=== PATIENT | male | born 1965 | race Caucasian/White ===

== ENCOUNTER 2023-12-01 18:45 | Inpatient (IN) ==
--- NOTE | 2023-12-01 19:08 | Emergency Department Note ---
Impression & Plan Urinary tract infection ADMIT ED Provider Note HPI: History obtained from patient. 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 Patient states that he did notice some pain 2 to 3 days ago in his left foot area. He states that he has been bandaging it daily as he did notice that the ulcer on the bottom of his foot was having some purulent drainage. Patient states he also had some dark-colored urine during this time. Patient states today he had some subjective fever/chills and generally did not feel well and he was concerned that he might have an infection in his foot or in his urine. On arrival here to the ED the patient is mildly tachycardic at 111, he is otherwise hemodynamically stable and saturating well on room air. Patient is afebrile on arrival. ROS: - Per HPI Differential Diagnosis: Sepsis, infected diabetic foot ulcer, cellulitis, urinary tract infection, pyelonephritis, amongst other potential pathologies. *Outpatient medications and allergy history reviewed. PE: General: Alert HEENT: Normocephalic, trachea midline Eyes: Extraocular eye movement is intact, no scleral erythema Pulmonary: Clear to auscultation bilaterally, no wheezing Cardio: Regular rate and rhythm GI: Abdomen is soft to palpation : No suprapubic tenderness MSK: Left foot is status post amputation of the first and second digit, there is moderate dorsal erythema of the left foot to the lateral aspect of the foot that is blanchable, there is no crepitus to palpation, there is mild surrounding erythema to an ulceration approximately 1 cm in diameter on the bottom of the foot with some mild purulent drainage Skin: No evidence of rash Neuro: Alert, no focal deficits Psychiatric: Cooperative INDEPENDENT INTERPRETATIONS: security monitor: (As interpreted by myself): - An order was placed for continuous cardiac monitoring - Patient was noted to be in sinus rhythm with a rate of 105 Interventions provided in ED: -IV fluid bolus, IV cefepime Medical Decision Making: IV was established and lab work obtained, patient was placed on residential monitor. Lab work shows a leukocytosis of 17.32, hemoglobin is stable at 11.7, platelet count is normal, CMP does not show any evidence of any critical findings. Urinalysis does appear to be consistent with infection, 2+ ketones are noted, urine nitrite is positive, leukocyte Estrace is 1+, there is no pyuria. Patient's foot also appears to have a mild cellulitis, x-ray imaging of the foot does not show any evidence of subcutaneous air/infection. No obvious osteomyelitis per my interpretation. Radiology interpretation is pending. With cellulitis in conjunction with his diabetes and foot ulcer as well as urinary tract infection with significant leukocytosis I feel the patient should be admitted for IV antibiotics and further care. I did discuss this with the patient and his significant other at the bedside and they are in agreement. Case was then discussed with the on-call hospitalist, Dr. Trujillo, and the patient was placed for admission in stable condition. Consultants/Discussions held with other healthcare providers: -Hospitalist, Dr. Trujillo Disposition discussion held by myself with: -Patient and patient's at the bedside Diagnosis: 1. Leukocytosis, acute 2. Diabetic foot ulcer, acute, left foot, with cellulitis 3. Urinary tract infection, acute 4. Ketonuria, acute Disposition: Admission Pedro Conde DO Emergency Medicine Past Med/Surg History Problem List (Updated 12/02/23 @ 00:03 by Pedro Conde DO) Urinary tract infection (Acute) Sepsis Social History Smoking Status: Former smoker Preferred Language: [place] Feels Safe at Home: Yes Allergies Allergies Allergy/AdvReac Type Severity Reaction Status Date / Time No Known Allergies Allergy Verified 12/01/23 19:15 Home Meds Home Medications Medication Instructions Recorded Confirmed insulin aspart U-100 100 unit/mL 1 sliding scale dose subcut UD 12/01/23 12/01/23 subcutaneous solution insulin glargine 100 unit/mL 15 unit subcut DAILY 12/01/23 12/01/23 subcutaneous solution (Lantus U-100 Insulin) Results & Data (ED) Vital Signs Vital Signs - 24 hr 12/01/23 18:46 12/01/23 19:26 12/01/23 19:26 Temperature 37 C Temperature Source Temporal Artery Scan Pulse Rate 111 H 102 H Pulse Rate [Apical] 100 H Pulse Rhythm Regular Pulse Rhythm [Apical] Regular Pulse Strength [Apical] Normal Respiratory Rate 20 16 16 Respiratory Effort / Characteristics Non-Labored Spontaneous Non-Labored Spontaneous Respiratory Depth Normal Normal Respiratory Pattern Regular Blood Pressure 128/61 Blood Pressure [Left Arm] 127/73 Blood Pressure Mean 83 Blood Pressure Mean [Left Arm] 91 Blood Pressure Position Sitting Blood Pressure Position [Left Arm] Sitting Pulse Oximetry 95 97 97 Oxygen Delivery Method Room Air Room Air Room Air Sepsis Recent Fever Within 48 Hours No Sepsis New/Unexplained Change in Mental Status No Sepsis Action Taken by Nursing No Action Required 12/01/23 19:31 12/01/23 23:00 12/01/23 23:21 Temperature Temperature Source Pulse Rate 100 H 91 H Pulse Rate [Apical] 88 Pulse Rhythm Pulse Rhythm [Apical] Regular Pulse Strength [Apical] Normal Respiratory Rate 16 Respiratory Effort / Characteristics Non-Labored Spontaneous Respiratory Depth Normal Respiratory Pattern Regular Blood Pressure Blood Pressure [Left Arm] 121/72 Blood Pressure Mean Blood Pressure Mean [Left Arm] 88 Blood Pressure Position Blood Pressure Position [Left Arm] Lying Pulse Oximetry 99 Oxygen Delivery Method Room Air Sepsis Recent Fever Within 48 Hours Sepsis New/Unexplained Change in Mental Status Sepsis Action Taken by Nursing Laboratory Data 12/01/23 19:19 12/01/23 19:19 Lab Results 12/01/23 12/01/23 Range/Units 19:19 20:49 WBC 17.32 H (4.8-10.8) K/ul RBC 4.15 L (4.70-6.10) M/uL Hgb 11.7 L (14.0-18.0) g/dl Hct 34.9 L (42.0-52.0) % MCV 84.1 (80.0-100.0) fL MCH 28.2 (25.0-34.0) pg MCHC 33.5 (32.0-36.0) g/dL RDW Std Deviation 37.5 (36.4-46.3) fL RDW Coeff of Sean 12.3 (11.5-14.5) % Plt Count 240 (130-400) K/uL MPV 10.1 (9.4-12.4) fL Immature Gran % (Auto) 0.6 % Neut % (Auto) 87.4 % Lymph % (Auto) 5.4 % [place] % (Auto) 6.4 % Eos % (Auto) 0.0 % Baso % (Auto) 0.2 % Neut # (Auto) 15.13 H (1.40-6.50) K/uL Lymph # (Auto) 0.94 L (1.20-3.40) K/uL [place] # (Auto) 1.11 H (0.11-0.59) K/uL Eos # (Auto) 0.00 (0.00-0.50) K/uL Baso # (Auto) 0.03 (0.00-0.20) K/uL Immature Gran # (Auto) 0.11 (0.01-0.20) K/uL PT 13.3 H (9.0-12.0) Seconds INR 1.2 H (0.9-1.1) Sodium 133 L (136-145) mmol/L Potassium 3.8 (3.5-5.1) mmol/L Chloride 101 (98-107) mmol/L Carbon Dioxide 23 (21-32) mmol/L Anion Gap 9 (3-11) BUN 25 H (6-23) mg/dl Creatinine 0.96 (0.6-1.4) mg/dl Est Cr Clr Drug Dosing 91.0 ml/min Est GFR ( Amer) 102.7 ml/min Est GFR (Non-Af Amer) 88.6 ml/min BUN/Creatinine Ratio 26.0 H (10-20) Glucose 247 H (70-99(Fasting)) mg/dl Calcium 9.5 (8.6-10.3) mg/dl Total Bilirubin 1.9 H (0.2-1.0) mg/dl AST 21 (13-39) U/L ALT 23 (7-52) U/L Alkaline Phosphatase 114 H (34-104) U/L Total Protein 6.7 (6.0-8.3) gm/dl Albumin 3.7 (3.4-5.0) gm/dl Globulin 3.0 (2.5-4.0) gm/dl Albumin/Globulin Ratio 1.2 (0.9-2) Lipase 6 L (11-82) U/L Urine Color [place] Urine Appearance Cloudy A (Clear) Urine pH 5.5 (4.5-7.5) Ur Specific [place] 1.035 H (1.000-1.030) Urine Protein 2+ H (Negative) Urine Glucose (UA) Negative (Negative) Urine Ketones 2+ H (Negative) Urine Blood Negative (Negative) Urine Nitrite Positive A (Negative) Urine Bilirubin 1+ H (Negative) Urine Urobilinogen Positive H (Negative) Ur Leukocyte Esterase 1+ H (Negative) Urine WBC (Auto) 0-5 (0-5) /hpf Urine RBC (Auto) 3-5 H (0-2) /hpf U Hyaline Cast (Auto) 11-20 H (0-2) /lpf U Epithel Cells (Auto) 3-5 H (0-2) /hpf Urine Bacteria (Auto) None Seen (None Seen) Urine Mucus Present A (None Prsent) Adenovirus (PCR) Not Detected (NotDetected) B. pertussis DNA (PCR) Not Detected (NotDetected) B.parapertussis DNA PCR Not Detected (NotDetected) C. pneumoniae DNA (PCR) Not Detected (NotDetected) Coronavirus OC43 (PCR) Not Detected (NotDetected) Coronavirus HKU1 (PCR) Not Detected (NotDetected) Coronavirus 229E (PCR) Not Detected (NotDetected) SARS-CoV-2 (PCR) Not Detected (NotDetected) Coronavirus NL63 (PCR) Not Detected (NotDetected) Human Metapneumovir PCR Not Detected (NotDetected) Influenza Type A (PCR) Not Detected (NotDetected) Influenza Type B (PCR) Not Detected (NotDetected) M. pneumoniae (PCR) Not Detected (NotDetected) Parainfluenza 1 (PCR) Not Detected (NotDetected) Parainfluenza 2 (PCR) Not Detected (NotDetected) Parainfluenza 3 (PCR) Not Detected (NotDetected) Parainfluenza 4 (PCR) Not Detected (NotDetected) RSV (PCR) Not Detected (NotDetected) Entero/Rhino (PCR) Not Detected (NotDetected) Administered Medications Discontinued Medications Sodium Chloride (Nss) 1,000 mls @ 999 mls/hr IV .Q1H1M STA Stop: 12/01/23 19:54 Last Infusion: 12/01/23 20:29 Dose: Infused Documented By: Admin: 12/01/23 19:21 Dose: 999 mls/hr Documented By: JONATHAN Cefepime HCl (Maxipime) 2,000 mg in 20 mls @ 5 mls/min IV NOW STA; Protocol Stop: 12/01/23 21:58 Last Admin: 12/01/23 23:06 Dose: 5 mls/min Documented By: SNS Discharge Plan Visit Data Chief Complaint: Urinary Symptoms Stated Complaint: POSSIBLE UTI, SWEATS, SHAKING ED Provider: Pedro Conde Discharge Problem: Urinary tract infection Forms Stand Alone Forms: [facility] Prescriptions Prescriptions: No Action insulin glargine [Lantus U-100 Insulin] 100 unit/mL solution 15 unit SUBCUT DAILY insulin aspart U-100 100 unit/mL solution 1 sliding scale dose subcut UD Rx Instructions: inject subcutaneously as directed CARB RATIO 1 UNIT 20 G with breakfast, 1 to 15 Grams with lunch and dinner plus 1 unit for 60 points blood gucose is above 120. MAXIUM OF 30 UNITS DAILY Referrals Referrals: PCP,NO [Physician] - Discharge Problem: Urinary tract infection Qualifiers: Urinary tract infection type: site unspecified Hematuria presence: with hematuria Qualified Code(s): N39.0 - Urinary tract infection, site not specified ; R31.9 - Hematuria, unspecified
[2023-12-01] MEDS: SODIUM CHLORIDE 0.9% 1,000 ML IV STA (19:21)
[2023-12-01 19:35] LABS: Basophils # (auto) 0.03 K/uL (0.00-0.20); Basophils % (auto) 0.2 %; Hematocrit (blood only) 34.9 % (42.0-52.0); Hemoglobin 11.7 g/dl (14.0-18.0); Immature Granulocytes # (auto) 0.11 K/uL (0.01-0.20); Immature Granulocytes % (auto) 0.6 %; Lymphocytes # (auto) 0.94 K/uL (1.20-3.40); Lymphocytes % (auto) 5.4 %; Mean Corpuscular Hemoglobin 28.2 pg (25.0-34.0); Mean Corpuscular Hgb Conc 33.5 g/dL (32.0-36.0); Mean Corpuscular Volume 84.1 fL (80.0-100.0); Mean Platelet Volume 10.1 fL (9.4-12.4); Monocytes # (auto) 1.11 K/uL (0.11-0.59); Monocytes % (auto) 6.4 %; Neutrophils # (auto) 15.13 K/uL (1.40-6.50); Neutrophils % (auto) 87.4 %; Platelet Count 240 K/uL (130-400); RDW Coefficient of Variation 12.3 % (11.5-14.5); RDW Standard Deviation 37.5 fL (36.4-46.3); Red Blood Count 4.15 M/uL (4.70-6.10); White Blood Count 17.32 K/ul (4.8-10.8)
[2023-12-01 19:49] LABS: Albumin Globulin Ratio 1.2 (0.9-2); Albumin Level 3.7 gm/dl (3.4-5.0); Bilirubin,Total 1.9 mg/dl (0.2-1.0); Calcium 9.5 mg/dl (8.6-10.3); Est GFR (African American) 102.7 ml/min; Est GFR (Non-African American) 88.6 ml/min; Potassium 3.8 mmol/L (3.5-5.1); Total Protein 6.7 gm/dl (6.0-8.3)
[2023-12-01 20:13] LABS: INR 1.2 (0.9-1.1); Prothrombin Time 13.3 Seconds (9.0-12.0)
[2023-12-01 20:15] LABS: Adenovirus PCR Not Detected (NotDetected); Bordetella parapertussis PCR Not Detected (NotDetected); Bordetella pertussis PCR Not Detected (NotDetected); Chlamydia pneumoniae PCR Not Detected (NotDetected); Coronavirus 229E PCR Not Detected (NotDetected); Coronavirus CoV-2 (COVID19)PCR Not Detected (NotDetected); Coronavirus HKU1 PCR Not Detected (NotDetected); Coronavirus NL63 PCR Not Detected (NotDetected); Coronavirus OC43PCR Not Detected (NotDetected); Human Metapneumovirus PCR Not Detected (NotDetected); Influenza A PCR Not Detected (NotDetected); Influenza B PCR Not Detected (NotDetected); Mycoplasma pneumoniae PCR Not Detected (NotDetected); Parainfluenza Virus 1 PCR Not Detected (NotDetected); Parainfluenza Virus 2 PCR Not Detected (NotDetected); Parainfluenza Virus 3 PCR Not Detected (NotDetected); Parainfluenza Virus 4 PCR Not Detected (NotDetected); Respiratory Syncytial VirusPCR Not Detected (NotDetected); Rhinovirus/Enterovirus PCR Not Detected (NotDetected)
[2023-12-01 21:23] LABS: Appearance Urine Cloudy (Clear); Bacteria Urine Automated None Seen (None Seen); Bilirubin Urine 1+ (Negative); Blood Urine Negative (Negative); Color Urine Orange; Glucose Urine UA Negative (Negative); Ketones Urine 2+ (Negative); Leukocyte Esterase Urine 1+ (Negative); Mucus Urine Present (None Prsent); Nitrite Urine Positive (Negative); Protein Urine 2+ (Negative); Specific Gravity Urine 1.035 (1.000-1.030); Urobilinogen Urine Positive (Negative); WBC Urine Automated 0-5 /hpf (0-5); pH Urine 5.5 (4.5-7.5)
[2023-12-01] MEDS: CEFEPIME 2,000 MG/20 ML VIAL IV STA (23:06)
--- NOTE | 2023-12-01 23:17 | History & Physical Report ---
Date of Service December 01, 2023 Assessment & Plan (1) Sepsis: Plan: 57-year-old male with past medical history significant for type 1 diabetes, mild nonproliferative diabetic retinopathy, vitamin D deficiency, history of amputation of bilateral metatarsophalangeal joint comes because of fevers chills and dark urine going on since last Saturday and also callus in his left dorsal aspect of foot draining since last . In the ER urine came back positive . Patient had episode of mild burning micturition. Denies any blood in the urine. States he is following with podiatry at [facility] for his callus. He has special boots. Ambulating okay. He had episode of vomiting today. After that his appetite is improved. Feeling weak and tired. Denies any headache or dizziness. Vision is okay currently. No earache. Had runny nose for couple of days but currently resolved. No sore throat. Currently no cough. No chest pain or shortness of breath. Last couple of days slept on recliner and has some mild flank discomfort. No abdominal pain. Normal bowel movements. Currently attending [facility]. Possible early sepsis presented with tachycardia Has leukocytosis Having fevers at home per patient. has UTI Cellulitis and infected callus of left foot . Foot xray no osteomyelitis Empiric Zosyn and Dapto IV fluids Follow cultures N.p.o. for now Consult podiatry in a.m. Close monitoring Diabetes type 1 Currently n.p.o. Cut back on Lantus 7 dose units daily as patient is npo Sliding scale Will follow blood sugars and HbA1c levels Anemia Hemoglobin of 11.7 Recent outpatient hemoglobin 14.4 Will check stool for Hemoccult Needs follow-up Elevated bilirubin Bilirubin 1.9 Alk phos 114 Possible from sepsis Follow repeat labs. DVT prophylaxis SCDs for now Disposition Med/telemetry Full code. History of Present Illness Chief Complaint: UTI and left foot cellulitis Primary Care Provider: Joyce Curry DO 57-year-old male with past medical history significant for type 1 diabetes, mild nonproliferative diabetic retinopathy, vitamin D deficiency, history of amputation of bilateral metatarsophalangeal joint comes because of fevers chills and dark urine going on since last Saturday and also callus in his left dorsal aspect of foot draining since last . In the ER urine came back positive. Patient had episode of mild burning micturition. Denies any blood in the urine. States he is following with podiatry at [facility] for his callus. He has special boots. Ambulating okay. He had episode of vomiting today. After that his appetite is improved. Feeling weak and tired. Denies any headache or dizziness. Vision is okay currently. No earache. Had runny nose for couple of days but currently resolved. No sore throat. Currently no cough. No chest pain or shortness of breath. Last couple of days slept on recliner and has some mild flank discomfort. No abdominal pain. Normal bowel movements. Currently attending [facility]. Past medical history. As mentioned above. Past surgical history. Palate/uvula surgery. Amputation of metatarsophalangeal joint bilateral. S/p appendectomy. S/p cholecystectomy. Status post left hip partial hemiarthroplasty. Social history. . Former smoker [id number]. Currently no alcohol use. No drug use. Family history. Brother had heart disorder. Allergies Allergy/AdvReac Type Severity Reaction Status Date / Time No Known Allergies Allergy Verified 12/01/23 19:15 Home Medications Medication Instructions Recorded Confirmed Type insulin aspart U-100 100 unit/mL 1 sliding scale dose subcut UD 12/01/23 12/01/23 History subcutaneous solution insulin glargine 100 unit/mL 15 unit subcut DAILY 12/01/23 12/01/23 History subcutaneous solution (Lantus U-100 Insulin) Past Med/Surg History Problem List (Updated 12/02/23 @ 00:03 by Pedro Conde DO) Urinary tract infection (Acute) Sepsis Social History Smoking Status: Former smoker Hx Alcohol Use: Yes Alcohol type: beer Hx Substance Use: No Preferred Language: Lebanese Communication Ability: Effective 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 Head- atraumatic Eyes- PERRL. ENT- oropharynx clear Neck- supple, no JVD. Lungs- clear to auscultation no wheezing or crackles. Heart- regular rhythm; no murmur, no gallop. Abdomen- normal bowel sounds, soft, nontender, no distension. Extremities- Left foot dorsal aspect infected callus seen with mild drainage Neuro- alert, oriented PERRL, ; no facial palsy; no dysarthria; moves extremities Results & Data Results & Data Vital Signs (Past 12 Hours) Vital Signs Temp Pulse Pulse Resp BP BP Pulse Ox 12/01/23 23:00 88 16 121/72 99 12/01/23 19:31 100 H 12/01/23 19:26 102 H 16 97 12/01/23 19:26 100 H 16 127/73 97 12/01/23 18:46 37 C 111 H 20 128/61 95 O2 Del Method 12/01/23 23:00 Room Air 12/01/23 19:31 12/01/23 19:26 Room Air 12/01/23 19:26 Room Air 12/01/23 18:46 Room Air Diagnostic Findings Laboratory Results WBC 17.32 K/ul (4.8-10.8) H 12/01/23 19:19 RBC 4.15 M/uL (4.70-6.10) L 12/01/23 19:19 Hgb 11.7 g/dl (14.0-18.0) L 12/01/23 19:19 Hct 34.9 % (42.0-52.0) L 12/01/23 19:19 MCV 84.1 fL (80.0-100.0) 12/01/23 19:19 MCH 28.2 pg (25.0-34.0) 12/01/23 19:19 MCHC 33.5 g/dL (32.0-36.0) 12/01/23 19:19 RDW Std Deviation 37.5 fL (36.4-46.3) 12/01/23 19:19 RDW Coeff of Sean 12.3 % (11.5-14.5) 12/01/23 19:19 Plt Count 240 K/uL (130-400) 12/01/23 19:19 MPV 10.1 fL (9.4-12.4) 12/01/23 19:19 Immature Gran % (Auto) 0.6 % 12/01/23 19:19 Neut % (Auto) 87.4 % 12/01/23 19:19 Lymph % (Auto) 5.4 % 12/01/23 19:19 [place] % (Auto) 6.4 % 12/01/23 19:19 Eos % (Auto) 0.0 % 12/01/23 19:19 Baso % (Auto) 0.2 % 12/01/23 19:19 Neut # (Auto) 15.13 K/uL (1.40-6.50) H 12/01/23 19:19 Lymph # (Auto) 0.94 K/uL (1.20-3.40) L 12/01/23 19:19 [place] # (Auto) 1.11 K/uL (0.11-0.59) H 12/01/23 19:19 Eos # (Auto) 0.00 K/uL (0.00-0.50) 12/01/23 19:19 Baso # (Auto) 0.03 K/uL (0.00-0.20) 12/01/23 19:19 Immature Gran # (Auto) 0.11 K/uL (0.01-0.20) 12/01/23 19:19 PT 13.3 Seconds (9.0-12.0) H 12/01/23 19:19 INR 1.2 (0.9-1.1) H 12/01/23 19:19 Sodium 133 mmol/L (136-145) L 12/01/23 19:19 Potassium 3.8 mmol/L (3.5-5.1) 12/01/23 19:19 Chloride 101 mmol/L (98-107) 12/01/23 19:19 Carbon Dioxide 23 mmol/L (21-32) 12/01/23 19:19 Anion Gap 9 (3-11) 12/01/23 19:19 BUN 25 mg/dl (6-23) H 12/01/23 19:19 Creatinine 0.96 mg/dl (0.6-1.4) 12/01/23 19:19 Est Cr Clr Drug Dosing 91.0 ml/min 12/01/23 19:19 Est GFR ( Amer) 102.7 ml/min 12/01/23 19:19 Est GFR (Non-Af Amer) 88.6 ml/min 12/01/23 19:19 BUN/Creatinine Ratio 26.0 (10-20) H 12/01/23 19:19 Glucose 247 mg/dl (70-99(Fasting)) H 12/01/23 19:19 Calcium 9.5 mg/dl (8.6-10.3) 12/01/23 19:19 Total Bilirubin 1.9 mg/dl (0.2-1.0) H 12/01/23 19:19 AST 21 U/L (13-39) 12/01/23 19:19 ALT 23 U/L (7-52) 12/01/23 19:19 Alkaline Phosphatase 114 U/L (34-104) H 12/01/23 19:19 Total Protein 6.7 gm/dl (6.0-8.3) 12/01/23 19:19 Albumin 3.7 gm/dl (3.4-5.0) 12/01/23 19:19 Globulin 3.0 gm/dl (2.5-4.0) 12/01/23 19:19 Albumin/Globulin Ratio 1.2 (0.9-2) 12/01/23 19:19 Lipase 6 U/L (11-82) L 12/01/23 19:19 Urine Color [place] 12/01/23 20:49 Urine Appearance Cloudy (Clear) A 12/01/23 20:49 Urine pH 5.5 (4.5-7.5) 12/01/23 20:49 Ur Specific [place] 1.035 (1.000-1.030) H 12/01/23 20:49 Urine Protein 2+ (Negative) H 12/01/23 20:49 Urine Glucose (UA) Negative (Negative) 12/01/23 20:49 Urine Ketones 2+ (Negative) H 12/01/23 20:49 Urine Blood Negative (Negative) 12/01/23 20:49 Urine Nitrite Positive (Negative) A 12/01/23 20:49 Urine Bilirubin 1+ (Negative) H 12/01/23 20:49 Urine Urobilinogen Positive (Negative) H 12/01/23 20:49 Ur Leukocyte Esterase 1+ (Negative) H 12/01/23 20:49 Urine WBC (Auto) 0-5 /hpf (0-5) 12/01/23 20:49 Urine RBC (Auto) 3-5 /hpf (0-2) H 12/01/23 20:49 U Hyaline Cast (Auto) 11-20 /lpf (0-2) H 12/01/23 20:49 U Epithel Cells (Auto) 3-5 /hpf (0-2) H 12/01/23 20:49 Urine Bacteria (Auto) None Seen (None Seen) 12/01/23 20:49 Urine Mucus Present (None Prsent) A 12/01/23 20:49 Adenovirus (PCR) Not Detected (NotDetected) 12/01/23 19:19 B. pertussis DNA (PCR) Not Detected (NotDetected) 12/01/23 19:19 B.parapertussis DNA PCR Not Detected (NotDetected) 12/01/23 19:19 C. pneumoniae DNA (PCR) Not Detected (NotDetected) 12/01/23 19:19 Coronavirus OC43 (PCR) Not Detected (NotDetected) 12/01/23 19:19 Coronavirus HKU1 (PCR) Not Detected (NotDetected) 12/01/23 19:19 Coronavirus 229E (PCR) Not Detected (NotDetected) 12/01/23 19:19 SARS-CoV-2 (PCR) Not Detected (NotDetected) 12/01/23 19:19 Coronavirus NL63 (PCR) Not Detected (NotDetected) 12/01/23 19:19 Human Metapneumovir PCR Not Detected (NotDetected) 12/01/23 19:19 Influenza Type A (PCR) Not Detected (NotDetected) 12/01/23 19:19 Influenza Type B (PCR) Not Detected (NotDetected) 12/01/23 19:19 M. pneumoniae (PCR) Not Detected (NotDetected) 12/01/23 19:19 Parainfluenza 1 (PCR) Not Detected (NotDetected) 12/01/23 19:19 Parainfluenza 2 (PCR) Not Detected (NotDetected) 12/01/23 19:19 Parainfluenza 3 (PCR) Not Detected (NotDetected) 12/01/23 19:19 Parainfluenza 4 (PCR) Not Detected (NotDetected) 12/01/23 19:19 RSV (PCR) Not Detected (NotDetected) 12/01/23 19:19 Entero/Rhino (PCR) Not Detected (NotDetected) 12/01/23 19:19 Code Status & VTE Plan VTE Prophylaxis Plan VTE Prophylaxis will be ordered: Yes
--- OUTSIDE RECORDS SUMMARY | 2023-12-02 01:13 | External Medical Summary | Summary of Care ---
Author Name Unknown Organization [facility] Address [address] [place] [address] Phone [phone] Care Team Providers Care Etl Data Architect Name Role Phone Joyce Curry DO Primary Care Provider [phone]- [phone] Encounter Details Date Type Department Care Team (Late st Contact Info) Description 08/27/2023 Orders Only Family Practice [facility] [place] [address] [place] [address] Joyce Curry DO [address] [place] [address] Allergies Active Allergy Reactions Criticality Noted Date Comments Morphine 07/11/2022 documented as of this encounter (statuses as of 08/27/2023) Medications Medication Sig Dispensed Refills Start Date End Date Status NOVOLIN R 100 UNIT/ML IJ SOLNIndications:DM type 1, goal A1c below 7 1:30 carb ratio scale 1 Vial 5 12/17/2012 Active Ascorbic Acid 500 MG Oral Tablet Take 2 Tablets by mouth in the morning. 0 Active Aspirin 81 MG Oral Tablet Delayed Release Take 1 Tablet by mouth in the morning. 0 Active Cholecalciferol 25 MCG (1000 UT) Oral Tablet Take 1 Tablet by mouth in the morning. 0 Active Cinnamon 500 MG Oral Tablet Take 2 Tablets by mouth in the morning. 0 Active Cranberry 500 MG Oral Tablet Take by mouth 500 mg daily . 0 Active Baqsimi One Pack 3 MG/DOSE Nasal Powder (Glucagon) Administer into nostril as needed for Hypoglycemia (low sugar). Use 3 mg in the nose as needed (3 mg (one actuation) into a single nostril for hypoglycemia; if no response, may repeat in 15 minutes using a new intranasal device.) 0 Active Ketostix In Vitro Strip (Acetone (Urine) Test) USE 1 DIRECTED 0 12/08/2020 Acti ve Lutein 20 MG Oral Capsule Take 1 Capsule by mouth in the morning. 0 Active Potassium Gluconate 595 (99 K) MG Oral Tablet Take by mouth 1 Tablet daily . 0 Active Saw [place] Complex Ex St Oral Capsule Take by mouth 1 Capsule daily . 0 Active Vitamin-B Complex Oral Tablet Take by mouth 1 Tablet in the morning. 0 Active Lantus 100 UNIT/ML Subcutaneous Solution Inject 30 Units under the skin in the morning. 0 09/23/2021 Active Magnesium 400 MG Oral Tablet Take 1 Tablet by mouth every evening. 0 Active Insulin Aspart 100 UNIT/ML Injection Solution (NovoLOG) INJECT 5-6 UNITS SUBCUTANEOUSLY DIRECTED 4-5 TIMES A DAY. 1 UNIT FOR 50 MG BLOOD GLUCOSE ABOVE 150, MAX DAILY 30 UNITS 0 11/27/2021 Active documented as of this encounter (statuses as of 08/27/2023) Active Problems Problem Noted Date Diagnosed Date Type 1 diabetes mellitus wit h proliferative diabetic retinopathy without macular edema, left eye 07/17/2023 Type 1 diabetes mellitus wit h proliferative diabetic retinopathy without macular edema, right eye 02/04/2023 Mild nonproliferative diabetic retinopathy 07/11 Acquired absence of other left toe(s) 07/11/2022 Non-pressure chronic ulcer o f other part of left foot limited to breakdown of skin 07/11/2022 Type 1 diabetes mellitus with diabetic polyneuro seb 07/11/2022 Vitamin D deficiency 04/29/2019 Type 1 diabetes mellitus wit h hemoglobin A1c goal of less than 7.0% 02/10/2009 Overview: Per Diabetes Taxonomy. 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 ICD-10 update of inactive term documented as of this encounter (statuses as of 08/27/2023) Immunizations Name Administration Dates Next Due TDAP (age 10 and older)(Boostrix) 07/17/2023,01/2012 documented as of this encounter Social History Tobacco Use Types Packs/Day Years Used Date Smoking Tobacco: Former Cigarettes 3 1 987 - 1989 Smokeless Tobacco: Never Alcohol Use Standard Drinks/Week Comments Not Currently 0 (1 standard drink = 0.6 oz pur e alcohol) Sex and Gender Information Value Date Recorded Sex Assigned at Male 07/17/2023 6:54 AM EDT Gender Identity Male 07/17/2023 6:54 AM EDT Sexual Orientation Straight 07/17/2023 6: 54 AM EDT Job Start Date Occupation Industry Not on file Not on file Not on file documented as of this encounter Plan of Treatment Upcoming Encounters Date Type Department Care Team (Late st Contact Info) Description 07/22/2024 7:40 AM EDT Office Visit Family Practice [address] [place] [address] Joyce Curry DO [address] [place] [address] Pending Results Name Type Priority Associated Diagnoses Date /Time CHEMISTRY-OUTSIDE Lab Routine 024 Health Maintenance Due Date Last Done Comments Pneumococcal Vaccine: Pediatrics (0 to 5 Years) and At-Risk Patients (6 to 64 Years) (1 of 2 - PCV) 12/30/1973 HIV Screening 12/30/1982 Hepatitis C Screening 12/30/1985 Hepatitis B (1 of 3 - 19+ 3-dose series) 12/30/1986 Cologuard 12/30/2012 Fecal Occult Blood Test 12/30/2012 Sigmoidoscopy 12/30/2012 Diabetic Foot Exam 12/17/2013 12/17/2012, 12/19/2011 Zoster Vaccines (1 of 2) 12/30/2017 COVID-19 Vaccine ( - season) 2022 Albumin/Creatinine Ratio 08/26/2023 023, 08/09/2021, 12/17/2012, Additional history exists GFR 08/26/2023 08/25/2022, 07/15, 08/09/2021, Additional history exists HbA1c 11/08/2023 05/10/2023, 12/15, 08/25/2022, Additional history exists Influenza Vaccine (FLU shot) (Season Ended) 2023 Diabetic Eye Exam 12/29/2023 12/28/2022, , 11/05/2022, Additional history exists Depression Screening 07/16/2024 07/17/2023 Lipid Panel 08/26/2027 08/25/2022, 07/2012, 12/20/2010, Additional history exists Colonoscopy 02/20/2031 02/20/2021 Colorectal Cancer Screening 02/20/2031 DTaP,Tdap,and Td Vaccines (3 - Td or Tdap) 07/16/2033 07/17/2023, 10/23/2011 GARDASIL-HPV IMMUNIZATION SERIES Aged Out No longer eligible based on patient's age to complete this topic MENINGOCOCCAL (MENACTRA/MENVEO) Aged Out No longer eligible based on patient's age to complete this topic documented as of this encounter Medical Devices Not on filedocumented as of this encounter Care Teams Etl Data Architect Relationship Specialty Start Date End Date Joyce Curry DO [address] [facility] [place] [address] PCP - General Family Medicine 07/11/22 documented as of this encounter
--- OUTSIDE RECORDS SUMMARY | 2023-12-02 01:13 | External Medical Summary | Summary of Care ---
Author Name Unknown Organization [facility] Address [address] [place] [address] Phone [phone] Care Team Providers Care Crystal Attacher Name Role Phone Joyce Curry DO Primary Care Provider [phone]- [phone] Reason for Visit * Reason Comments Acute Video visit. Symptom s started last weekend, dark urine with burning sensation and frequency, symptoms have improved. Encounter Details Date Type Department Care Team (Late st Contact Info) Description 09/16/2023 9:00 AM EDT Telemedicine Family Practice [facility] [address] [place] [address] Eric Choi PA-C [address] [place] [address] Dysuria* Allergies Active Allergy Reactions Criticality Noted Date Comments Morphine 07/11/2022 documented as of this encounter (statuses as of 09/16/2023) Medications Medication Sig Dispensed Refills Start Date End Date Status Ascorbic Acid 500 MG Oral Tablet Take 2 Tablets by mouth in the morning. Active Aspirin 81 MG Oral Tablet Delayed Release Take 1 Tablet by mouth in the morning. Active Cholecalciferol 25 MCG (1000 UT) Oral Tablet Take 1 Tablet by mouth in the morning. Active Cinnamon 500 MG Oral Tablet Take 2 Tablets by mouth in the morning. Active Cranberry 500 MG Oral Tablet Take by mouth 500 mg daily . Active Baqsimi One Pack 3 MG/DOSE Nasal Powder (Glucagon) Administer into nostril as needed for Hypoglycemia (low sugar). Use 3 mg in the nose as needed (3 mg (one actuation) into a single nostril for hypoglycemia; if no response, may repeat in 15 minutes using a new intranasal device.) Active Ketostix In Vitro Strip (Acetone (Urine) Test) USE 1 DIRECTED 12/08/2020 Acti ve Lutein 20 MG Oral Capsule Take 1 Capsule by mouth in the morning. Active Potassium Gluconate 595 (99 K) MG Oral Tablet Take by mouth 1 Tablet daily . Active Saw [place] Complex Ex St Oral Capsule Take by mouth 1 Capsule daily . Active Vitamin-B Complex Oral Tablet Take by mouth 1 Tablet in the morning. Active Lantus 100 UNIT/ML Subcutaneous Solution Inject 30 Units under the skin in the morning. 09/23/2021 Active Magnesium 400 MG Oral Tablet Take 1 Tablet by mouth every evening. Active Insulin Aspart 100 UNIT/ML Injection Solution (NovoLOG) INJECT 5-6 UNITS SUBCUTANEOUSLY DIRECTED 4-5 TIMES A DAY. 1 UNIT FOR 50 MG BLOOD GLUCOSE ABOVE 150, MAX DAILY 30 UNITS 11/27/2021 Active Nitrofurantoin Monohyd Macro 100 MG Oral Capsule (Macrobid)Indicat ions:Dysuria Take 1 Capsule by mouth in the morning and 1 Capsule before bedtime. Do all this for 10 days. With food until gone. 20 Capsule 09/16/2023 09/26/19 24 Active NOVOLIN R 100 UNIT/ML IJ SOLNIndications:D M type 1, goal A1c below 7 1:30 carb ratio scale 1 Vial 5 12/17/2012 09/16/19 24 Discontinu ed(End of Procedure) documented as of this encounter (statuses as of 09/16/2023) Active Problems Problem Noted Date Diagnosed Date [...] Type 1 diabetes mellitus with diabetic polyneuro sbe 07/11/2022 Vitamin D deficiency 04/29/2019 Type 1 diabetes mellitus wit h hemoglobin A1c goal of less than 7.0% 02/10/2009 Overview: Per Diabetes Taxonomy. 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 ICD-10 update of inactive term documented as of this encounter (statuses as of 09/16/2023) Immunizations Name Administration Dates Next Due TDAP (age 10 and older)(Boostrix) 07/17/2023,01/2012 documented as of this encounter Social History Tobacco Use Types Packs/Day Years Used Date Smoking Tobacco: Former Cigarettes 1 7 - 1989 Smokeless Tobacco: Never Alcohol Use [...] on file documented as of this encounter Progress Notes * Eric Choi PA-C - 09/16/2023 9:10 AM EDT Images from the original note were not included. History of Present Illness Telemedicine: Patient location: HOME. I was in a hospital or clinic location. After connecting through [employer],patient was verified with two unique identifiers. 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 Methods to assure confidentiality were taken. Patient acknowledged consent and understanding of pr ivacy and security of the Telemedicine visit. The patient agreed to participate. Magen Castillo is a 57 year old male that presents for acute visit. Video visit. Symptoms started 1-2 weeks ago. Reported sx's of darker urine with burning, frequency.Also felt fatigued and low energy, as well as temporary poor appetitive. Had a couple episodes of night sweats. Admitted to stress at that time as he was busy getting ready for a camping trip. Stateshe was drinking a lot of Celsius energy drink, was wonder if this was contributing. Denied hematuria, flank pain, fever, abd pain, N/V/D/C. Sx's went away by this weekend. Still has mild burning, butstates urine color has cleared up to a mid-dark yellow. - does have distant hx of renal calculi. He states this does not feel like a stone to him, but doesfeel like a UTI. ? Prostatitis. They will be camping for the rest of this week, so at least 4-5 more days. Hx of type I diabetes, follows with endo. Labs 08/2023 reviewed - A1C 6.6; BMP normal. Patient Active Problem List Diagnosis Type 1 diabetes mellitus with hemoglobin A1c goal of less than 7.0% (HCC) Mild nonproliferative diabetic retinopathy (HCC) Vitamin D deficiency Acquired absence of other left toe(s) (HCC) Non-pressure chronic ulcer of other part of left foot limited to breakdown of skin (HCC) Type 1 diabetes mellitus with diabetic polyneuropathy (HCC) 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, right eye (HCC) 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, left eye (HCC) Review of patient's allergies indicates: Allergen Reactions Morphine Current Outpatient Medications Medication Sig Dispense Refill Ascorbic Acid 500 MG Oral Tablet Take 2 Tablets by mouth in the morning. Aspirin 81 MG Oral Tablet Delayed Release Take 1 Tablet by mouth in the morning. Cholecalciferol 25 MCG (1000 UT) Oral Tablet Take 1 Tablet by mouth in the morning. Cinnamon 500 MG Oral Tablet Take 2 Tablets by mouth in the morning. Cranberry 500 MG Oral Tablet Take by mouth 500 mg daily . Baqsimi One Pack 3 MG/DOSE Nasal Powder (Glucagon) Administer into nostril as needed for Hypoglycemia (low sugar). Use 3 mg in the nose as needed (3 mg (one actuation) into a single nostril for hypoglycemia; if no response, may repeat in 15 minutes using a new intranasal device.) Potassium Gluconate 595 (99 K) MG Oral Tablet Take by mouth 1 Tablet daily . Saw [place] Complex Ex St Oral Capsule Take by mouth 1 Capsule daily . Vitamin-B Complex Oral Tablet Take by mouth 1 Tablet in the morning. Lantus 100 UNIT/ML Subcutaneous Solution Inject 30 Units under the skin in the morning. Magnesium 400 MG Oral Tablet Take 1 Tablet by mouth every evening. Insulin Aspart 100 UNIT/ML Injection Solution (NovoLOG) INJECT 5-6 UNITS SUBCUTANEOUSLY DIRECTED4-5 TIMES A DAY. 1 UNIT FOR 50 MG BLOOD GLUCOSE ABOVE 150, MAX DAILY 30 UNITS Nitrofurantoin Monohyd Macro 100 MG Oral Capsule (Macrobid) Take 1 Capsule by mouth in the morning and 1 Capsule before bedtime. Do all this for 10 days. With food until gone. 20 Capsule 0 Ketostix In Vitro Strip (Acetone (Urine) Test) USE 1 DIRECTED Lutein 20 MG Oral Capsule Take 1 Capsule by mouth in the morning. No current facility-administered medications for this visit. Past Medical History: Diagnosis Date Diabetes (HCC) Past Surgical History: Procedure Laterality Date PALATE/UVULA SURGERY NEC ND AMPUTATION TOE METATARSOPHALANGEAL JOINT Bilateral great toe and second toe ND APPENDECTOMY ND CHOLECYSTECTOMY ND HEMIARTHROPLASTY HIP PARTIAL Left Family History Problem Relation Name Age of Onset No Known Problems Mother No Known Problems Father Heart Disorder Brother CHF since childhood No Known Problems Grandmother (Maternal) No Known Problems Grandfather (Maternal) No Known Problems Grandmother (Paternal) No Known Problems Grandfather (Paternal) Family Status Relation Status Mo Alive Fa Bro Alive MGMA (Not Specified) MGFA (Not Specified) PGMA (Not Specified) PGFA (Not Specified) Social History Socioeconomic History Marital status: Tobacco Use Smoking status: Former Current packs/day: 0.00 Types: Cigarettes Start date: 1986 Quit date: 1989 Years since quittin.4 Smokeless tobacco: Never Vaping Use Vaping status: Never Used Substance and Sexual Activity Alcohol use: Not Currently Drug use: Not Currently Social Determinants of Health Food Insecurity: No Food Insecurity (07/17/2023) Hunger Vital Sign Worried About Running Out of Food in the Last Year: Never true Ran Out of Food in the Last Year: Never true Review of Systems Constitutional: Positive for chills, diaphoresis and fatigue. Negative for fever. Respiratory: Negative. Negative for shortness of breath. Cardiovascular: Negative. Negative for chest pain, palpitations and leg swelling. Gastrointestinal: Negative. Negative for abdominal pain, blood in stool, constipation, diarrhea, nausea and vomiting. Endocrine: Negative. Genitourinary: Positive for dysuria, frequency and urgency. Negative for flank pain and hematuria. Neurological: Negative. Negative for syncope and light-headedness. Hematological: Negative. Psychiatric/Behavioral: Negative. All other systems reviewed and are negative. Physical Exam There were no vitals taken for this visit. Physical exam limited secondary to the restrictions of audio/video telemedicine. I have reviewed most recent labs BMP results Recent Labs Units 08/26/23 0000 08/25/22 0000 POTASSIUM-OUTSIDE LAB MMOL 3.8 4.1 CREATININE-OUTSIDE LAB MG/DL 0.80 0.8 HbA1c results Recent Labs Units 08/26/23 0000 05/10/23 0000 01/09/23 0000 HEMOGLOBIN, [id number] LAB % 6.6* 6.3* 6.3* Assessment and Plan Dysuria Differential diagnosis includes UTI, renal calculi, subacute prostatitis. Patient states symptoms has been progressively improving, but are still present to a mild degree. Will belt picker Macrobid. Explained to the patient that ideally we would like to get a urine sample prior to him starting, howeverhe will not be back in town for the next 4-5 days. Will start Macrobid if symptoms start to pick upagain. Knows to go to the ED with severely worsening symptoms. - Nitrofurantoin Monohyd Macro 100 MG Oral Capsule (Macrobid); Take 1 Capsule by mouth in the morning and 1 Capsule before bedtime. Do all this for 10 days. With food until gone. Wrap-Up Follow Up: Return if symptoms worsen or fail to improve, for As scheduled. | For: As scheduled Time: I spent a total of 10-19 minutes (exact time 13 mins) on the date of service in preparation, delivery, and documentation of the care provided to Magen Castillo excluding any time spent in the performance of separately billed services. Telemedicine: Patient location: HOME. I was in a hospital or clinic location. After connecting through televideo,patient was verified with two unique identifiers. 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 Methods to assure confidentiality were taken. Patient acknowledged consent and understanding of pr ivacy and security of the Telemedicine visit. The patient agreed to participate. * Yocasta Ordonez LPN - 09/16/2023 9:08 AM EDT Chief Complaint Patient presents with Acute Video visit. Symptoms started last weekend, dark urine with burning sensation and frequency, symptoms have improved. documented in this encounter Plan of Treatment Upcoming Encounters Date Type Department Care Team (Late st Contact Info) Description 07/22/2024 7:40 AM EDT Office Visit [facility] [address] [place] [address] Joyce Curry DO [address] [place] [address] Health Maintenance Due Date Last Done Comments [...] Vaccines (1 of 2) 12/30/2017 COVID-19 Vaccine (1 - 2022- season) 2022 Influenza Vaccine (FLU shot) (Season Ended) 2023 Diabetic Eye Exam 12/29/2023 12/28/2022, , 11/05/2022, Additional history exists HbA1c 02/26/2024 08/26/2023, 04/16, 01/09/2023, Additional history exists Depression Screening 07/16/2024 07/17/2023 Albumin/Creatinine Ratio 08/25/2024 024, 08/25/2022, 08/09/2021, Additional history exists GFR 08/25/2024 08/26/2023, 0506/2022, 08/09/2021, Additional history exists Lipid Panel 08/25/2028 08/26/2023, 08/13, 12/17/2012, Additional history exists Colonoscopy 02/20/2031 02/20/2021 Colorectal [...] Not on filedocumented as of this encounter Visit Diagnoses Diagnosis Dysuria- Primary documented in this encounter Care Teams Crystal Attacher Relationship Specialty Start Date End Date Joyce Curry DO [address] [facility] [place] [address] PCP - General Family Medicine 07/11/22 documented as of this encounter"
--- OUTSIDE RECORDS SUMMARY | 2023-12-02 01:13 | External Medical Summary | Summary of Care ---
Author Name Unknown Organization [facility] Address [address] [place] [address] Phone [phone] Care Team Providers Care Diesel Truck Crane Operator Name Role Phone Eric Choi PA-C Primary Care Provide r Encounter Details Date Type Department Care Team (Late st Contact Info) Description 11/19/2023 Orders Only Family Practice [facility] [place] [address] [place] [address] Eric Choi PA-C [address] [place] [address] Allergies Active Allergy Reactions Criticality Noted Date Comments Morphine 07/11/2022 documented as of this encounter (statuses as of 11/19/2023) Medications Medication Sig Dispensed Refills Start Date [...] mouth 1 Tablet daily . 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 ICD-10 update of inactive term documented as of this encounter (statuses as of 11/19/2023) Immunizations Name Administration Dates Next Due TDAP (age 10 and older)(Boostrix) 07/17/2023,01/2012 documented as of this encounter Social History Tobacco Use Types Packs/Day Years Used Date Smoking Tobacco: Former Cigarettes 1989 Smokeless Tobacco: Never Alcohol Use Standard [...] 7:40 AM EDT Office Visit Family Practice [place] [address] [place] [address] Joyce Curry DO [address] [place] [address] Health Maintenance Due Date Last Done Comments Pneumococcal Vaccine: Pediatrics (0 to 5 Years) and At-Risk Patients (6 to 64 Years) (1 of 2 - PCV) 12/30/1973 HIV Screening 12/30/1982 Hepatitis C Screening 12/30/1985 Hepatitis B Vaccine (1 of 3 - 19+ 3-dose series) 12/30/1986 Cologuard 12/30/2012 Fecal Occult Blood Test 12/30/2012 Sigmoidoscopy 12/30/2012 Diabetic Foot Exam 12/17/2013 12/17/2012, 12/19/2011 Zoster Vaccines (1 of 2) 12/30/2017 COVID-19 Vaccine (1 - 2022- season) 2022 Influenza Vaccine (FLU shot) (#1) 2023 HbA1c 02/26/2024 08/26/2023, 04/16, 01/09/2023, Additional history exists Diabetic Eye Exam 04/17/2024 04/17/2023, , 12/28/2022, Additional history exists Depression Screening 07/16/2024 07/17/2023 Albumin/Creatinine Ratio 08/25/2024 024, 08/25/2022, 08/09/2021, Additional history exists GFR 08/25/2024 11/15/2023, 08/13, 08/25/2022, Additional history exists Lipid Panel 08/25/2028 08/26/2023, 08/13, 12/17/2012, Additional history exists Colonoscopy 02/20/2031 02/20/2021 Colorectal Cancer Screening 02/20/2031 DTaP,Tdap,and Td Vaccines (3 - Td or Tdap) 07/16/2033 07/17/2023, 10/23/2011 HPV (Gardasil) Vaccine Aged Out No lo nger eligible based on patient's age to complete this topic MENINGOCOCCAL (MENACTRA/MENVEO) Aged Out No longer eligible based on patient's age to complete this topic documented as of this encounter Medical Devices Not on filedocumented as of this encounter Procedures Procedure Name Priority Date/Time Associated Diagnosis Comments CHEMISTRY-OUTSIDE Routine 11/15/2023 documented in this encounter Results * (ABNORMAL) CHEMISTRY-OUTSIDE (11/15/2023) Not all results display below - see scan for full detail OUTSIDE LAB (SEE SCANNED REPORT) Comment:SCAN INCL: ED LABS: CBCD,CMP CREATININE-OUTSID E LAB 1.00 0.40 - 1.50 MG/DL OUTSIDE LAB (SEE SCANNED REPORT) EGFR-OUTSIDE LAB 89 OUT SIDE LAB (SEE SCANNED REPORT) POTASSIUM-OUTSIDE LAB 3.6 3.6 - 5.0 MMOL/L OUTSIDE LAB (SEE SCANNED REPORT) GLUCOSE-OUTSIDE LAB 29(A) 65 - 110 MG/DL OUTSIDE LAB (SEE SCANNED REPORT) HOURS FASTING OUTSID E LAB (SEE SCANNED REPORT) TRIGLYCERIDES-OUT SIDE LAB OUTSIDE LAB (SEE SCANNED REPORT) CHOLESTEROL-OUTSI DE LAB OUTSIDE LAB (SEE SCANNED REPORT) HDL-OUTSIDE LAB OUTS SELIN LAB (SEE SCANNED REPORT) CHOL/HDL RATIO-OUTSIDE LAB OUTSIDE LA B (SEE SCANNED REPORT) LDL (CALCULATED)-OUTS SELIN LAB OUTSIDE LAB (SEE SCANNED REPORT) LDL (DIRECT MEASURE)-OUTSIDE LAB OUTSIDE LAB (SEE SCANNED REPORT) HEMOGLOBIN, T6W-VQDQMAC LAB OUTSIDE LAB (SEE SCANNED REPORT) PHOSPHORUS-OUTSID E LAB OUTSIDE LAB (SEE SCANNED REPORT) PTH-OUTSIDE LAB OUTS SELIN LAB (SEE SCANNED REPORT) MICROALBUMIN RATIO-OUTSIDE LAB OUTSIDE LA B (SEE SCANNED REPORT) PROTEIN, UA-OUTSIDE LAB OUTSIDE LAB (SEE SCANNED REPORT) HGB 14.4 14.0 - 18.0 GM/DL OUTSIDE LAB (SEE SCANNED REPORT) 11/15/2023 Blake Pruitt MD LABORATORY OUTSIDE LAB (SEE SCANNED REPORT) documented in this encounter Care Teams Diesel Truck Crane Operator Relationship Specialty Start Date End Date Eric Choi PA-C [address] [facility] [place] [address] PCP - General Physician Angle Shearer 10/24/23 documented as of this encounter
--- OUTSIDE RECORDS SUMMARY | 2023-12-02 01:13 | External Medical Summary | Summary of Care ---
Author Name Unknown Organization [facility] Address [address] [place] [address] Phone [phone] Care Team Providers Care Sheet Music Salesperson Name Role Phone Joyce Curry DO Primary Care Provider [phone]- [phone] Reason for Visit * Reason Onset Date Comments Forms Request 04/30/2023 Encounter Details Date Type Department Care Team (Late st Contact Info) Description 04/30/2023 Telephone Family Practice [facility] [address] [place] [address] Joyce Curry DO [address] [place] [address] Forms Request Allergies Active Allergy Reactions Criticality Noted Date Comments Morphine 07/11/2022 documented as of this encounter (statuses as of 07/30/2023) Medications Medication Sig Dispensed Refills Start Date [...] 1 Tablet daily . 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 ICD-10 update of inactive term documented as of this encounter (statuses as of 07/30/2023) Immunizations Name Administration Dates Next Due TDAP (age 10 and older)(Boostrix) 10/23/2011 documented as of this encounter Social History Tobacco Use Types Packs/Day Years Used Date Smoking Tobacco: Former Cigarettes 3 - 1989 Smokeless Tobacco: Never Alcohol Use [...] on file documented as of this encounter Miscellaneous Notes * Telephone Encounter - Tara Prescott LPN - 04/30/2023 9:40 AM EST Form completed and placed in doctors box for signature. Office notes attached. * Telephone Encounter - Joann Everett OSA - 04/30/2023 9:19 AM EST Pt dropped off form to be completed for diabetic shoes. This can be faxed to [employer] [phone] if it can be completed. documented in this encounter Plan of Treatment Upcoming Encounters Date Type Department Care Team (Late st Contact Info) Description 07/22/2024 7:40 AM EDT Office Visit Family Practice [address] [place] [address] Joyce Curry DO [address] [id number] Health Maintenance Due Date Last Done Comments [...] COVID-19 Vaccine (1 - 2022- season) 2022 Albumin/Creatinine Ratio 08/26/2023 023, 08/09/2021, [...] filedocumented as of this encounter Care Teams Sheet Music Salesperson Relationship Specialty Start Date End Date Joyce Curry DO [address] [facility] [place] [address] PCP - General Family Medicine 07/11/22 documented as of this encounter
--- OUTSIDE RECORDS SUMMARY | 2023-12-02 01:13 | External Medical Summary | Summary of Care ---
Author Name Unknown Organization [facility] Address [address] [place] [address] Phone [phone] Care Team Providers Care Aesthetician Name Role Phone Joyce Curry DO Primary Care Provider +1- [phone] Reason for Visit * Reason Onset Date Comments Routine Exam Immunizations 07/17/2023 Encounter Details Date Type Department Care Team (Latest Contact Info) Description 07/17/2023 7:00 AM EDT Office Visit [facility] [address] [place] [address] Joyce Curry DO [address] [place] [address] Type 1 diabetes mellitus with hemoglobin A1c goal of less than 7.0% ([facility])*; 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, right eye (HCC); Type 1 diabetes mellitus with diabetic polyneuropathy ([facility]); 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, left eye ([facility]); Non-pressure chronic ulcer of other part of left foot limited to breakdown of skin ([facility]); Acquired absence of other left toe(s) ([facility]); Vitamin D deficiency; Need for uyvukunoxe-oqqejqs-ndtz ussis (Tdap) vaccine Allergies Active Allergy Reactions Criticality Noted Date Comments Morphine 07/11/2022 documented as of this encounter (statuses as of 07/17/2023) Medications Medication Sig Dispensed Refills Start Date [...] 1 Tablet daily . 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 ICD-10 update of inactive term documented as of this encounter (statuses as of 07/17/2023) Immunizations Name Administration Dates Next Due TDAP (age 10 and older)(Boostrix) 07/17/2023,01/2012 documented as of this encounter Social History Tobacco Use Types Packs/Day Years Used Date Smoking Tobacco: Former Cigarettes 3 7 - 1989 Smokeless Tobacco: Never Tobacco Cessation:Counseling Given: Not Answered Alcohol Use Standard Drinks/Week Comments Not Currently [...] on file documented as of this encounter Last Filed Vital Signs Vital Sign Reading Time Taken Comments Blood Pressure 138/60 07/17/2023 6:54 AM EDT Pulse 60 07/17/2023 6:54 AM EDT Temperature 36.4 C (97.6 F) 07/17/2023 6:54 AM ED T Respiratory Rate 18 07/17/2023 6:54 AM EDT Oxygen Saturation - - Inhaled Oxygen Concentration - - Weight 85.2 kg (187 lb 12.8 oz) 07/17/2023 6:54 AM EDT Height 172.7 cm (5' 8") 07/17/2023 6:54 AM EDT Body Mass Index 28.55 07/17/2023 6:54 AM EDT documented in this encounter Patient Instructions * Patient Instructions* Meka Meza LPN - 07/17/2023 7:02 AM EDT ~~PATIENT INSTRUCTIONS FOR TDAP VACCINE~~ Possible side effects of TDAP vaccine, (tetanus shot), are usually mild and can include: 1. Soreness or redness at injection site 2. Low grade fever 3. Body aches You may use a fever / pain reducing medication as needed for these symptoms. LET YOUR DOCTOR KNOW IMMEDIATELY IF YOU HAVE DIFFICULTY BREATHING OR SWALLOWING, EXPERIENCE ITCHINGOF FEET OR HANDS, HAVE SWELLING OF EYES, FACE OR INSIDE OF NOSE. documented in this encounter Progress Notes * Joyce Curry DO - 07/17/2023 7:19 AM EDT Subjective Magen Castillo is a 57 year old male. Chief Complaint Patient presents with Routine Exam Immunizations HPI: 57-year-old male here today for routine visit Chart reviewed Overall patient is doing well He follows with Dr. Alanis his resident physician on a regular basis and will be seeing her again today Patient has a ulceration on both his right and his left foot, unfortunately patient fractured his right ankle or foot back in February and developed some additional ulcerations at that point in time He does have a diagnosis of type 1 diabetes, follows with Endocrinology on a regular basis Overall his sugars are very well controlled, most recent A1c in April was 6.3, he does have an appointment with Endocrinology on August 25 He does follow with his underwriter on a regular basis as well the retinal vitreous consultantsdue to his retinopathy, has had laser treatments done He has a history of vitreous hemorrhage as well as bilateral cataracts Overall he really has no major complaints He needs forms completed for his diabetic shoes He is agreeable to update his Tdap today PMH: Patient Active Problem List Diagnosis Code Type 1 diabetes mellitus with hemoglobin A1c goal of less than 7.0% ([facility]) E10.9 Mild nonproliferative diabetic retinopathy ([facility]) E11.3299 Vitamin D deficiency E55.9 Acquired absence of other left toe(s) ([facility]) Z89.422 Non-pressure chronic ulcer of other part of left foot limited to breakdown of skin ([facility]) L97.521 Type 1 diabetes mellitus with diabetic polyneuropathy ([facility]) E10.42 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 Potassium Gluconate 595 (99 K) MG Oral Tablet Take by mouth 1 Tablet daily . Saw [place] Complex Ex St Oral Capsule Take by [...] GLUCOSE ABOVE 150, MAX DAILY 30 UNITS No current facility-administered medications for this visit. Past Medical History: Diagnosis Date Diabetes ([facility]) Past Surgical History: Procedure Laterality Date PALATE/UVULA SURGERY NEC W[place] AMPUTATION TOE METATARSOPHALANGEAL JOINT Bilateral great toe and second toe WV APPENDECTOMY W[place] CHOLECYSTECTOMY [place] HEMIARTHROPLASTY HIP PARTIAL Left Review of patient's allergies indicates: Allergen Reactions Morphine Family History Problem Relation Age of Onset No Known Problems Mother [...] Specified) Social History Socioeconomic History Marital status: Spouse name: Not on file Number of children: Not on file Years of education: Not on file Highest education level: Not on file Occupational History Not on file Tobacco Use Smoking status: Former Current packs/day: 0.00 Types: Cigarettes Start date: 1986 Quit date: 1989 Years since quittin.2 Smokeless tobacco: Never Vaping Use Vaping Use: Never used Substance and Sexual Activity Alcohol use: Not Currently Drug use: Not Currently Sexual activity: Not on file Other Topics Concern Not on file Social History Narrative Not on file Social Determinants of Health Financial Resource Strain: Not on file Food Insecurity: No Food Insecurity (07/17/2023) Hunger Vital Sign Worried About Running Out of Food in the Last Year: Never true Ran Out of Food in the Last Year: Never true Transportation Needs: Not on file Physical Activity: Not on file Stress: Not on file Social Connections: Not on file Intimate Partner Violence: Not on file Housing Stability: Not on file Objective BP 138/60 | Pulse 60 | Temp 36.4 C (97.6 F) | Resp 18 | Ht 1.727 m (5' 8") | Wt 85.2 kg (187 lb12.8 oz) | BMI 28.55 kg/m | BSA 2.02 m Physical Exam Vitals and nursing note reviewed. Constitutional: General: He is not in acute distress. Appearance: Normal appearance. He is well-developed. He is not ill-appearing or diaphoretic. HENT: Head: Normocephalic and atraumatic. Right Ear: External ear normal. Left Ear: External ear normal. Eyes: General: No scleral icterus. Right eye: No discharge. Left eye: No discharge. Neck: Thyroid: No thyromegaly. Cardiovascular: Rate and Rhythm: Normal rate and regular rhythm. Heart sounds: Normal heart sounds. No murmur heard. Pulmonary: Effort: Pulmonary effort is normal. No respiratory distress. Breath sounds: Normal breath sounds. No wheezing, rhonchi or rales. Abdominal: General: Bowel sounds are normal. There is no distension. Palpations: Abdomen is soft. Tenderness: There is no abdominal tenderness. Musculoskeletal: General: No deformity. Cervical back: Neck supple. Right lower leg: No edema. Left lower leg: No edema. Lymphadenopathy: Cervical: No cervical adenopathy. Skin: General: Skin is warm and dry. Neurological: General: No focal deficit present. Mental Status: He is alert and oriented to person, place, and time. Gait: Gait normal. Psychiatric: Mood and Affect: Mood normal. Behavior: Behavior normal. Thought Content: Thought content normal. Judgment: Judgment normal. 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, right eye (HCC) Type 1 diabetes mellitus with diabetic polyneuropathy (HCC) 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, left eye (HCC) Acquired absence of other left toe(s) ([facility]) Vitamin D deficiency Need for pultivzelv-raymmcd-djetnifdo (Tdap) vaccine - TDAP (AGE 10 AND OLDER)(BOOSTRIX) No major changes at this point in time Patient is continuing to follow-up with Endocrinology and podiatry for his diabetes and foot care Patient qualifies for diabetic shoes, this is medically necessary for the care of his feet He continues to follow with Ophthalmology on a regular basis His colonoscopy is up-to-date We updated his Tdap today Discussed pneumonia and shingles vaccines Follow-up in 1 year or earlier as needed Follow-up: Return in about 1 year (around 07/16/2024). | Check-out note: Need notes from Dr Alanis Podiatry regarding foot exam Need records from endocrinology nona talbot? Joyce Curry DO * Meka Meza LPN - 07/17/2023 7:01 AM EDT Immunization Administration Documentation Time Out Procedure Performed: Yes Patient Identified (Ask Name/Date of ): Yes Does the patient have a fever greater than 101 degrees today? No Patient allergic to latex? No VFC Stock: No Immunization(s) verified: Yes, Immunization Name: Tdap (Boostrix), VIS Sheet(s) given: Yes Injection(s) verified: , Injection Name: Boostirx Verified Side and Site: Yes Verified Shot(s) with Parent(s)/Patient: Yes documented in this encounter Nursing Notes * Meka Meza LPN - 07/17/2023 7:02 AM EDT Pt. Is seeing Transportation Planning Technician for foot exam. Also sees Dr. Eastman for diabetic eye exams. documented in this encounter Plan of Treatment Upcoming Encounters Date Type Department Care Team (Late st Contact Info) Description 07/22/2024 7:40 AM EDT Office Visit Family [facility] [address] [place] [place] [address] Joyce Curry DO [address] [place] [address] Health Maintenance Due Date [...] Screening 07/16/2024 07/17/2023 Lipid Panel 08/26/2027 08/25/2022, 09/07/2012, 12/20/2010, Additional history exists Colonoscopy 02/20/2031 02/20/2021 [...] as of this encounter Visit Diagnoses Diagnosis Type 1 diabetes mellitus with hemoglobin A1c goal of less than 7.0% (HCC)- Primary 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, right eye (HCC) Type 1 diabetes mellitus with diabetic polyneuropathy (HCC) Type I (juvenile type) diabetes mellitus with neurological manifestations, not stated as uncontrolled 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, left eye (HCC) Non-pressure chronic ulcer of other part of left foot limited to breakdown of skin (HCC) Acquired absence of other left toe(s) (HCC) Vitamin D deficiency Unspecified vitamin D deficiency Need for pejgekbove-yvuomfr-wkfxnetpv (Tdap) vaccine Need for prophylactic vaccination with combined fydynapngf-tsishza-ywtbgazqx (DTP) vaccine documented in this encounter Care Teams Aesthetician Relationship Specialty Start Date End Date Joyce Curry DO [address] [facility] [place] [address] PCP - General Family Medicine 07/11/22 documented as of this encounter
[2023-12-02] MEDS ORDERED: GLUCOSE 40% GEL 15 GM TUBE PO PRN (01:14)
[2023-12-02] MEDS ORDERED: GLUCAGON FOR INJ 1 MG VIAL SQ PRN (01:14)
[2023-12-02] MEDS ORDERED: POLYETHYLENE (MIRALAX) 17 GM PACK PO PRN (01:14)
[2023-12-02] MEDS ORDERED: GLUCOSE 10 TAB/TUBE PO PRN (01:14)
[2023-12-02] MEDS ORDERED: ONDANSETRON INJ 2 MG/ML 2 ML VIAL IV PRN (01:14)
[2023-12-02] MEDS ORDERED: NITROGLYCERIN SL 0.4 MG/TAB TAB SL PRN (01:14)
[2023-12-02] MEDS ORDERED: CARBOHYDRATES FOR HYPOGLYCEMIA PO PRN (01:14)
[2023-12-02] MEDS ORDERED: DEXTROSE 50% 50 ML SYRINGE IV PRN (01:14)
--- OUTSIDE RECORDS SUMMARY | 2023-12-02 01:14 | External Medical Summary | Summary of Care ---
Author Name Unknown Organization [facility] Address [address] [place] [address] Phone [phone] Care Team Providers Care Public Health Technician Name Role Phone Joyce Curry DO Primary Care Provider +1- [phone] Encounter Details Date Type Department Care Team (Late st Contact Info) Description 07/02/2023 Result Scan Unspecified Department <No scans attached> Allergies Active Allergy Reactions Criticality Noted Date Comments Morphine 07/11/2022 documented as of this encounter (statuses as of 07/04/2023) Medications Medication Sig Dispensed Refills Start Date [...] 1 Tablet daily . 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 ICD-10 update of inactive term documented as of this encounter (statuses as of 07/04/2023) Immunizations Name Administration Dates Next Due TDAP [...] Information Value Date Recorded Sex Assigned at Not on file Gender Identity Not on file Sexual Orientation Not on file Job Start Date Occupation Industry Not on file Not on file Not on file documented as of this encounter Plan of Treatment Upcoming Encounters Date Type Department Care Team (Late st Contact Info) Description 07/17/2023 7:00 AM EDT Office Visit Family Practice [address] [place] [address] Joyce Curry DO [address] [place] [address] Health Maintenance Due Date Last Done Comments Pneumococcal Vaccine: Pediatrics (0 to 5 Years) and At-Risk Patients (6 to 64 Years) (1 of 2 - PCV) 12/30/1973 Depression Screening 1979 HIV Screening 12/30/1982 Hepatitis C Screening 12/30/1985 Hepatitis B (1 of 3 - 19+ 3-dose series) 12/30/1986 Cologuard 12/30/2012 Fecal Occult Blood Test 12/30/2012 Sigmoidoscopy 12/30/2012 Diabetic Foot Exam 12/17/2013 12/17/2012, 12/19/2011 Zoster Vaccines (1 of 2) 12/30/2017 DTaP,Tdap,and Td Vaccines (2 - Td or Tdap) 10/22/2021 10/23/2011 COVID-19 Vaccine (1 - season) 2022 Influenza Vaccine (FLU shot) (#1) 2022 Albumin/Creatinine Ratio 08/26/2023 023, 08/09/2021, 12/17/2012, Additional history exists GFR 08/26/2023 08/25/2022, 07/15, 08/09/2021, Additional history exists HbA1c 11/08/2023 05/10/2023, 12/15, 08/25/2022, Additional history exists Diabetic Eye Exam 12/29/2023 12/28/2022, , 11/05/2022, Additional history exists Lipid Panel 08/26/2027 08/25/2022, 09/0 07/2012, 12/20/2010, Additional history exists Colonoscopy 02/20/2031 02/20/2021 Colorectal Cancer Screening 02/20/2031 GARDASIL-HPV IMMUNIZATION SERIES Aged Out No longer eligible based on patient's age to complete this topic MENINGOCOCCAL (MENACTRA/MENVEO) Aged Out No longer eligible based on patient's age to complete this topic documented as of this encounter Medical Devices Not on filedocumented as of this encounter Procedures Procedure Name Priority Date/Time Associated Diagnosis Comments RADIOLOGY SCANNED RESULT 07/02/2023 documented in this encounter Results * RADIOLOGY SCANNED RESULT (07/02/2023) 07/02/2023 No Physician Data Unknown DIAGNOSTIC RAD IOLOGY SERVICES documented in this encounter Care Teams Public Health Technician Relationship Specialty Start Date End Date Joyce Curry DO [address] [facility] [place] [id number] PCP - General Family Medicine 07/11/22 documented as of this encounter
--- OUTSIDE RECORDS SUMMARY | 2023-12-02 01:14 | External Medical Summary | Summary of Care ---
Author Name Unknown Organization [facility] Address [address] [place] [address] Phone [phone] Care Team Providers Care Aircraft Electrical Systems Specialist Name Role Phone Joyce Curry DO Primary Care Provider [phone] Reason for Visit * Reason Onset Date Comments Routine Exam Immunizations 07/17/2023 Encounter Details Date Type Department Care Team (Latest Contact Info) Description 07/17/2023 7:00 AM EDT Office Visit [facility] [address] [place] [address] Joyce Curry DO [address] [place] [address] Type 1 diabetes mellitus with hemoglobin A1c goal of less than 7.0% ([facility])*; 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, right eye (HCC); Type 1 diabetes mellitus with diabetic polyneuropathy ([facility]); 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, left eye ([facility]); Non-pressure chronic ulcer of other part of left foot limited to breakdown of skin ([facility]); Acquired absence of other left toe(s) ([facility]); Vitamin D deficiency; Need for ungegitwjo-iqxsnyh-qviy ussis (Tdap) vaccine Allergies Active Allergy Reactions [...] 1 Tablet daily . 0 Active Saw [place] Complex Ex St Oral Capsule Take by [...] well He follows with Dr. Alanis his third cook on a regular basis and will be [...] August 25 He does follow with his mobile heavy equipment operator on a regular basis as well the [...] hemoglobin A1c goal of less than 7.0% ([facility]) E10.9 Mild nonproliferative diabetic retinopathy ([facility]) E11.3299 Vitamin D deficiency E55.9 Acquired absence of other left toe(s) ([facility]) Z89.422 Non-pressure chronic ulcer of other part of left foot limited to breakdown of skin ([facility]) L97.521 Type 1 diabetes mellitus with diabetic polyneuropathy ([facility]) E10.42 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 Saw [place] Complex Ex St Oral Capsule Take by [...] visit. Past Medical History: Diagnosis Date Diabetes ([facility]) Past Surgical History: Procedure Laterality Date PALATE/UVULA SURGERY NEC [place] AMPUTATION TOE METATARSOPHALANGEAL JOINT Bilateral great toe and second toe OH APPENDECTOMY OH CHOLECYSTECTOMY OH HEMIARTHROPLASTY HIP PARTIAL Left Review of patient's [...] (HCC) Acquired absence of other left toe(s) ([facility]) Vitamin D deficiency Need for dhtyjdvjkz-yalzfqp-bivfbyrja (Tdap) vaccine - TDAP (AGE 12 AND [...] 07/17/2023 7:02 AM EDT Pt. Is seeing Fruit Farmworker for foot exam. Also sees Dr. Eastman for diabetic eye exams. documented in this encounter Plan of Treatment Upcoming Encounters Date Type Department Care Team (Late st Contact Info) Description 07/22/2024 7:40 AM EDT Office Visit [facility] [address] [place] [address] Joyce Curry DO [address] [place] [address] Health Maintenance Due Date [...] deficiency Unspecified vitamin D deficiency Need for ledmdgotlo-ibfdggf-meoqphfvl (Tdap) vaccine Need for prophylactic vaccination with combined gmokgyqerm-hezdfwe-cuzpdrnvu (DTP) vaccine documented in this encounter Care Teams Aircraft Electrical Systems Specialist Relationship Specialty Start Date End Date Joyce Curry DO [address] [place] [address] PCP - General Family Medicine 07/11/22 documented as of this encounter
--- OUTSIDE RECORDS SUMMARY | 2023-12-02 01:14 | External Medical Summary | Summary of Care ---
Author Name Unknown Organization [facility] Address [address] [place] [address] Phone [phone] Care Team Providers Care Industrial Spraypainter Name Role Phone Joyce Curry DO Primary Care Provider [phone]- [phone] Reason for Visit * Reason Onset Date Comments Routine Exam Immunizations 07/17/2023 Encounter Details Date Type Department Care Team (Latest Contact Info) Description 07/17/2023 7:00 AM EDT Office Visit [facility] [address] [place] [address] Joyce Curry DO [address] [place] [address] Type 1 diabetes mellitus with hemoglobin A1c goal of less than 7.0% ([facility])*; 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 0 Active Saw [place] Complex Ex St Oral Capsule Take by [...] well He follows with Dr. 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 Saw [place] Complex Ex St Oral Capsule Take by [...] visit. Past Medical History: Diagnosis Date Diabetes ([facility]) Past Surgical History: Procedure Laterality Date PALATE/UVULA SURGERY NEC [place] AMPUTATION TOE METATARSOPHALANGEAL JOINT Bilateral great toe and second toe DC APPENDECTOMY DC CHOLECYSTECTOMY DC HEMIARTHROPLASTY HIP PARTIAL Left Review of patient's [...] (HCC) Acquired absence of other left toe(s) ([facility]) Vitamin D deficiency Need for hltsszxouy-hxevumf-ivmppuwcy (Tdap) vaccine - TDAP (AGE 12 AND [...] 07/17/2023 7:02 AM EDT Pt. Is seeing Geophysical Data Technician for foot exam. Also sees Dr. Eastman for diabetic eye exams. documented in this encounter Plan of Treatment Upcoming Encounters Date Type Department Care Team (Late st Contact Info) Description 07/22/2024 7:40 AM EDT [facility] [address] [place] [address] Joyce Curry DO [address] [place] [address] Health Maintenance Due Date [...] deficiency Unspecified vitamin D deficiency Need for tejpsewiwi-ccvgumq-vpnpakkjo (Tdap) vaccine Need for prophylactic vaccination with combined txiavuqyqn-mbpptti-qfaiprhkg (DTP) vaccine documented in this encounter Care Teams Industrial Spraypainter Relationship Specialty Start Date End Date Joyce Curry DO [address] [facility] [place] [address] PCP - General Family Medicine 07/11/22 documented as of this encounter
[2023-12-02] MEDS: INSULIN ASPART PER UNIT CHARGE SC SCH ×2 (02:07→19:00)
[2023-12-02] MEDS: DAPTOmycin 275 MG in SYRINGE 0 ML IV SCH (02:08)
[2023-12-02] MEDS: SODIUM CHLORIDE 0.9% 1,000 ML IV SCH (02:11)
[2023-12-02] MEDS: PIPERACILLIN/TAZOBACTAM 4.5 GM/100 ML BAG IV ONE (02:11)
[2023-12-02 06:36] LABS: Basophils # (auto) 0.02 K/uL (0.00-0.20); Basophils % (auto) 0.2 %; Eosinophils # (auto) 0.04 K/uL (0.00-0.50); Eosinophils % (auto) 0.3 %; Hematocrit (blood only) 33.9 % (42.0-52.0); Hemoglobin 11.3 g/dl (14.0-18.0); Immature Granulocytes % (auto) 0.8 %; Lymphocytes # (auto) 0.95 K/uL (1.20-3.40); Lymphocytes % (auto) 7.5 %; Mean Corpuscular Hemoglobin 28.5 pg (25.0-34.0); Mean Corpuscular Hgb Conc 33.3 g/dL (32.0-36.0); Mean Corpuscular Volume 85.6 fL (80.0-100.0); Mean Platelet Volume 10.4 fL (9.4-12.4); Monocytes # (auto) 0.96 K/uL (0.11-0.59); Monocytes % (auto) 7.5 %; Neutrophils # (auto) 10.67 K/uL (1.40-6.50); Neutrophils % (auto) 83.7 %; Platelet Count 232 K/uL (130-400); RDW Coefficient of Variation 12.3 % (11.5-14.5); RDW Standard Deviation 38.4 fL (36.4-46.3); Red Blood Count 3.96 M/uL (4.70-6.10); White Blood Count 12.74 K/ul (4.8-10.8)
[2023-12-02 06:51] LABS: Albumin Level 3.4 gm/dl (3.4-5.0); BUN Creatinine Ratio 27.8 (10-20); Bilirubin Direct 1.1 mg/dl (0-0.2); Bilirubin,Total 2.5 mg/dl (0.2-1.0); Calcium 8.9 mg/dl (8.6-10.3); Creatinine Clr Calc Pharmacy 110.6 ml/min; Est GFR (African American) 117.2 ml/min; Est GFR (Non-African American) 101.1 ml/min; Magnesium 1.8 mg/dl (1.7-2.4); Potassium 3.5 mmol/L (3.5-5.1)
--- NOTE | 2023-12-02 07:09 | XRay Report ---
XR foot LT min 3V routine CLINICAL HISTORY: Ulcer of foot, Diabetic TECHNIQUE: 3 views of the left foot were obtained. Comparison: None available at the time of this dictation. FINDINGS: Status post amputation of the second and third digits. Degenerative changes are seen throughout the f oot. No focal erosions are seen to suggest osteomyelitis. Soft tissue swelling is seen with suggestio n of ulceration versus subcutaneous gas. IMPRESSION: No radiographic evidence of osteomyelitis. If clinical concern remains, MRI is a more sensitive modal ity. ACT 112: Negative or not required by law. Electronically signed by: Jessee Viveros M.D. 12/02/2023 7:08 AM
[2023-12-02 07:27] LABS: Estimated Average Glucose 143 mg/dl; Hemoglobin A1C 6.6 % (4.5-5.6)
[2023-12-02] MEDS: PIPERACILLIN/TAZOBACTAM 4.5 GM/100 ML BAG IV SCH (08:58)
[2023-12-02] MEDS: LANTUS PER UNIT CHARGE SQ SCH (09:55)
--- NOTE | 2023-12-02 13:45 | Hospitalist Progress Note ---
Date of Service December 02, 2023 Assessment & Plan (1) Sepsis: Plan: 57-year-old male with past medical history significant for type 1 diabetes, mild nonproliferative diabetic retinopathy, vitamin D deficiency, history of amputation of bilateral metatarsophalangeal joint comes because of fevers chills and dark urine going on since last Saturday and also callus in his left dorsal aspect of foot draining since last . In the ER urine came back positive . Patient had episode of mild burning micturition. Denies any blood in the urine. States he is following with [facility] his callus. He has special boots. Ambulating okay. He had episode of vomiting today. After that his appetite is improved. Feeling weak and tired. Denies any headache or dizziness. Vision is okay currently. No earache. Had runny nose for couple of days but currently resolved. No sore throat. Currently no cough. No chest pain or shortness of breath. Last couple of days slept on recliner and has some mild flank discomfort. No abdominal pain. Normal bowel movements. Currently attending [facility]. Possible early sepsis-presented with tachycardia and leukocytosis Having fevers at home per patient. Afebrile since admit Has evidence of a UTI Cellulitis and infected callus of left foot . Foot xray reviewed and no evidence of osteomyelitis Continue Zosyn and Daptomycin for now IV fluids given Cultures are pending Advance diet as tolerated Podiatry consult pending. Diabetes type 1 Continue basal insulin and SSI Will follow blood sugars Anemia Hemoglobin of 11.7-->11.3 today Recent outpatient hemoglobin 14.4 Anemia W/U Elevated bilirubin Bilirubin 1.9--> 2.5 today Alk phos 114-->112 today Possible from sepsis Follow repeat labs. Check US DVT prophylaxis SCDs for now Disposition Med/telemetry Full code. A total of 52 minutes spent in documentation, review and coordination of care for Mr. Castillo Admission and Anticipated Discharge Date Admission Date: December 01, 2023 Subjective Chart, 24-hour vital signs and data reviewed Patient seen at bedside Patient feels improved. He has less nausea. No emesis. Cultures done of the foot wound. Meds reviewed Current Inpatient Medications Acetaminophen (Acetaminophen 325 Mg Tab) 650 mg PO Q4H PRN PRN Reason: Pain or Fever Stop: 01/01/24 01:13 Dextrose (Dextrose 50% 50 Ml Syringe) 25 - 50 ml IV UD PRN; Protocol PRN Reason: Hypoglycemia Protocol Stop: 01/01/24 01:13 Glucagon (Glucagon For Inj 1 Mg Vial) 1 mg SQ UD PRN; Protocol PRN Reason: Hypoglycemia Protocol Stop: 01/01/24 01:13 Glucose (Glucose 40% Gel 15 Gm Tube) 15 - 30 gm PO UD PRN; Protocol PRN Reason: Hypoglycemia Protocol Stop: 01/01/24 01:13 Glucose (Glucose 10 Tab/Tube) 4 - 8 tab PO UD PRN; Protocol PRN Reason: Hypoglycemia Treatment Stop: 01/01/24 01:13 Daptomycin 275 mg/ Syringe 5.5 mls @ 3.2 mls/min IV Q24H MAGDALENA; Protocol Stop: 12/09/23 01:59 Last Admin: 12/02/23 02:08 Dose: 3.2 mls/min Sodium Chloride (Nss) 1,000 mls @ 100 mls/hr IV .Q10H MAGDALENA Stop: 12/02/23 21:13 Last Admin: 12/02/23 12:22 Dose: 100 mls/hr Piperacillin Sod/Tazobactam Sod (Zosyn) 4.5 gm in 100 mls @ 25 mls/hr IV Q8H MAGDALENA Stop: 12/09/23 07:59 Last Infusion: 12/02/23 12:58 Dose: Infused Insulin Aspart (Insulin Aspart Per Unit Charge) 0 units SC Q6 MAGDALENA Stop: 01/01/24 01:13 Last Admin: 12/02/23 12:57 Dose: 6 units Insulin Glargine (Lantus Per Unit Charge) 7 units SQ DAILY MAGDALENA Stop: 01/01/24 08:59 Last Admin: 12/02/23 09:55 Dose: 7 units Miscellaneous (Carbohydrates For Hypoglycemia ) 15 - 30 gm PO UD PRN PRN Reason: Hypoglycemia Protocol Stop: 01/01/24 01:13 Nitroglycerin (Nitroglycerin Sl 0.4 Mg/Tab Tab) 0.4 mg SL Q5M PRN PRN Reason: Chest Pain Stop: 01/01/24 01:13 Ondansetron HCl (Ondansetron Inj 2 Mg/Ml 2 Ml Vial) 4 mg IV Q6H PRN PRN Reason: Nausea Stop: 01/01/24 01:13 Polyethylene Glycol (Polyethylene (Miralax) 17 Gm Pack) 17 gm PO DAILY PRN PRN Reason: Constipation Stop: 01/01/24 01:13 Review of Systems Review of Systems: Constitutional- feels improved Eyes- no acute visual changes ENT- no sinus drainage; no pharyngitis Pulmonary- no cough, no wheezing, no shortness of breath Cardiac- no chest pain, no palpitations, no orthopnea, no dependent edema GI- no nausea, no vomiting, no diarrhea, no melena, no hematochezia - no dysuria, no hematuria Musculoskeletal- no arthralgias, no myalgias Derm- no rashes, Hematologic- no unusual bruising, no unusual bleeding Lymphatics- no adenopathy Neuro- no headaches, no focal neurologic symptoms Psych- no anxiety, no depression Physical Exam Physical Exam: General- adult male seen at bedside Head- atraumatic Eyes- PERRL, EOMI, anicteric ENT- oropharynx clear Neck- supple, no JVD, no adenopathy, no thyromegaly; carotids +2/2, no bruits appreciated Lungs- clear to auscultation and percussion Heart- regular rhythm; no murmur, no gallop, no rub appreciated Abdomen- normal bowel sounds, soft, nontender, no masses or hepatosplenomegaly Extremities- no pretibial edema, no calf tenderness; peripheral pulses intact Left foot dorsal aspect infected callus seen with mild drainage. S/P amputations of the 1st and second digits of left foot and 1st digit right foot. Neuro- alert, oriented x 3; PERRL, EOMI; Skin- warm & dry Results & Data Results & Data Vital Signs (Past 12 Hours) Vital Signs Temp Pulse Pulse Resp BP Pulse Ox O2 Del Method 12/02/23 11:27 37.0 C 99 H 16 143/71 H 96 Room Air 12/02/23 07:24 37.4 C 101 H 16 150/64 H 95 Room Air 12/02/23 07:24 94 H 12/02/23 04:44 37.7 C H 93 H 20 119/63 96 Room Air 12/02/23 03:08 91 H Diagnostic Findings Laboratory Results WBC 12.74 K/ul (4.8-10.8) H 12/02/23 05:33 RBC 3.96 M/uL (4.70-6.10) L 12/02/23 05:33 Hgb 11.3 g/dl (14.0-18.0) L 12/02/23 05:33 Hct 33.9 % (42.0-52.0) L 12/02/23 05:33 MCV 85.6 fL (80.0-100.0) 12/02/23 05:33 MCH 28.5 pg (25.0-34.0) 12/02/23 05:33 MCHC 33.3 g/dL (32.0-36.0) 12/02/23 05:33 RDW Std Deviation 38.4 fL (36.4-46.3) 12/02/23 05:33 RDW Coeff of Sean 12.3 % (11.5-14.5) 12/02/23 05:33 Plt Count 232 K/uL (130-400) 12/02/23 05:33 MPV 10.4 fL (9.4-12.4) 12/02/23 05:33 Immature Gran % (Auto) 0.8 % 12/02/23 05:33 Neut % (Auto) 83.7 % 12/02/23 05:33 Lymph % (Auto) 7.5 % 12/02/23 05:33 Hart % (Auto) 7.5 % 12/02/23 05:33 Eos % (Auto) 0.3 % 12/02/23 05:33 Baso % (Auto) 0.2 % 12/02/23 05:33 Neut # (Auto) 10.67 K/uL (1.40-6.50) H 12/02/23 05:33 Lymph # (Auto) 0.95 K/uL (1.20-3.40) L 12/02/23 05:33 Hart # (Auto) 0.96 K/uL (0.11-0.59) H 12/02/23 05:33 Eos # (Auto) 0.04 K/uL (0.00-0.50) 12/02/23 05:33 Baso # (Auto) 0.02 K/uL (0.00-0.20) 12/02/23 05:33 Immature Gran # (Auto) 0.10 K/uL (0.01-0.20) 12/02/23 05:33 PT 13.3 Seconds (9.0-12.0) H 12/01/23 19:19 INR 1.2 (0.9-1.1) H 12/01/23 19:19 Sodium 135 mmol/L (136-145) L 12/02/23 05:33 Potassium 3.5 mmol/L (3.5-5.1) 12/02/23 05:33 Chloride 103 mmol/L (98-107) 12/02/23 05:33 Carbon Dioxide 21 mmol/L (21-32) 12/02/23 05:33 Anion Gap 11 (3-11) 12/02/23 05:33 BUN 22 mg/dl (6-23) 12/02/23 05:33 Creatinine 0.79 mg/dl (0.6-1.4) 12/02/23 05:33 Est Cr Clr Drug Dosing 110.6 ml/min 12/02/23 05:33 Est GFR ( Amer) 117.2 ml/min 12/02/23 05:33 Est GFR (Non-Af Amer) 101.1 ml/min 12/02/23 05:33 BUN/Creatinine Ratio 27.8 (10-20) H 12/02/23 05:33 Glucose 245 mg/dl (70-99(Fasting)) H 12/02/23 05:33 POC Glucose 258 mg/dl (70-99) H 12/02/23 12:16 Estimat Average Glucose 143 mg/dl 12/02/23 05:33 Hemoglobin A1c 6.6 % (4.5-5.6) H 12/02/23 05:33 Calcium 8.9 mg/dl (8.6-10.3) 12/02/23 05:33 Magnesium 1.8 mg/dl (1.7-2.4) 12/02/23 05:33 Total Bilirubin 2.5 mg/dl (0.2-1.0) H 12/02/23 05:33 Direct Bilirubin 1.1 mg/dl (0-0.2) H 12/02/23 05:33 AST 19 U/L (13-39) 12/02/23 05:33 ALT 20 U/L (7-52) 12/02/23 05:33 Alkaline Phosphatase 112 U/L (34-104) H 12/02/23 05:33 Total Protein 6.0 gm/dl (6.0-8.3) 12/02/23 05:33 Albumin 3.4 gm/dl (3.4-5.0) 12/02/23 05:33 Globulin 3.0 gm/dl (2.5-4.0) 12/01/23 19:19 Albumin/Globulin Ratio 1.2 (0.9-2) 12/01/23 19:19 Lipase 6 U/L (11-82) L 12/01/23 19:19 Urine Color [place]k 12/01/23 20:49 Urine Appearance Cloudy (Clear) A 12/01/23 20:49 Urine pH 5.5 (4.5-7.5) 12/01/23 20:49 Ur Specific Ola 1.035 (1.000-1.030) H 12/01/23 20:49 Urine Protein 2+ (Negative) H 12/01/23 20:49 Urine Glucose (UA) Negative (Negative) 12/01/23 20:49 Urine Ketones 2+ (Negative) H 12/01/23 20:49 Urine Blood Negative (Negative) 12/01/23 20:49 Urine Nitrite Positive (Negative) A 12/01/23 20:49 Urine Bilirubin 1+ (Negative) H 12/01/23 20:49 Urine Urobilinogen Positive (Negative) H 12/01/23 20:49 Ur Leukocyte Esterase 1+ (Negative) H 12/01/23 20:49 Urine WBC (Auto) 0-5 /hpf (0-5) 12/01/23 20:49 Urine RBC (Auto) 3-5 /hpf (0-2) H 12/01/23 20:49 U Hyaline Cast (Auto) 11-20 /lpf (0-2) H 12/01/23 20:49 U Epithel Cells (Auto) 3-5 /hpf (0-2) H 12/01/23 20:49 Urine Bacteria (Auto) None Seen (None Seen) 12/01/23 20:49 Urine Mucus Present (None Prsent) A 12/01/23 20:49 Adenovirus (PCR) Not Detected (NotDetected) 12/01/23 19:19 B. pertussis DNA (PCR) Not Detected (NotDetected) 12/01/23 19:19 B.parapertussis DNA PCR Not Detected (NotDetected) 12/01/23 19:19 C. pneumoniae DNA (PCR) Not Detected (NotDetected) 12/01/23 19:19 Coronavirus OC43 (PCR) Not Detected (NotDetected) 12/01/23 19:19 Coronavirus HKU1 (PCR) Not Detected (NotDetected) 12/01/23 19:19 Coronavirus 229E (PCR) Not Detected (NotDetected) 12/01/23 19:19 SARS-CoV-2 (PCR) Not Detected (NotDetected) 12/01/23 19:19 Coronavirus NL63 (PCR) Not Detected (NotDetected) 12/01/23 19:19 Human Metapneumovir PCR Not Detected (NotDetected) 12/01/23 19:19 Influenza Type A (PCR) Not Detected (NotDetected) 12/01/23 19:19 Influenza Type B (PCR) Not Detected (NotDetected) 12/01/23 19:19 M. pneumoniae (PCR) Not Detected (NotDetected) 12/01/23 19:19 Parainfluenza 1 (PCR) Not Detected (NotDetected) 12/01/23 19:19 Parainfluenza 2 (PCR) Not Detected (NotDetected) 12/01/23 19:19 Parainfluenza 3 (PCR) Not Detected (NotDetected) 12/01/23 19:19 Parainfluenza 4 (PCR) Not Detected (NotDetected) 12/01/23 19:19 RSV (PCR) Not Detected (NotDetected) 12/01/23 19:19 Entero/Rhino (PCR) Not Detected (NotDetected) 12/01/23 19:19 Impressions Foot X-Ray 12/01/23 19:06 XR foot LT min 3V routine CLINICAL HISTORY: Ulcer of foot, Diabetic TECHNIQUE: 3 views of the left foot were obtained. Comparison: None available at the time of this dictation. FINDINGS: Status post amputation of the second and third digits. Degenerative changes are seen throughout the foot. No focal erosions are seen to suggest osteomyelitis. Soft tissue swelling is seen with suggestion of ulceration versus subcutaneous gas. IMPRESSION: No radiographic evidence of osteomyelitis. If clinical concern remains, MRI is a more sensitive modality. ACT 112: Negative or not required by law. Electronically signed by: Jessee Viveros M.D. 12/02/2023 7:08 AM
--- NOTE | 2023-12-02 15:10 | Ultrasound Report ---
ABDOMINAL ULTRASOUND, RIGHT UPPER QUADRANT HISTORY: elevated Bilirubin. COMPARISON: None. FINDINGS: Pancreas: The pancreas demonstrates a normal echotexture. Liver: No hepatic masses or intrahepatic bile duct dilatation. The main portal vein is patent. 18 cm in length. Gallbladder: The gallbladder is surgically absent. CBD: 4 mm. Right kidney: No hydronephrosis. IMPRESSION: 1. No significant abnormality identified within the right upper quadrant. 2. Prior cholecystectomy ACT 112: Negative or not required by law. Electronically signed by: Maurilio Falcon M.D. 12/02/2023 3:08 PM
[2023-12-02] MEDS: ACETAMINOPHEN 325 MG TAB PO PRN (15:56)
[2023-12-02] MEDS ORDERED: Nursing to Pharmacy Communication SCH (17:45)
[2023-12-02 18:20] LABS: A calco-baum cmplx NotReported Not Detected (NotDetected); Bact fragilis Not Reported Not Detected (NotDetected); Blood Culture Id Panel See PCR Comment (NotDetected); C auris Not Reported Not Detected (NotDetected); Calbicans Not Reported Not Detected (NotDetected); Candida glabrata Not Reported Not Detected (NotDetected); Candida krusei Not Reported Not Detected (NotDetected); Cneoformans/gatti Not Reported Not Detected (NotDetected); Cparapsilosis Not Reported Not Detected (NotDetected); E cloacae compx Not Reported Not Detected (NotDetected); Efaecalis Not Reported Not Detected (NotDetected); Efaecium Not Reported Not Detected (NotDetected); Enterobacterales Not Reported Not Detected (NotDetected); Escherichia coli Not Reported Not Detected (NotDetected); H influenzae Not Reported Not Detected (NotDetected); K aerogenes Not Reported Not Detected (NotDetected); Koxytoca Not Reported Not Detected (NotDetected); Kpneumoniae grp Not Reported Not Detected (NotDetected); Lmonocyt Not Reported Not Detected (NotDetected); N meningitidis Not Reported Not Detected (NotDetected); P aeruginosa Not Reported Not Detected (NotDetected); Proteus spp Not Reported Not Detected (NotDetected); Salmonella spp Not Reported Not Detected (NotDetected); Staph lugdunensis Not Reported Not Detected (NotDetected); Staph spp. Not Reported DETECTED (NotDetected); Staphaureus Not Reported DETECTED (NotDetected); Staphepi Not Reported Not Detected (NotDetected); Staphylococcus spp. DETECTED (NotDetected); Stenmaltophilia Not Reported Not Detected (NotDetected); Strep agal(GrpB) Not Reported Not Detected (NotDetected); Strep pneum Not Reported Not Detected (NotDetected); Strep pyog (GrpA) Not Reported Not Detected (NotDetected); Strep spp Not Reported Not Detected (NotDetected); mecAC+MREJ Resistant Gene MRSA Not Detected (NotDetected)
--- NOTE | 2023-12-02 22:31 | Podiatry Consultation ---
Date of Consultation December 02, 2023 Assessment & Plan (1) Cellulitis of left foot: (2) Foot ulcer due to secondary DM: (3) Ulcer of left foot with fat layer exposed: (4) History of amputation of great toe of both feet: Plan Patient was examined and evaluated. We discussed future treatment options for this left is scheduled to see his local foot and ankle surgeon on Saturday already. This ulceration is stable and likely more chronic in nature than the patient realizes. It certainly can develop after the hallux ulceration as a result of increased pressure underlying the first metatarsal head. For the suspected cellulitis, he would benefit from oral antibiotics for 2 weeks once he is discharged. This would be empiric antibiotic therapy and could likely overlap with his UTI antibiotics. Currently, the antibiotics he is maintaining IV would be Sufficient for treating this lower extremity infection as well. Until then, he should continue with wound care with an Optifoam bordered gauze And bacitracin Ointment or Aquacel Ag if the wound drains more significantly. Gerber singh will keep an eye on him for the next couple days but he is likely able to be discharged home from a foot and ankle perspective and follow up with his normal provider as scheduled. History of Present Illness Reason for Consultation: Left foot ulcer/cellulitis Attending Physician: Emerson Torres DO History of Present Illness Patient patient seen at bedside. He states that over the last week he has noticed increasing ulceration with some swelling and drainage to his left foot. He has a history of foot ulceration leading to amputation of his great toes. He sees a auto camp attendant in [place] on a regular basis for treatment of his calluses who has also performed as ulceration care and amputations in the past. Most recently, he was at a festival and on [place] feet which she attributes this ulceration to. He states that his foot is mildly swollen but it is about near his baseline. Instead, he states he was admitted for treatment of a urinary tract infection which she has also developed on a semiregular basis. He denies any foot concerns and really denies any signs of infection to the foot. Instead, he is more concerned about his UTI. Overall, he believes his foot is doing relatively well. Allergies Allergy/AdvReac Type Severity Reaction Status Date / Time No Known Allergies Allergy Verified 12/01/23 19:15 Home Medications Medication Instructions Recorded Confirmed Type insulin aspart U-100 100 unit/mL 1 sliding scale dose subcut UD 12/01/23 12/01/23 History subcutaneous solution insulin glargine 100 unit/mL 15 unit subcut DAILY 12/01/23 12/01/23 History subcutaneous solution (Lantus U-100 Insulin) Patient History Social History Smoking Status: Former smoker Hx Alcohol Use: Yes Alcohol type: beer Hx Substance Use: No Preferred Language: Ukrainian Communication Ability: Effective Dresser Tender Required: No Beliefs That Will Affect Care: None Current Living Situation: Spouse Other Information That Helps Us Care for You: No Feels Safe at Home: Yes Safety Concerns: Feels Safe At This Time Assistive Devices: Walker Assistive Devices Comment: bilateral 1st and second toe amputation Review of Systems Review of Systems: All systems reviewed & are unremarkable except as noted in HPI & below Constitutional: + fever and + chills; no fatigue Eyes: no problem reported Ear, Nose, Mouth, Throat: no problem reported Respiratory: no problem reported Cardiovascular: + edema; no problem reported Gastrointestinal: no nausea, no vomiting and no problem reported Genitourinary: + as per Subjective / HPI Musculoskeletal: no problem reported Integumentary: + skin ulcer, + wounds and + erythema Neurologic: + loss of sensation, + numbness and + pa resthesia; no generalized weakness Psychiatric: no problem reported Physical Exam Physical Exam: Lower extremity focused exam: DP/PT pulses nonpalpable, likely secondary to bilateral lower extremity edema. CFT is brisk to the digits. Bilateral hallux amputations are appreciated. There is a well-circumscribed neuropathic ulcer ation noted sub-left first metatarsal head. Upon sharp debridement, no underlying bone involvement is suspected. Plain film imaging suggests no acute bony involvement though there are significant arthritic changes throughout the midfoot and forefoot, consistent with arthritis and even Charcot neuroarthropathy of the midfoot. No proximal ulcerations or pre-ulcerative lesions are appreciated. Constitutional: WD/WN, vitals as above + ill appearing Eyes: PERRL, conjunctivae normal, anicteric sclerae ENMT: external ear and nose normal, oropharynx normal Neck: trachea midline, no thyromegaly normal visual inspection Respiratory: normal respiratory effort; no respiratory distress Cardiovascular: Rate/Rhythm: regular rate and regular rhythm Chest (Breasts): Chest: normal inspection of chest Gastrointestinal (Abdomen): Inspection/Auscultation: abdomen normal to inspection Percussion/Palpation: + abdomen tender and abdomen soft Musculoskeletal: no cyanosis or clubbing, extremities motor strength 5/5 Head/Neck/Chest: normocephalic and head atraumatic Extremities: extremities normal to inspection and + foot abnormality (hallux amputation) Bilateral Ankle: + skin erythema Skin: + ulcer, + wound, + erythema and + hair thinning; no fluctulance Neurologic: awake; no focal motor deficits Psychiatric: A+Ox3, euthymic affect Results & Data Vital Signs (Past 12 Hours) Vital Signs Temp Pulse Pulse Resp BP Pulse Ox O2 Del Method 12/02/23 18:41 37.7 C H 103 H 20 146/70 H 94 Room Air 12/02/23 16:29 36.7 C 12/02/23 15:41 103 H 12/02/23 15:31 38.1 C H 106 H 16 160/77 H 96 Room Air 12/02/23 11:27 37.0 C 99 H 16 143/71 H 96 Room Air
[2023-12-03] MEDS: SODIUM CHLORIDE 0.9% 1,000 ML IV SCH (03:33)
[2023-12-03] MEDS: KETOROLAC TROMETHAMINE 15 MG/ML VIAL IV ONE (03:33)
[2023-12-03] MEDS: DAPTOmycin 125 MG in SYRINGE 0 ML IV ONE (03:33)
[2023-12-03 03:41] LABS: Hematocrit (blood only) 34.3 % (42.0-52.0); Hemoglobin 11.5 g/dl (14.0-18.0); Mean Corpuscular Hemoglobin 27.5 pg (25.0-34.0); Mean Corpuscular Hgb Conc 33.5 g/dL (32.0-36.0); Mean Corpuscular Volume 82.1 fL (80.0-100.0); Mean Platelet Volume 10.1 fL (9.4-12.4); Platelet Count 303 K/uL (130-400); RDW Coefficient of Variation 12.3 % (11.5-14.5); RDW Standard Deviation 37.4 fL (36.4-46.3); Red Blood Count 4.18 M/uL (4.70-6.10); White Blood Count 10.23 K/ul (4.8-10.8)
[2023-12-03 04:09] LABS: Albumin Level 3.5 gm/dl (3.4-5.0); BUN Creatinine Ratio 22.4 (10-20); Bilirubin Direct 1.1 mg/dl (0-0.2); Bilirubin,Total 2.2 mg/dl (0.2-1.0); Calcium 8.9 mg/dl (8.6-10.3); Est GFR (Non-African American) 102.7 ml/min; Magnesium 1.6 mg/dl (1.7-2.4); Potassium 3.6 mmol/L (3.5-5.1); Total Protein 6.6 gm/dl (6.0-8.3)
[2023-12-03] MEDS: INSULIN HUMAN REGULAR PER UNIT 5 UNITS in SYRINGE 4.95 ML IV ONE (04:54)
[2023-12-03] MEDS: MAGNESIUM SULFATE / D5W 1 GM/100 ML BAG IV SCH (04:55)
--- NOTE | 2023-12-03 07:22 | XRay Report ---
XR chest 1V portable HISTORY: cough COMPARISON: None. FINDINGS: No pneumothorax. No pleural effusions. The heart is mildly enlarged. Mild diffuse interstit ial thickening most pronounced within the right lung and lung bases. This may represent mild congesti ve change on the background of chronic interstitial change. An interstitial pneumonitis is considered less likely but not entirely excluded. No focal lung consolidations to suggest a pneumonia. IMPRESSION: Mild diffuse interstitial thickening most pronounced within the right lung and lung bases. This may r epresent mild congestive change on the background of chronic interstitial change. An interstitial pne umonitis is considered less likely but not entirely excluded. ACT 112: Negative or not required by law. Electronically signed by: Maurilio Falcon M.D. 12/03/2023 7:21 AM
[2023-12-03] MEDS ORDERED: guaiFENesin SUGAR FREE 100 MG/5 ML UDC PO PRN (08:56)
[2023-12-03] MEDS: LANTUS PER UNIT CHARGE SQ SCH (09:06)
[2023-12-03] MEDS: ALBUTEROL HFA 8 GM INHALER INH SCH (10:17)
[2023-12-03] MEDS ORDERED: ALBUTEROL HFA 8 GM INHALER INH PRN (10:28)
[2023-12-03] MEDS: FUROSEMIDE 40 MG/4 ML VIAL IV ONE (10:56)
--- NOTE | 2023-12-03 11:42 | Hospitalist Progress Note ---
Date of Service December 03, 2023 Assessment & Plan (1) Sepsis: Plan: 57-year-old male with past medical history significant for type 1 diabetes, mild nonproliferative diabetic retinopathy, vitamin D deficiency, history of amputation of bilateral metatarsophalangeal joint admitted for fevers chills and dark urine going on since last week and also callus in his left dorsal aspect of foot draining since last week. Sepsis-presented with tachycardia and leukocytosis and now bacteremia Having fevers at home per patient. Febrile overnight Has evidence of a UTI Cellulitis and infected callus of left foot . Foot xray reviewed and no evidence of osteomyelitis Continue Zosyn and Daptomycin for now IV fluids discontinued. There is evidence of fluid overload. Give lasix 40 mg IV x 1 Final and repeat cultures are pending CCD Podiatry consult appreciated. Diabetes type 1 Continue basal insulin and SSI Will follow blood sugars Anemia Hemoglobin of 11.7-->11.3-->11.5 today Recent outpatient hemoglobin 14.4 Anemia W/U--> iron deficiency. Will give iron. Will need Gi W/U Elevated bilirubin Bilirubin 1.9--> 2.5--> 2.2 today Alk phos 114-->112-->140 today Possible from sepsis Follow repeat labs. US reviewed and not significant DVT prophylaxis SCDs for now Disposition Med/telemetry Full code. A total of 53 minutes spent in documentation, review and coordination of care for Mr. Castillo Admission and Anticipated Discharge Date Admission Date: December 01, 2023 Subjective Chart, data and 24-hour vital signs reviewed Patient seen at bedside with nursing Patient developed fever and chills last night. Blood culture positive for gram-positive cocci Daptomycin dose adjusted Patient feels better this am. He has developed a dry cough. States he gets this quite a bit. He has never been diagnosed with asthma. Chest x-ray was reviewed. There may be some fluid overload Cultures done of the foot wound. Meds reviewed Current Inpatient Medications Acetaminophen (Acetaminophen 325 Mg Tab) 650 mg PO Q4H PRN PRN Reason: Pain or Fever Stop: 01/01/24 01:13 Last Admin: 12/03/23 02:15 Dose: 650 mg Albuterol (Albuterol Hfa 8 Gm Inhaler) 1 puffs INH QID PRN PRN Reason: Shortness Of Breath Or Wheezing Stop: 01/02/24 09:44 Dextrose (Dextrose 50% 50 Ml Syringe) 25 - 50 ml IV UD PRN; Protocol PRN Reason: Hypoglycemia Protocol Stop: 01/01/24 01:13 Glucagon (Glucagon For Inj 1 Mg Vial) 1 mg SQ UD PRN; Protocol PRN Reason: Hypoglycemia Protocol Stop: 01/01/24 01:13 Glucose (Glucose 40% Gel 15 Gm Tube) 15 - 30 gm PO UD PRN; Protocol PRN Reason: Hypoglycemia Protocol Stop: 01/01/24 01:13 Glucose (Glucose 10 Tab/Tube) 4 - 8 tab PO UD PRN; Protocol PRN Reason: Hypoglycemia Treatment Stop: 01/01/24 01:13 Guaifenesin (Guaifenesin Sugar Free 100 Mg/5 Ml Udc) 100 mg PO Q6H PRN PRN Reason: Cough Stop: 01/02/24 08:55 Piperacillin Sod/Tazobactam Sod (Zosyn) 4.5 gm in 100 mls @ 25 mls/hr IV Q8H [facility] Stop: 12/09/23 07:59 Last Admin: 12/03/23 07:34 Dose: 25 mls/hr Daptomycin 400 mg/ Syringe 8 mls @ 4 mls/min IV Q24H [facility]; Protocol Stop: 12/18/23 05:59 Insulin Aspart (Insulin Aspart Per Unit Charge) 0 units SC ACHS [facility] Stop: 01/01/24 01:13 Last Admin: 12/03/23 09:05 Dose: 17 units Insulin Glargine (Lantus Per Unit Charge) 15 units SQ DAILY [facility] Stop: 01/02/24 08:59 Last Admin: 12/03/23 09:06 Dose: 15 units Miscellaneous (Carbohydrates For Hypoglycemia ) 15 - 30 gm PO UD PRN PRN Reason: Hypoglycemia Protocol Stop: 01/01/24 01:13 Nitroglycerin (Nitroglycerin Sl 0.4 Mg/Tab Tab) 0.4 mg SL Q5M PRN PRN Reason: Chest Pain Stop: 01/01/24 01:13 Ondansetron HCl (Ondansetron Inj 2 Mg/Ml 2 Ml Vial) 4 mg IV Q6H PRN PRN Reason: Nausea Stop: 01/01/24 01:13 Polyethylene Glycol (Polyethylene (Miralax) 17 Gm Pack) 17 gm PO DAILY PRN PRN Reason: Constipation Stop: 01/01/24 01:13 Review of Systems Review of Systems: Constitutional- overall feels improved Eyes- no acute visual changes ENT- no sinus drainage; no pharyngitis Pulmonary- + cough, no sputum, no wheezing, no shortness of breath Cardiac- no chest pain, no palpitations, no orthopnea, no dependent edema GI- no nausea, no vomiting, no diarrhea, no melena, no hematochezia - no dysuria, no hematuria Musculoskeletal- no arthralgias, no myalgias Derm- no rashes, Hematologic- no unusual bruising, no unusual bleeding Lymphatics- no adenopathy Neuro- no headaches, no focal neurologic symptoms Psych- no anxiety, no depression Physical Exam Physical Exam: General- adult male seen at bedside Head- atraumatic Eyes- PERRL, EOMI, anicteric ENT- oropharynx clear Neck- supple, no JVD, no adenopathy, no thyromegaly; carotids +2/2, no bruits appreciated Lungs- clear to auscultation and percussion Heart- regular rhythm; no murmur, no gallop, no rub appreciated Abdomen- normal bowel sounds, soft, nontender, no masses or hepatosplenomegaly Extremities- no pretibial edema, no calf tenderness; peripheral pulses intact dressing is intact on the left foot S/P amputations of the 1st and second digits of left foot and 1st digit right foot. Neuro- alert, oriented x 3; PERRL, EOMI; Skin- warm & dry Results & Data Results & Data Vital Signs (Past 12 Hours) Vital Signs Temp Pulse Pulse Pulse Resp BP Pulse Ox 12/03/23 11:18 36.4 C L 98 H 18 146/71 H 96 12/03/23 10:20 96 H 17 95 12/03/23 07:59 36.6 C 96 H 18 151/73 H 95 12/03/23 07:17 97 H 12/03/23 04:37 37.1 C 116 H 20 159/93 H 91 12/03/23 02:22 130 H 12/03/23 00:14 38.0 C H 101 H 20 147/66 H 96 O2 Del Method FiO2 12/03/23 11:18 Room Air 12/03/23 10:20 Room Air 21 12/03/23 07:59 Room Air 12/03/23 07:17 12/03/23 04:37 Room Air 12/03/23 02:22 12/03/23 00:14 Room Air Diagnostic Findings Laboratory Results WBC 10.23 K/ul (4.8-10.8) 12/03/23 03:10 RBC 4.18 M/uL (4.70-6.10) L 12/03/23 03:10 Hgb 11.5 g/dl (14.0-18.0) L 12/03/23 03:10 Hct 34.3 % (42.0-52.0) L 12/03/23 03:10 MCV 82.1 fL (80.0-100.0) 12/03/23 03:10 MCH 27.5 pg (25.0-34.0) 12/03/23 03:10 MCHC 33.5 g/dL (32.0-36.0) 12/03/23 03:10 RDW Std Deviation 37.4 fL (36.4-46.3) 12/03/23 03:10 RDW Coeff of Sean 12.3 % (11.5-14.5) 12/03/23 03:10 Plt Count 303 K/uL (130-400) 12/03/23 03:10 MPV 10.1 fL (9.4-12.4) 12/03/23 03:10 Immature Gran % (Auto) 0.8 % 12/02/23 05:33 Neut % (Auto) 83.7 % 12/02/23 05:33 Lymph % (Auto) 7.5 % 12/02/23 05:33 [place] % (Auto) 7.5 % 12/02/23 05:33 Eos % (Auto) 0.3 % 12/02/23 05:33 Baso % (Auto) 0.2 % 12/02/23 05:33 Neut # (Auto) 10.67 K/uL (1.40-6.50) H 12/02/23 05:33 Lymph # (Auto) 0.95 K/uL (1.20-3.40) L 12/02/23 05:33 [place] # (Auto) 0.96 K/uL (0.11-0.59) H 12/02/23 05:33 Eos # (Auto) 0.04 K/uL (0.00-0.50) 12/02/23 05:33 Baso # (Auto) 0.02 K/uL (0.00-0.20) 12/02/23 05:33 Immature Gran # (Auto) 0.10 K/uL (0.01-0.20) 12/02/23 05:33 PT 13.3 Seconds (9.0-12.0) H 12/01/23 19:19 INR 1.2 (0.9-1.1) H 12/01/23 19:19 Sodium 131 mmol/L (136-145) L 12/03/23 03:10 Potassium 3.6 mmol/L (3.5-5.1) 12/03/23 03:10 Chloride 100 mmol/L (98-107) 12/03/23 03:10 Carbon Dioxide 20 mmol/L (21-32) L 12/03/23 03:10 Anion Gap 11 (3-11) 12/03/23 03:10 BUN 17 mg/dl (6-23) 12/03/23 03:10 Creatinine 0.76 mg/dl (0.6-1.4) 12/03/23 03:10 Est Cr Clr Drug Dosing 115.0 ml/min 12/03/23 03:10 Est GFR ( Amer) 119.0 ml/min 12/03/23 03:10 Est GFR (Non-Af Amer) 102.7 ml/min 12/03/23 03:10 BUN/Creatinine Ratio 22.4 (10-20) H 12/03/23 03:10 Glucose 301 mg/dl (70-99(Fasting)) H* 12/03/23 03:10 POC Glucose 318 mg/dl (70-99) H* 12/03/23 08:09 POC Glucose 321 mg/dl (70-99) H* 12/03/23 08:09 Estimat Average Glucose 143 mg/dl 12/02/23 05:33 Hemoglobin A1c 6.6 % (4.5-5.6) H 12/02/23 05:33 Lactate 1.4 mmol/L (0.4-2.0) 12/03/23 03:10 Calcium 8.9 mg/dl (8.6-10.3) 12/03/23 03:10 Magnesium 1.6 mg/dl (1.7-2.4) L 12/03/23 03:10 Iron 21 mcg/dl (35-175) L 12/03/23 03:10 TIBC 210 mcg/dl (250-450) L 12/03/23 03:10 Unsaturated IBC 189 mcg/dl (155-355) 12/03/23 03:10 Transferrin % Sat 10 % (20-50) L 12/03/23 03:10 Total Bilirubin 2.2 mg/dl (0.2-1.0) H 12/03/23 03:10 Direct Bilirubin 1.1 mg/dl (0-0.2) H 12/03/23 03:10 AST 29 U/L (13-39) 12/03/23 03:10 ALT 24 U/L (7-52) 12/03/23 03:10 Alkaline Phosphatase 140 U/L (34-104) H 12/03/23 03:10 Total Protein 6.6 gm/dl (6.0-8.3) 12/03/23 03:10 Albumin 3.5 gm/dl (3.4-5.0) 12/03/23 03:10 Globulin 3.0 gm/dl (2.5-4.0) 12/01/23 19:19 Albumin/Globulin Ratio 1.2 (0.9-2) 12/01/23 19:19 Lipase 6 U/L (11-82) L 12/01/23 19:19 Urine Color [place] 12/01/23 20:49 Urine Appearance Cloudy (Clear) A 12/01/23 20:49 Urine pH 5.5 (4.5-7.5) 12/01/23 20:49 Ur Specific [place] 1.035 (1.000-1.030) H 12/01/23 20:49 Urine Protein 2+ (Negative) H 12/01/23 20:49 Urine Glucose (UA) Negative (Negative) 12/01/23 20:49 Urine Ketones 2+ (Negative) H 12/01/23 20:49 Urine Blood Negative (Negative) 12/01/23 20:49 Urine Nitrite Positive (Negative) A 12/01/23 20:49 Urine Bilirubin 1+ (Negative) H 12/01/23 20:49 Urine Urobilinogen Positive (Negative) H 12/01/23 20:49 Ur Leukocyte Esterase 1+ (Negative) H 12/01/23 20:49 Urine WBC (Auto) 0-5 /hpf (0-5) 12/01/23 20:49 Urine RBC (Auto) 3-5 /hpf (0-2) H 12/01/23 20:49 U Hyaline Cast (Auto) 11-20 /lpf (0-2) H 12/01/23 20:49 U Epithel Cells (Auto) 3-5 /hpf (0-2) H 12/01/23 20:49 Urine Bacteria (Auto) None Seen (None Seen) 12/01/23 20:49 Urine Mucus Present (None Prsent) A 12/01/23 20:49 Adenovirus (PCR) Not Detected (NotDetected) 12/01/23 19:19 B. pertussis DNA (PCR) Not Detected (NotDetected) 12/01/23 19:19 B.parapertussis DNA PCR Not Detected (NotDetected) 12/01/23 19:19 C. pneumoniae DNA (PCR) Not Detected (NotDetected) 12/01/23 19:19 Coronavirus OC43 (PCR) Not Detected (NotDetected) 12/01/23 19:19 Coronavirus HKU1 (PCR) Not Detected (NotDetected) 12/01/23 19:19 Coronavirus 229E (PCR) Not Detected (NotDetected) 12/01/23 19:19 SARS-CoV-2 (PCR) Not Detected (NotDetected) 12/01/23 19:19 Coronavirus NL63 (PCR) Not Detected (NotDetected) 12/01/23 19:19 Human Metapneumovir PCR Not Detected (NotDetected) 12/01/23 19:19 Influenza Type A (PCR) Not Detected (NotDetected) 12/01/23 19:19 Influenza Type B (PCR) Not Detected (NotDetected) 12/01/23 19:19 M. pneumoniae (PCR) Not Detected (NotDetected) 12/01/23 19:19 Parainfluenza 1 (PCR) Not Detected (NotDetected) 12/01/23 19:19 Parainfluenza 2 (PCR) Not Detected (NotDetected) 12/01/23 19:19 Parainfluenza 3 (PCR) Not Detected (NotDetected) 12/01/23 19:19 Parainfluenza 4 (PCR) Not Detected (NotDetected) 12/01/23 19:19 RSV (PCR) Not Detected (NotDetected) 12/01/23 19:19 Entero/Rhino (PCR) Not Detected (NotDetected) 12/01/23 19:19 Staphylococcus sp PCR DETECTED (NotDetected) A 12/01/23 22:41 Staph aureus (PCR) DETECTED (NotDetected) A 12/01/23 22:41 mecA/C & MREJ Resist Gene MRSA Not Detected (NotDetected) 12/01/23 22:41 Bld Cult ID Panel PCR See PCR Comment (NotDetected) 12/01/23 22:41 Impressions Foot X-Ray 12/01/23 19:06 XR foot LT min 3V routine CLINICAL HISTORY: Ulcer of foot, Diabetic TECHNIQUE: 3 views of the left foot were obtained. Comparison: None available at the time of this dictation. FINDINGS: Status post amputation of the second and third digits. Degenerative changes are seen throughout the foot. No focal erosions are seen to suggest osteomyelitis. Soft tissue swelling is seen with suggestion of ulceration versus subcutaneous gas. IMPRESSION: No radiographic evidence of osteomyelitis. If clinical concern remains, MRI is a more sensitive modality. ACT 112: Negative or not required by law. Electronically signed by: Jessee Viveros M.D. 12/02/2023 7:08 AM Liver Ultrasound 12/02/23 13:58 ABDOMINAL ULTRASOUND, RIGHT UPPER QUADRANT HISTORY: elevated Bilirubin. COMPARISON: None. FINDINGS: Pancreas: The pancreas demonstrates a normal echotexture. Liver: No hepatic masses or intrahepatic bile duct dilatation. The main portal vein is patent. 18 cm in length. Gallbladder: The gallbladder is surgically absent. CBD: 4 mm. Right kidney: No hydronephrosis. IMPRESSION: 1. No significant abnormality identified within the right upper quadrant. 2. Prior cholecystectomy ACT 112: Negative or not required by law. Electronically signed by: Maurilio Falcon M.D. 12/02/2023 3:08 PM Chest X-Ray 12/03/23 02:59 XR chest 1V portable HISTORY: cough COMPARISON: None. FINDINGS: No pneumothorax. No pleural effusions. The heart is mildly enlarged. Mild diffuse interstitial thickening most pronounced within the right lung and lung bases. This may represent mild congestive change on the background of chronic interstitial change. An interstitial pneumonitis is considered less likely but not entirely excluded. No focal lung consolidations to suggest a pneumonia. IMPRESSION: Mild diffuse interstitial thickening most pronounced within the right lung and lung bases. This may represent mild congestive change on the background of chronic interstitial change. An interstitial pneumonitis is considered less likely but not entirely excluded. ACT 112: Negative or not required by law. Electronically signed by: Maurilio Falcon M.D. 12/03/2023 7:21 AM
[2023-12-03] MEDS: ceFAZolin 2000MG 2,000 MG/15 ML SYR IV SCH (14:32)
--- NOTE | 2023-12-03 14:35 | Infectious Disease Consult ---
Date of Service December 03, 2023 Telehealth Information I performed this visit using a real-time telehealth connection between my location and the patients location ([facility]). After connecting through interactive tele-video, patient was identified by name and date of and/or wristband check.Patient (or authorized healthcare dental sales representative) was informed that this was a telemedicine visit and it was being conducted confidentially over secure lines. My office door was closed and no o ne else was present in the room with me.Patient (or authorized healthcare dental sales representative) provided consent to proceed with the visit, expressed an understanding of privacy and security of the telemedicine visit, and gave permission to have a hospital dental sales representative in the room in order to assist with the visit and to conduct portions of the visit, as needed. I informed the patient (or authorized healthcare dental sales representative) that I reviewed their record and presented the opportunity for them to ask any questions regarding the visit today. The patient agreed to participate. Assessment & Plan (1) Bacteremia due to methicillin susceptible Staphylococcus aureus (MSSA): Plan: Agree with IV Ancef (usual dose is 2g q8h - but discuss with pharmacy if there is any question). Order a transthoracic echocardiogram. Repeat blood cultures every 48 hours, until clear. If joint pain/redness/swelling, ask Ortho to rule out a septic joint. If back pain/cauda equina symptoms, image the spine to look for OM/SEA. Follow up Podiatry consult re: debridement. If any orders were placed, it will be noted above. Otherwise, all orders are deferred to the primary/requesting service. These recommendations are not final. For subsequent recommendations, use the on-call schedule to find who is covering your facility. History of Present Illness History of Present Illness The patient presented for fever (which he initially attributed to a UTI but he did not really have any symptoms except for dark urine). He was noted to have a foot ulceration and BCX grew MSSA. Allergies Allergy/AdvReac Type Severity Reaction Status Date / Time No Known Allergies Allergy Verified 12/01/23 19:15 Home Medications Medication Instructions Recorded Confirmed Type insulin aspart U-100 100 unit/mL 1 sliding scale dose subcut UD 12/01/23 12/01/23 History subcutaneous solution insulin glargine 100 unit/mL 15 unit subcut DAILY 12/01/23 12/01/23 History subcutaneous solution (Lantus U-100 Insulin) Patient History Social History Smoking Status: Former smoker Hx Alcohol Use: Yes Alcohol type: beer Hx Substance Use: No Preferred Language: Kinyarwanda Communication Ability: Effective Associate Principal Required: No Beliefs That Will Affect Care: None Current Living Situation: Spouse Other Information That Helps Us Care for You: No Feels Safe at Home: Yes Safety Concerns: Feels Safe At This Time Assistive Devices: Walker Assistive Devices Comment: bilateral 1st and second toe amputation Review of Systems As reviewed in HPI; a complete ROS was otherwise negative Physical Exam Vitals: see EMR Exam limited due to constraints of telemedicine Gen/Constitutional: appears at stated age, NAD, nontoxic Head: AT, NC Eyes: sclera anicteric, no conjunctival injection ENT: MMM, trachea midline Card: appears to be well-perfused Resp: not tachypneic, nml effort, symmetric chest rise, no accessory muscle use Derm: no visible diaphoresis, no visible rash, no visible jaundice Results & Data Vital Signs (Past 12 Hours) Vital Signs Temp Pulse Pulse Resp BP Pulse Ox O2 Del Method 12/03/23 11:18 36.4 C L 98 H 18 146/71 H 96 Room Air 12/03/23 10:20 96 H 17 95 Room Air 12/03/23 07:59 36.6 C 96 H 18 151/73 H 95 Room Air 12/03/23 07:17 97 H 12/03/23 04:37 37.1 C 116 H 20 159/93 H 91 Room Air FiO2 12/03/23 11:18 12/03/23 10:20 21 12/03/23 07:59 12/03/23 07:17 12/03/23 04:37 Laboratory Results SEE EMR Diagnostic Findings [address] [place] [address] / Director: Epifanio Baker M.D. Clinical Laboratory Report Name: DAYO WEISS Acct: [id number] Status: ADM IN : 1965 [facility] Date: 12/01/23 Age: 57 Sex: M Dis Date: Loc: [address]/Bed: [facility] Spec: [id number] Collected: 12/01/23 Received: 12/01/[address]: Pedro Conde DO Source: Blood OV Order: Ordered: Blood Culture Comments: Blood culture drawn venously from Left Arm. Procedure Result Verified Site Blood Culture Aerobic Preliminary 12/03/23-1128 Organism 1 Staphylococcus species Sens Sensitivities to Follow Blood Culture PCR Panel If viewing in EMR, results available under LAB Serology tab. Phoned positive Blood Culture Gram Stain report to Flora Jackson on 12/02/23 at 1826 by [id number]. [place] [id number]. Blood Culture Anaerobic Preliminary 12/02/23-2300 No growth in Anaerobic bottle after 24 hours.
[2023-12-03] MEDS: GADOBUTROL 65ML VIAL IV ONE (23:55)
--- NOTE | 2023-12-04 02:38 | Magnetic Resonance Report ---
Exam(s): MRI LEFT FOOT W/WO Contrast IV Amt: 8cc gadavist EXAM: MR Left Lower Extremity Without and With Intravenous Contrast, Foot CLINICAL HISTORY: Reason for exam: r/o osteomyelitis. TECHNIQUE: Multiplanar magnetic resonance images of the left foot without and with intravenous contrast. CONTRAST: Patient received 8cc gadavist of IV contrast COMPARISON: No relevant prior studies available. FINDINGS/IMPRESSION: Status-post amputation of the great toe at the MTP. Fluid collection surrounding the distal first metatarsal stump measures 4.0 x 3.4 x 1.0 cm. Soft tissue abscess cannot be excluded, especially given that this tract to the skin surface. Associated, severe tenosynovitis of the extensor hallucis (series 7 image 8). Mild edema in the first metatarsal, concerning for osteomyelitis. Amputation of the second ray at the second MTP. Electronically signed by: Emmanuel Cardoza MD 12/04/23 02:37 AM
[2023-12-04] MEDS ORDERED: METOPROLOL TARTRATE 25 MG TAB PO STA (03:47)
[2023-12-04] MEDS ORDERED: DAPTOmycin 400 MG in SYRINGE 0 ML IV SCH (06:00)
[2023-12-04 06:37] LABS: Hemoglobin 11.2 g/dl (14.0-18.0); Mean Corpuscular Hemoglobin 28.2 pg (25.0-34.0); Mean Corpuscular Hgb Conc 33.9 g/dL (32.0-36.0); Mean Corpuscular Volume 83.1 fL (80.0-100.0); Mean Platelet Volume 10.2 fL (9.4-12.4); Platelet Count 290 K/uL (130-400); RDW Coefficient of Variation 12.2 % (11.5-14.5); RDW Standard Deviation 37.4 fL (36.4-46.3); Red Blood Count 3.97 M/uL (4.70-6.10); White Blood Count 11.85 K/ul (4.8-10.8)
[2023-12-04 06:56] LABS: Calcium 8.5 mg/dl (8.6-10.3); Magnesium 1.6 mg/dl (1.7-2.4); Potassium 3.5 mmol/L (3.5-5.1)
[2023-12-04 07:02] LABS: BUN Creatinine Ratio 18.3 (10-20); Est GFR (African American) 122.4 ml/min; Est GFR (Non-African American) 105.6 ml/min
--- NOTE | 2023-12-04 08:14 | Hospitalist Progress Note ---
Date of Service December 04, 2023 Assessment & Plan (1) Sepsis: Plan 57-year-old male with past medical history significant for type 1 diabetes, mild nonproliferative diabetic retinopathy, vitamin D deficiency, history of amputation of bilateral metatarsophalangeal joint admitted for fevers chills and dark urine going on since last week and also callus in his left dorsal aspect of foot draining since last week. Sepsis Bacteremia, gram positive Osteomyelitis left foot Abscess of left foot Presented with tachycardia and leukocytosis and now bacteremia, infectious source left foot Having fevers at home per patient. Febrile overnight Has evidence of a UTI, urine Cx ordered and pending MRI left foot noting abscess and osteomyelitis of left first metatarsal Foot xray reviewed and no evidence of osteomyelitis Wound culture currently growing staph aureus Blood Cx x1 set currently growing staph aureus in 1 bottle, repeat blood Cx pending Was originally on Zosyn and Daptomycin ID was consulted, recommended transition to Ancef TTE ordered in setting of gram positive bacteremia, possible need for EUGENIO Podiatry consult appreciated, recommended ortho consult for possible debridement/I&D Ortho consulted, appreciate recs. Noted/Stated the following: -"We recommended aspiration of the fluid from the left foot and patient agreed. We aspirated about 12 ml of cloudy purulent fluid and sent this for analysis. We'll make him npo after midnight in case he needs some surgery for this. We will plan on possible I & D of the left foot tomorrow (pending lab results). He might need a wound vac post op." Pt NPO after midnight Follow aspiration Cx from 12/03, adjust abx as needed Continue to monitor Hypomagnesemia replete as needed Diabetes type 1 Continue basal insulin and SSI Will follow blood sugars Anemia Hemoglobin of 11.7-->11.3-->11.5 today Recent outpatient hemoglobin 14.4 Anemia W/U--> iron deficiency. Will give iron. Will need GI W/U Elevated bilirubin Bilirubin 1.9--> 2.5--> 2.2 today Alk phos 114-->112-->140 today Possible from sepsis Follow repeat labs. US reviewed and not significant Diet: DMI, npo after midnight DVT prophylaxis: SCDs for now Disposition: per PT/OT recs after surgery Admission and Anticipated Discharge Date Admission Date: December 01, 2023 Subjective pt was seen sitting at bedside. Denied acute concerns. Discussion of MRI findings. Review of Systems Review of Systems: All systems reviewed & are unremarkable except as noted in Subjective Physical Exam Physical Exam: General: Alert, oriented. No acute distress Skin: erythema to left foot Psych: Appropriate mood and affect HEENT: NC/AT CV: RRR Resp: Breath sounds clear bilaterally, no increased effort of breathing. Abdomen: Soft, nontender, nondistended Extremities: Left foot with noted erythema and swelling, noted toe amputations, lesion on plantar surface Results & Data Results & Data Vital Signs (Past 12 Hours) Vital Signs Temp Pulse Pulse Resp BP Pulse Ox O2 Del Method 12/04/23 07:27 110 H 12/04/23 03:50 38.0 C H 111 H 20 149/76 H 96 Room Air 12/04/23 03:44 115 H 12/04/23 00:19 36.9 C 102 H 20 132/71 96 Room Air 12/03/23 21:59 107 H 12/03/23 21:15 Room Air Diagnostic Findings Foot X-Ray 12/01/23 19:06 XR foot LT min 3V routine CLINICAL HISTORY: Ulcer of foot, Diabetic TECHNIQUE: 3 views of the left foot were obtained. Comparison: None available at the time of this dictation. FINDINGS: Status post amputation of the second and third digits. Degenerative changes are seen throughout the foot. No focal erosions are seen to suggest osteomyelitis. Soft tissue swelling is seen with suggestion of ulceration versus subcutaneous gas. IMPRESSION: No radiographic evidence of osteomyelitis. If clinical concern remains, MRI is a more sensitive modality. ACT 112: Negative or not required by law. Electronically signed by: Jessee Viveros M.D. 12/02/2023 7:08 AM Liver Ultrasound 12/02/23 13:58 ABDOMINAL ULTRASOUND, RIGHT UPPER QUADRANT HISTORY: elevated Bilirubin. COMPARISON: None. FINDINGS: Pancreas: The pancreas demonstrates a normal echotexture. Liver: No hepatic masses or intrahepatic bile duct dilatation. The main portal vein is patent. 18 cm in length. Gallbladder: The gallbladder is surgically absent. CBD: 4 mm. Right kidney: No hydronephrosis. IMPRESSION: 1. No significant abnormality identified within the right upper quadrant. 2. Prior cholecystectomy ACT 112: Negative or not required by law. Electronically signed by: Maurilio Falcon M.D. 12/02/2023 3:08 PM Chest X-Ray 12/03/23 02:59 XR chest 1V portable HISTORY: cough COMPARISON: None. FINDINGS: No pneumothorax. No pleural effusions. The heart is mildly enlarged. Mild diffuse interstitial thickening most pronounced within the right lung and lung bases. This may represent mild congestive change on the background of chronic interstitial change. An interstitial pneumonitis is considered less likely but not entirely excluded. No focal lung consolidations to suggest a pneumonia. IMPRESSION: Mild diffuse interstitial thickening most pronounced within the right lung and lung bases. This may represent mild congestive change on the background of chronic interstitial change. An interstitial pneumonitis is considered less likely but not entirely excluded. ACT 112: Negative or not required by law. Electronically signed by: Maurilio Falcon M.D. 12/03/2023 7:21 AM Foot MRI 12/03/23 15:12 Exam(s): MRI LEFT FOOT W/WO Contrast IV Amt: 8cc gadavist EXAM: MR Left Lower Extremity Without and With Intravenous Contrast, Foot CLINICAL HISTORY: Reason for exam: r/o osteomyelitis. TECHNIQUE: Multiplanar magnetic resonance images of the left foot without and with intravenous contrast. CONTRAST: Patient received 8cc gadavist of IV contrast COMPARISON: No relevant prior studies available. FINDINGS/IMPRESSION: Status-post amputation of the great toe at the MTP. Fluid collection surrounding the distal first metatarsal stump measures 4.0 x 3.4 x 1.0 cm. Soft tissue abscess cannot be excluded, especially given that this tract to the skin surface. Associated, severe tenosynovitis of the extensor hallucis (series 7 image 8). Mild edema in the first metatarsal, concerning for osteomyelitis. Amputation of the second ray at the second MTP. Electronically signed by: Emmanuel Cardoza MD 12/04/23 02:37 AM
[2023-12-04] MEDS: MAGNESIUM OXIDE 400 MG TAB PO SCH (08:44)
[2023-12-04] MEDS: MAGNESIUM SULFATE / D5W 1 GM/100 ML BAG IV SCH (08:44)
--- NOTE | 2023-12-04 11:13 | Orthopedic Consultation ---
Date of Service December 04, 2023 Assessment & Plan (1) Cellulitis of left foot: He was seen and examined by Dr. Espinoza today. We recommended aspiration of the fluid from the left foot and patient agreed. We aspirated about 12 ml of cloudy purulent fluid and sent this for analysis. We'll make him npo after midnight in case he needs some surgery for this. We will plan on possible I & D of the left foot tomorrow (pending lab results). He might need a wound vac post op. Procedure note: Left foot was sterilely prepped with alcohol and using aseptic technique approximately 12ml of cloudy purulent fluid was aspirated from the dorsal aspect of the foot over the metatarsal head area. He tolerated the procedure well. No complications. Will send this off for cell count, crystal analysis, gram stain/cultures. History of Present Illness Reason for Consultation: . Requesting Physician: . Attending Physician: Val Naidu MD . Magen is a 57 year old assisted diabetic patient, admitted several days ago due to fever, leukocytosis, sepsis. 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 He started to develop some pain his left foot last week, swelling/redness about 6-7 days ago, and a draining wound on the plantar side about 6 days ago. He was at the [facility] doing quite a bit of walking and felt like he had a fever, possible UTI due to dark colored urine. He then came to [facility] and was admitted to the Hospitalist service. Blood cultures were positive for MSSA as well as wound culture from the foot. He has been receiving IV antibiotics, was seen by Podiatry, but they are apparently not available, and orthopedics was consulted. He did have xray and mri of his foot. Allergies Allergy/AdvReac Type Severity Reaction Status Date / Time No Known Allergies Allergy Verified 12/01/23 19:15 Home Medications Medication Instructions Recorded Confirmed Type insulin aspart U-100 100 unit/mL 1 sliding scale dose subcut UD 12/01/23 12/01/23 History subcutaneous solution insulin glargine 100 unit/mL 15 unit subcut DAILY 12/01/23 12/01/23 History subcutaneous solution (Lantus U-100 Insulin) Past Med/Surg History Problem List Bacteremia due to methicillin susceptible Staphylococcus aureus (MSSA) History of amputation of great toe of both feet Ulcer of left foot with fat layer exposed Foot ulcer due to secondary DM Cellulitis of left foot Urinary tract infection (Acute) Sepsis Social History Smoking Status: Former smoker Hx Alcohol Use: Yes Alcohol type: beer Hx Substance Use: No Preferred Language: Icelandic Communication Ability: Effective 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 Physical Exam .alert and oriented. NAD Left foot: obvious erythema, swelling, fluctuance, of the dorsal/distal aspect of his foot, mostly over the 1st MTP area and previous amputation site. He has a callus on the plantar aspect of the foot, with slight drainage on the dressing. He is tender to palpation. Results & Data Results & Data Laboratory Results . Diagnostic Findings .xrays reviewed of the left foot shows previous amputations of the great toe and 2nd toe. MRI of the foot shows fluid in around the distal aspect of the 1st metatarsal, slight edema of the 1st metatarsal as well, concerning for osteomyelitis per radiology report. PG Care Time/CCT Total # of Minutes Spent Total Time Spent with Patient: Total time spent is greater than 50% in coordination of care (as documented) at patient's floor/unit and/or counseling patient: Coding Level of Care Code 15699 IN/OBS CONSULT LVL 3,45M (25 - SIGNIFICANT, SEPARATELY IDENTIFIABLE ) Diagnoses Cellulitis of left foot L03.116
[2023-12-04 12:20] LABS: Appearance Synovial Fluid Turbid; Color Synovial Fluid Pink; Mononuclear WBC Synovial 12.1 %; Polynuclear WBC Synovial 87.9 %; RBC Synovial Fluid Auto 400000 /uL; Source Synovial Fluid Other; WBC Synovial Fluid Auto 378800 /ul (0-200)
[2023-12-05 06:25] LABS: Basophils # (auto) 0.04 K/uL (0.00-0.20); Basophils % (auto) 0.4 %; Eosinophils # (auto) 0.15 K/uL (0.00-0.50); Eosinophils % (auto) 1.6 %; Hematocrit (blood only) 33.8 % (42.0-52.0); Hemoglobin 11.4 g/dl (14.0-18.0); Immature Granulocytes # (auto) 0.17 K/uL (0.01-0.20); Immature Granulocytes % (auto) 1.8 %; Lymphocytes # (auto) 1.58 K/uL (1.20-3.40); Mean Corpuscular Hemoglobin 28.1 pg (25.0-34.0); Mean Corpuscular Hgb Conc 33.7 g/dL (32.0-36.0); Mean Corpuscular Volume 83.3 fL (80.0-100.0); Mean Platelet Volume 9.6 fL (9.4-12.4); Monocytes # (auto) 0.76 K/uL (0.11-0.59); Monocytes % (auto) 8.2 %; Neutrophils # (auto) 6.57 K/uL (1.40-6.50); Platelet Count 317 K/uL (130-400); RDW Coefficient of Variation 12.3 % (11.5-14.5); RDW Standard Deviation 37.9 fL (36.4-46.3); Red Blood Count 4.06 M/uL (4.70-6.10); White Blood Count 9.27 K/ul (4.8-10.8)
[2023-12-05 06:46] LABS: Albumin Level 3.1 gm/dl (3.4-5.0); BUN Creatinine Ratio 14.3 (10-20); Bilirubin,Total 0.7 mg/dl (0.2-1.0); Calcium 8.6 mg/dl (8.6-10.3); Creatinine Clr Calc Pharmacy 125.8 ml/min; Est GFR (African American) 123.1 ml/min; Est GFR (Non-African American) 106.2 ml/min; Magnesium 1.9 mg/dl (1.7-2.4); Phosphorus 3.3 mg/dl (2.5-4.9); Potassium 3.4 mmol/L (3.5-5.1); Total Protein 6.1 gm/dl (6.0-8.3)
--- NOTE | 2023-12-05 09:27 | Orthopedic Progress Note ---
Date of Service December 05, 2023 Assessment & Plan (1) Foot abscess, left: He was seen and examined by Dr. Espinoza. NPO. Cultures positive for staph aureus, sensitivities to follow. Plan on I & D of left foot today. Will likely pack the wound and then will need a wound vac placement. Procedure explained with patient and consent obtained. Subjective .57 year old patient with left foot infection. No new complaints today. Review of Systems All systems reviewed & are unremarkable except as noted in HPI & below. Physical Exam .alert and oriented. NAD Left foot: +swelling, ecchymosis and tenderness around the previous amputation site of left forefoot. Results & Data Results & Data Laboratory Results . Diagnostic Findings . PG Care Time/CCT Total # of Minutes Spent Total Time Spent with Patient: Total time spent is greater than 50% in coordination of care (as documented) at patient's floor/unit and/or counseling patient: Coding Level of Care Code 69839 SUB INP/OBS CARE 2/35MIN Diagnoses Foot abscess, left L02.612
[2023-12-05] MEDS: POTASSIUM CHLORIDE CRTAB 20 MEQ TABCR PO STA (10:19)
[2023-12-05] MEDS ORDERED: fentaNYL citrate PF 100 MCG/2 ML VIAL IV PRN (11:44)
[2023-12-05] MEDS ORDERED: ONDANSETRON INJ 2 MG/ML 2 ML VIAL IV PRN ×2 (11:44→15:33)
[2023-12-05] MEDS ORDERED: ePHEDrine sulfate 50 MG/ML AMP IV PRN (11:44)
[2023-12-05] MEDS ORDERED: ATROPINE SULFATE 0.1 MG/ML 10ML SYR IV PRN (11:44)
--- NOTE | 2023-12-05 11:44 | Anesthesiology Consultation ---
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 History Surgery Operation Date: 12/05/23 12:30 Proposed Procedures p Left Foot Incision and Drainage - Ramirez Espinoza MD Height/Weight Height: 5 ft 8 in Weight: 83.9 kg Allergies Allergy/AdvReac Type Severity Reaction Status Date / Time No Known Allergies Allergy Verified 12/01/23 19:15 Medications Home Medications Medication Instructions Recorded Confirmed Last Taken insulin aspart U-100 100 unit/mL 1 sliding scale dose subcut UD 12/01/23 12/01/23 Unknown subcutaneous solution insulin glargine 100 unit/mL 15 unit subcut DAILY 12/01/23 12/01/23 Unknown subcutaneous solution (Lantus U-100 Insulin) Active Medications Generic Name Dose Route Start Last Admin Trade Name Freq PRN Reason Stop Dose Admin Acetaminophen 650 mg 12/02/23 01:14 12/03/23 02:15 Acetaminophen 325 Mg Tab PO 01/01/24 01:13 650 mg Q4H PRN Administration Pain or Fever Cefazolin Sodium 2,000 mg in 15 mls @ 3.75 mls/min 12/03/23 13:15 12/05/23 05:14 Ancef 2000mg IV 12/17/23 13:14 3.75 mls/min Q8H MAGDALENA Administration Insulin Aspart 0 units 12/02/23 17:45 12/05/23 08:26 Insulin Aspart Per Unit Charge SC 01/01/24 01:13 Not Given ACHS MAGDALENA Insulin Glargine 15 units 12/03/23 09:00 12/05/23 08:24 Lantus Per Unit Charge SQ 01/02/24 08:59 15 units DAILY MAGDALENA Administration Magnesium Oxide 400 mg 12/04/23 09:00 12/05/23 08:24 Magnesium Oxide 400 Mg Tab PO 01/03/24 08:59 400 mg BID MAGDALENA Administration Social History Smoking Status: Former smoker Hx Alcohol Use: Yes Alcohol type: beer alcohol intake frequency: holidays/special occasions only Hx Substance Use: No substance use type: does not use Physical Exam Vital Signs Last Vital Signs Temp 98.2 F 12/05/23 11:01 Pulse 91 H 12/05/23 11:01 Resp 17 12/05/23 11:01 BP 157/79 H 12/05/23 11:01 Pulse Ox 97 12/05/23 11:01 O2 Del Method Room Air 12/05/23 11:01 FiO2 21 12/03/23 10:20 Testing Laboratory Results 12/05/23 05:45 12/05/23 05:45 PT 13.3 Seconds (9.0-12.0) H 12/01/23 19:19 INR 1.2 (0.9-1.1) H 12/01/23 19:19 Hemoglobin A1c 6.6 % (4.5-5.6) H 12/02/23 05:33 Urine Color [place] 12/01/23 20:49 Urine Appearance Cloudy (Clear) A 12/01/23 20:49 Urine pH 5.5 (4.5-7.5) 12/01/23 20:49 Ur Specific [place] 1.035 (1.000-1.030) H 12/01/23 20:49 Urine Protein 2+ (Negative) H 12/01/23 20:49 Urine Glucose (UA) Negative (Negative) 12/01/23 20:49 Urine Ketones 2+ (Negative) H 12/01/23 20:49 Urine Nitrite Positive (Negative) A 12/01/23 20:49 Ur Leukocyte Esterase 1+ (Negative) H 12/01/23 20:49 Urine WBC (Auto) 0-5 /hpf (0-5) 12/01/23 20:49 Urine RBC (Auto) 3-5 /hpf (0-2) H 12/01/23 20:49 U Hyaline Cast (Auto) 11-20 /lpf (0-2) H 12/01/23 20:49 U Epithel Cells (Auto) 3-5 /hpf (0-2) H 12/01/23 20:49 Urine Bacteria (Auto) None Seen (None Seen) 12/01/23 20:49 12/04/23 Unknown Gram Stain - Final Foot,Left Aerobic and Anaerobic Culture - Preliminary Staphylococcus species 12/02/23 19:13 Aerobic Blood Culture - Preliminary Blood No growth in Aerobic bottle after 48 hours. Anaerobic Blood Culture - Preliminary No growth in Anaerobic bottle after 48 hours. 12/02/23 10:09 Gram Stain - Final Foot Wound Culture - Final Staphylococcus aureus 12/01/23 22:41 Aerobic Blood Culture - Preliminary Blood Staphylococcus aureus Anaerobic Blood Culture - Preliminary No growth in Anaerobic bottle after 48 hours. 12/05/23 12/05/23 11:38 05:18 POC Glucose 239 H 166 H Electrocardiogram Date: 12/05/23 NSR @ 95 bpm LVH with repolarization abnormality
[2023-12-05] MEDS: LACTATED RINGER'S 1,000 ML IV SCH (11:45)
--- NOTE | 2023-12-05 11:55 | Hospitalist Progress Note ---
Date of Service December 05, 2023 Assessment & Plan (1) Sepsis: Plan 57-year-old male with past medical history significant for type 1 diabetes, mild nonproliferative diabetic retinopathy, vitamin D deficiency, history of amputation of bilateral metatarsophalangeal joint admitted for fevers chills and dark urine going on since last week and also callus in his left dorsal aspect of foot draining since last week. Sepsis Bacteremia, gram positive Osteomyelitis left foot Abscess of left foot Presented with tachycardia and leukocytosis and now bacteremia, infectious source left foot Having fevers at home per patient. Febrile overnight Has evidence of a UTI, urine Cx ordered and pending MRI left foot noting abscess and osteomyelitis of left first metatarsal Foot xray reviewed and no evidence of osteomyelitis Wound culture currently growing staph aureus Blood Cx x1 set on admission grew staph aureus in 1 bottle, repeat blood Cx NGTD Follow aspiration Cx from 12/03, currently growing staph aureus Was originally on Zosyn and Daptomycin ID was consulted, recommended transition to Ancef TTE ordered in setting of gram positive bacteremia, possible need for EUGENIO Podiatry consult appreciated, recommended ortho consult for possible debridement/I&D Ortho consulted, appreciate recs. Noted/Stated the following: -"We recommended aspiration of the fluid from the left foot and patient agreed. We aspirated about 12 ml of cloudy purulent fluid and sent this for analysis. We'll make him npo after midnight in case he needs some surgery for this. We will plan on possible I & D of the left foot tomorrow (pending lab results). He might need a wound vac post op." s/p I & D with ortho on 12/04, appreciate further ecs Continue to monitor Hypomagnesemia replete as needed Diabetes type 1 Continue basal insulin and SSI Will follow blood sugars Anemia Hemoglobin of 11.7-->11.3-->11.5 today Recent outpatient hemoglobin 14.4 Anemia W/U--> iron deficiency. Will give iron. Will need GI W/U Elevated bilirubin Bilirubin 1.9--> 2.5--> 2.2 today Alk phos 114-->112-->140 today Possible from sepsis Follow repeat labs. US reviewed and not significant Diet: DMI DVT prophylaxis: SCDs for now Disposition: per PT/OT recs after surgery Admission and Anticipated Discharge Date Admission Date: December 01, 2023 Subjective pt was seen sitting in bed before surgery. Denied acute concerns. States no more fevers, notes improvement in redness of left foot. Review of Systems Review of Systems: All systems reviewed & are unremarkable except as noted in Subjective Physical Exam Physical Exam: General: Alert, oriented. No acute distress Skin: erythema to left foot Psych: Appropriate mood and affect HEENT: NC/AT CV: RRR Resp: Breath sounds clear bilaterally, no increased effort of breathing. Abdomen: Soft, nontender, nondistended Extremities: Left foot with noted improved erythema and swelling, noted toe amputations, lesion on plantar surface Results & Data Results & Data Vital Signs (Past 12 Hours) Vital Signs Temp Pulse Pulse Resp BP BP Pulse Ox 12/05/23 11:01 36.8 C 91 H 17 157/79 H 97 12/05/23 07:25 37.0 C 93 H 16 154/71 H 95 12/05/23 07:19 12/05/23 07:05 99 H 12/05/23 03:56 37.0 C 86 18 145/80 H 96 12/05/23 00:00 37.0 C 87 18 149/77 H 96 O2 Del Method 12/05/23 11:01 Room Air 12/05/23 07:25 Room Air 12/05/23 07:19 Room Air 12/05/23 07:05 12/05/23 03:56 Room Air 12/05/23 00:00 Room Air
[2023-12-05] MEDS ORDERED: MIDAZOLAM HCL 1 MG/ML 2ML VIAL ONE (12:07)
[2023-12-05] MEDS ORDERED: fentaNYL citrate PF 100 MCG/2 ML VIAL ONE (12:07)
--- NOTE | 2023-12-05 13:02 | Electrocardiogram Report ---
Test Reason : Blood Pressure : */* mmHG Vent. Rate : 95 BPM Atrial Rate : 95 BPM P-R Int : 176 ms QRS Dur : 90 ms QT Int : 368 ms P-R-T Axes : 90 79 78 degrees QTcB Int : 462 ms Normal sinus rhythm Left ventricular hypertrophy with repolarization abnormality Abnormal ECG No previous ECGs available Confirmed by Juan Kim ([id number]) on 12/05/2023 1:01:54 PM Referred By: REFERRED SELF Confirmed By: Juan Kim
[2023-12-05] MEDS ORDERED: PROPOFOL IV EMULSION 10 MG/ML 20 ML VIAL IV ONE (14:10)
[2023-12-05] MEDS ORDERED: LIDOCAINE 2% 20 MG/ML 5 ML SYR IV ONE (14:10)
[2023-12-05] MEDS ORDERED: PHENYLEPHRINE HCL 10 MG/ML VIAL ONE (14:10)
[2023-12-05] MEDS ORDERED: ONDANSETRON INJ 2 MG/ML 2 ML VIAL ONE (14:10)
--- NOTE | 2023-12-05 14:25 | Operative Report ---
PG Post Operative Report Pre & Post Diagnosis Operation Date: 12/05/23 12:30 Pre-Op Diagnosis: Left Foot Abscess Post-Op Diagnosis: Left Foot Abscess I identified the patient and participated in the time-out.: Yes Procedure Operation Date: 12/05/23 12:30 Actual Procedures p Left Foot Incision and Drainage(Left) - Ramirez Espinoza MD Surgeon Ramirez Espinoza MD [employer] Walter Lynn PA-C Estimated Blood Loss 10 Findings Consistent with Post-Op Diagnosis Specimens None Anesthesia Type General Complications none Disposition Accompanied Patient To Recovery: No Indications The patient is a 57-year-old long-term diabetic with multiple foot problems and infections in the past with removal toes amputated. The past week he has developed increased pain discomfort swelling in his left foot. He was admitted by the hospitalist service. He was growing bacteria in his bloodstream. Of the left leg showed progressive cellulitis. We aspirated this yesterday showed a significant abscess which was also confirmed by MRI. The patient was indicated for irrigation and debridement. Description of Procedure The patient was taken the operating, identified, placed on the operating table in the supine position. All contact areas were appropriately padded. IV antibiotics were provided preoperatively. The general anesthetic was implemented. A left Tourniquet was placed in the left lower extremities then prepped and draped in usual sterile fashion. The left leg was elevated and exsanguinated. The tourniquet was placed at 300 mmHg. A curvilinear incision was made over the distal end of the foot extending from just medial to the distal end of the metatarsal on the first side and extending it distally and then over the distal portion of the foot. Sharp dissection was Through directly down to the infection and abscess area which was at the metatarsal head. We are debrided this somewhat proximally and distally to expose all abscessed areas. I then irrigated this extensively. We then took the plantar foot ulcer and debrided it above the right Randall/callus. Once this was completed we irrigated both wounds extensively. The tourniquet was then let down for return time 7 minutes. The wound was then packed with Betadine soaked 4 x 4 1. A sterile dressing composed of Xeroform, 4 x 4's, Kerlix wrap, sterile cast padding, Jalen bandage were applied. Patient then transferred to the recovery room in stable condition. Patient tolerated procedure well and no complications. Walter Lynn, physician phys assistant, was present for the entire procedure. His assistance was required for proper patient positioning, prepping and draping, surgical exposure, retraction, perform the technical details of the operation, placement of the packing and placement of the sterile bandage. I attest to the content of the Intraoperative Record and any orders documented therein. Any exceptions are noted below.
--- NOTE | 2023-12-05 14:42 | Anesthesiology Progress Note ---
Date of Service December 05, 2023 Anesthesia Post Procedure Vital Signs Vital Signs: Temp Pulse Pulse Pulse Resp BP BP 12/05/23 14:40 87 12 149/72 H 12/05/23 14:30 88 12 143/72 H 12/05/23 14:23 97.7 F 92 H 20 149/79 H 12/05/23 11:59 98.2 F 93 H 20 171/89 H 12/05/23 11:01 98.2 F 91 H 17 157/79 H 12/05/23 07:25 98.6 F 93 H 16 154/71 H 12/05/23 07:19 12/05/23 07:05 99 H 12/05/23 03:56 98.6 F 86 18 145/80 H 12/05/23 00:00 98.6 F 87 18 149/77 H 12/04/23 22:02 108 H 12/04/23 20:45 12/04/23 19:30 98.4 F 91 H 18 137/73 12/04/23 17:38 97.9 F 18 148/69 H 12/04/23 14:54 102 H Pulse Ox O2 Del Method O2 Flow Rate 12/05/23 14:40 94 Room Air 0 12/05/23 14:30 96 Room Air 0 12/05/23 14:23 96 Oxymask 4 12/05/23 11:59 99 Room Air 12/05/23 11:01 97 Room Air 12/05/23 07:25 95 Room Air 12/05/23 07:19 Room Air 12/05/23 07:05 12/05/23 03:56 96 Room Air 12/05/23 00:00 96 Room Air 12/04/23 22:02 12/04/23 20:45 Room Air 12/04/23 19:30 96 Room Air 12/04/23 17:38 99 Room Air 12/04/23 14:54 Transfer of Care Handoff Completed per policy Notes Mental Status: alert / awake / arousable and participated in evaluation Patient Amnestic to Procedure: Yes Nausea / Vomiting: adequately controlled Pain: adequately controlled Airway Patency, RR, SpO2: stable & adequate BP & HR: stable & adequate Hydration State: stable & adequate Anesthetic Complications: no major complications apparent and Pt Satisfied with anesthetic care
[2023-12-05] MEDS ORDERED: NALOXONE HCL 0.4 MG/1 ML VIAL/CARP IV PRN (15:33)
[2023-12-05] MEDS ORDERED: MAGNESIUM HYDROXIDE SUSP 30 ML UDC PO PRN (15:33)
[2023-12-05] MEDS ORDERED: INSULIN ASPART PER UNIT CHARGE SQ SCH (15:33)
[2023-12-05] MEDS ORDERED: bisacodyL 10 MG SUPP PR PRN (15:33)
[2023-12-05] MEDS ORDERED: oxyCODONE HCL IR 5 MG TAB (IMMEDIATE RELEASE) PO PRN (15:33)
[2023-12-05] MEDS ORDERED: PHARMACY GLYCEMIC MGMT CONSULT PRN (15:33)
[2023-12-05] MEDS ORDERED: METOCLOPRAMIDE HCL INJ 5 MG/ML 2 ML VIAL IV PRN (15:33)
[2023-12-05] MEDS: SODIUM CHLORIDE 0.9% 1,000 ML IV SCH (15:48)
--- NOTE | 2023-12-05 18:27 | Pharmacy Report ---
Pharmacy Glycemic Short Note 2 - Date of Service December 05, 2023 - Glycemic Short BSG Results (Last 24 hours): 12/04/23 12/05/23 12/05/23 20:41 05:18 05:45 Glucose 186 H POC Glucose 138 H 166 H 12/05/23 12/05/23 12/05/23 11:38 14:33 17:24 Glucose POC Glucose 239 H 216 H 235 H OUTPATIENT ANTIDIABETIC REGIMEN: * Lantus 15 units SQ Daily * Novolog CF 60, CR 20 BF, 15 AUDRA & DIN (max TDD 30 units/day) * HbA1c 6.6% (12/02/23) ASSESSMENT: * Magen is a 57 YOM admitted with a foot infection and a history of type 1 diabetes mellitus. He went for debridement of the infection today. Pharmacy has been consulted by orthopedic surgery to assist with glycemic management while inpatient. * Fasting BSG this AM acceptable, will continue current basal regimen. Only glycemic stressor is Ancef for foot infection. * Post-prandial BSGs not well-controlled, suggesting a need for tighter carbohydrate coverage. Hesitant to adjust too agressively since he is receiving a lot more than home dosage. PLAN FOR INPATIENT GLYCEMIC CONTROL: * Basal insulin 15 units SQ QAM * Bolus insulin * NovoLog per scale ACHS or Q6hrs while NPO * Goal Range: Low 110 mg/dL - High 140 mg/dL * Correction Factor: 20 mg/dL/unit * Nutritional / Prandial insulin per carb ratio of 1 unit per 6 grams CHO consumed
[2023-12-05] MEDS: DOCUSATE SODIUM 100 MG CAP PO SCH (21:29)
[2023-12-05] MEDS: ASPIRIN 81 MG ECTAB PO SCH (21:29)
[2023-12-05] MEDS: SENNA 8.6 MG TAB PO SCH (21:30)
[2023-12-05] MEDS: ACETAMINOPHEN 500 MG TAB PO SCH (21:34)
[2023-12-06 06:23] LABS: Basophils # (auto) 0.06 K/uL (0.00-0.20); Basophils % (auto) 0.5 %; Eosinophils # (auto) 0.13 K/uL (0.00-0.50); Eosinophils % (auto) 1.2 %; Hematocrit (blood only) 33.7 % (42.0-52.0); Hemoglobin 11.3 g/dl (14.0-18.0); Immature Granulocytes # (auto) 0.45 K/uL (0.01-0.20); Immature Granulocytes % (auto) 4.1 %; Lymphocytes # (auto) 1.62 K/uL (1.20-3.40); Lymphocytes % (auto) 14.8 %; Mean Corpuscular Hemoglobin 28.3 pg (25.0-34.0); Mean Corpuscular Hgb Conc 33.5 g/dL (32.0-36.0); Mean Corpuscular Volume 84.3 fL (80.0-100.0); Mean Platelet Volume 9.7 fL (9.4-12.4); Monocytes # (auto) 0.65 K/uL (0.11-0.59); Monocytes % (auto) 5.9 %; Neutrophils # (auto) 8.07 K/uL (1.40-6.50); Neutrophils % (auto) 73.5 %; Platelet Count 373 K/uL (130-400); RDW Coefficient of Variation 12.3 % (11.5-14.5); RDW Standard Deviation 37.4 fL (36.4-46.3); White Blood Count 10.98 K/ul (4.8-10.8)
[2023-12-06 07:00] LABS: Albumin Level 3.1 gm/dl (3.4-5.0); Bilirubin,Total 0.7 mg/dl (0.2-1.0); Calcium 8.6 mg/dl (8.6-10.3); Magnesium 1.9 mg/dl (1.7-2.4)
[2023-12-06 07:06] LABS: BUN Creatinine Ratio 18.8 (10-20); Creatinine Clr Calc Pharmacy 126.2 ml/min; Est GFR (African American) 127.8 ml/min; Est GFR (Non-African American) 110.2 ml/min; Globulin 3.1 gm/dl (2.5-4.0); Phosphorus 3.5 mg/dl (2.5-4.9); Total Protein 6.2 gm/dl (6.0-8.3)
--- NOTE | 2023-12-06 07:11 | Orthopedic Progress Note ---
Date of Service December 06, 2023 Assessment & Plan (1) Foot abscess, left: Plan: 57-year-old male with longstanding diabetes now postop day 1 from I&D of a left foot abscess. It is growing Staph aureus. Definitive sensitivities are pending but likely the same Stalpex and is applied. He is on Ancef. He will need probably 2 weeks of IV antibiotics probably by 2 to 4 weeks of p.o. antibiotics. We have a consult for the wound care nurse to come and put a wound VAC on today. Once that is on he can probably be discharged on antibiotics once a can be arranged. He will need wound VAC care postoperatively. 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 Admission and Anticipated Discharge Date Admission Date: December 01, 2023 Subjective 57-year-old gentleman with longstanding diabetes now postop day 1 from I&D of the left foot abscess. He is also had some staph bacteremia. Today he is doing well this morning. Had no particular pain. Physical Exam Physical Exam: Physical examination is a pleasant middle-aged male. Examination of left foot reveals the dressing be clean dry and in place. Results & Data Vital Signs (Past 12 Hours) Vital Signs Temp Pulse Pulse Resp BP Pulse Ox O2 Del Method 12/06/23 04:00 36.9 C 83 18 145/71 H 96 Room Air 12/06/23 00:00 37.0 C 88 18 136/70 95 Room Air 12/05/23 22:30 109 H Laboratory Results Cultures well from the left foot reveal gram-positive cocci/staph. Sensitivities are pending. Likely methicillin-sensitive and likely the same bacteria that is growing from his blood.
[2023-12-06] MEDS: MULTIVITAMIN TAB PO SCH (08:11)
[2023-12-06] MEDS ORDERED: LANTUS PER UNIT CHARGE SQ SCH ×2 (09:00)
--- NOTE | 2023-12-06 12:35 | Pharmacy Report ---
Pharmacy Glycemic Short Note 2 - Date of Service December 06, 2023 - Glycemic Short BSG Results (Last 24 hours): 12/05/23 12/05/23 12/05/23 14:33 17:24 20:57 Glucose POC Glucose 216 H 235 H 289 H 12/06/23 12/06/23 12/06/23 06:05 08:26 12:20 Glucose 161 H POC Glucose 181 H 227 H OUTPATIENT ANTIDIABETIC REGIMEN: * Lantus 15 units SQ Daily * Novolog CF 60, CR 20 BF, 15 AUDRA & DIN (max TDD 30 units/day) HbA1c 6.6% (12/02/23) ASSESSMENT: 12/06/23: * Blood sugars elevated post I&D yesterday, but again current Novolog parameters are much tighter than home ones * Will tighten carb ratio today and allow for increased basal tomorrow morning (via scale) 12/05/23: * Magen is a 57 YOM admitted with a foot infection and a history of type 1 diabetes mellitus. He went for debridement of the infection today. Pharmacy has been consulted by orthopedic surgery to assist with glycemic management while inpatient. * Fasting BSG this AM acceptable, will continue current basal regimen. Only glycemic stressor is Ancef for foot infection. * Post-prandial BSGs not well-controlled, suggesting a need for tighter carbohydrate coverage. Hesitant to adjust too aggressively since he is receiving a lot more than home dosage. PLAN FOR INPATIENT GLYCEMIC CONTROL: * Basal insulin 15-18 units SC qAM (see EHR for details) * Bolus insulin * NovoLog per scale ACHS or Q6hrs while NPO * Goal Range: Low 110 mg/dL - High 140 mg/dL * Correction Factor: 20 mg/dL/unit * Nutritional / Prandial insulin per carb ratio of 1 unit per 5 grams CHO consumed
--- NOTE | 2023-12-06 15:15 | Hospitalist Progress Note ---
Date of Service December 06, 2023 Assessment & Plan (1) Sepsis: Plan 57-year-old male with past medical history significant for type 1 diabetes, mild nonproliferative diabetic retinopathy, vitamin D deficiency, history of amputation of bilateral metatarsophalangeal joint admitted for fevers chills and dark urine going on since last week and also callus in his left dorsal aspect of foot draining since last week. Sepsis Bacteremia, gram positive Osteomyelitis left foot Abscess of left foot Presented with tachycardia and leukocytosis and now bacteremia, infectious source left foot Having fevers at home per patient. Febrile overnight Has evidence of a UTI, urine Cx ordered and pending MRI left foot noting abscess and osteomyelitis of left first metatarsal Foot xray reviewed and no evidence of osteomyelitis Wound culture currently growing staph aureus Blood Cx x1 set on admission grew staph aureus in 1 bottle, repeat blood Cx NGTD Follow aspiration Cx from 12/03, currently growing staph aureus Was originally on Zosyn and Daptomycin ID was consulted, recommended transition to Ancef TTE ordered in setting of gram positive bacteremia, possible need for EUGENIO Podiatry consult appreciated, recommended ortho consult for possible debridement/I&D Ortho consulted, appreciate recs. Noted/Stated the following: -"We recommended aspiration of the fluid from the left foot and patient agreed. We aspirated about 12 ml of cloudy purulent fluid and sent this for analysis. We'll make him npo after midnight in case he needs some surgery for this. We will plan on possible I & D of the left foot tomorrow (pending lab results). He might need a wound vac post op." s/p I & D with ortho on 12/04, appreciate further recs Plan to d/c on IV Ancef, needs PICC placement, wound vac followup, orthotics consulted. Continue to monitor Hypomagnesemia replete as needed Diabetes type 1 Continue basal insulin and SSI Will follow blood sugars Anemia Hemoglobin of 11.7-->11.3-->11.5 today Recent outpatient hemoglobin 14.4 Anemia W/U--> iron deficiency. Will give iron. Will need GI W/U Elevated bilirubin Bilirubin 1.9--> 2.5--> 2.2 today Alk phos 114-->112-->140 today Possible from sepsis Follow repeat labs. US reviewed and not significant Diet: DMI DVT prophylaxis: SCDs for now Disposition: per PT/OT recs after surgery Admission and Anticipated Discharge Date Admission Date: December 01, 2023 Subjective Pt was seen sitting on bed. Denied acute concerns. Wound vac on left foot. Review of Systems Review of Systems: All systems reviewed & are unremarkable except as noted in Subjective Physical Exam Physical Exam: General: Alert, oriented. No acute distress Skin: erythema to left foot Psych: Appropriate mood and affect HEENT: NC/AT CV: RRR Resp: Breath sounds clear bilaterally, no increased effort of breathing. Abdomen: Soft, nontender, nondistended Extremities: Left foot with noted improved erythema and swelling, wound vac in place Results & Data Results & Data Vital Signs (Past 12 Hours) Vital Signs Temp Pulse Resp BP Pulse Ox O2 Del Method 12/06/23 09:19 Room Air 12/06/23 08:08 36.7 C 92 H 16 150/76 H 94 Room Air 12/06/23 04:00 36.9 C 83 18 145/71 H 96 Room Air
[2023-12-06] MEDS: LORazepam 2 MG/1 ML VIAL ONE (16:45)
[2023-12-07 05:42] LABS: Basophils # (auto) 0.07 K/uL (0.00-0.20); Basophils % (auto) 0.7 %; Eosinophils # (auto) 0.22 K/uL (0.00-0.50); Eosinophils % (auto) 2.2 %; Hematocrit (blood only) 36.1 % (42.0-52.0); Hemoglobin 11.9 g/dl (14.0-18.0); Immature Granulocytes # (auto) 0.32 K/uL (0.01-0.20); Immature Granulocytes % (auto) 3.2 %; Lymphocytes # (auto) 1.91 K/uL (1.20-3.40); Lymphocytes % (auto) 18.9 %; Mean Corpuscular Hemoglobin 27.8 pg (25.0-34.0); Mean Corpuscular Volume 84.3 fL (80.0-100.0); Mean Platelet Volume 9.4 fL (9.4-12.4); Monocytes % (auto) 6.9 %; Neutrophils # (auto) 6.87 K/uL (1.40-6.50); Neutrophils % (auto) 68.1 %; Platelet Count 456 K/uL (130-400); RDW Coefficient of Variation 12.6 % (11.5-14.5); RDW Standard Deviation 37.5 fL (36.4-46.3); Red Blood Count 4.28 M/uL (4.70-6.10); White Blood Count 10.09 K/ul (4.8-10.8)
[2023-12-07 06:00] LABS: Albumin Level 3.1 gm/dl (3.4-5.0); BUN Creatinine Ratio 16.7 (10-20); Bilirubin,Total 0.6 mg/dl (0.2-1.0); Calcium 8.8 mg/dl (8.6-10.3); Creatinine Clr Calc Pharmacy 103.5 ml/min; Est GFR (African American) 117.8 ml/min; Est GFR (Non-African American) 101.6 ml/min; Globulin 3.2 gm/dl (2.5-4.0); Magnesium 1.9 mg/dl (1.7-2.4); Phosphorus 3.7 mg/dl (2.5-4.9); Potassium 4.1 mmol/L (3.5-5.1); Total Protein 6.3 gm/dl (6.0-8.3)
[2023-12-07] MEDS: LANTUS PER UNIT CHARGE SQ SCH (09:13)
--- NOTE | 2023-12-07 12:05 | Hospitalist Progress Note ---
Date of Service December 07, 2023 Assessment & Plan (1) Sepsis: Plan 57-year-old male with past medical history significant for type 1 diabetes, mild nonproliferative diabetic retinopathy, vitamin D deficiency, history of amputation of bilateral metatarsophalangeal joint admitted for fevers chills and dark urine going on since last week and also callus in his left dorsal aspect of foot draining since last week. Sepsis Bacteremia, gram positive Osteomyelitis left foot Abscess of left foot Presented with tachycardia and leukocytosis and now bacteremia, infectious source left foot Having fevers at home per patient. Febrile overnight Has evidence of a UTI, urine Cx ordered and pending MRI left foot noting abscess and osteomyelitis of left first metatarsal Foot xray reviewed and no evidence of osteomyelitis Wound culture currently growing staph aureus Blood Cx x1 set on admission grew staph aureus in 1 bottle, repeat blood Cx NGTD Follow aspiration Cx from 12/03, currently growing staph aureus Was originally on Zosyn and Daptomycin ID was consulted, recommended transition to Ancef TTE ordered in setting of gram positive bacteremia, possible need for EUGENIO Podiatry consult appreciated, recommended ortho consult for possible debridement/I&D Ortho consulted, appreciate recs. Noted/Stated the following: -"We recommended aspiration of the fluid from the left foot and patient agreed. We aspirated about 12 ml of cloudy purulent fluid and sent this for analysis. We'll make him npo after midnight in case he needs some surgery for this. We will plan on possible I & D of the left foot tomorrow (pending lab results). He might need a wound vac post op." s/p I & D with ortho on 12/04, appreciate further recs Plan to d/c on IV Ancef, needs PICC placement, wound vac followup, orthotics consulted. 12/06- PICC consent obtained, order placed for PICC Continue to monitor Hypomagnesemia replete as needed Diabetes type 1 Continue basal insulin and SSI Will follow blood sugars Anemia Hemoglobin of 11.7-->11.3-->11.5 today Recent outpatient hemoglobin 14.4 Anemia W/U--> iron deficiency. Will give iron. Will need GI W/U Elevated bilirubin Bilirubin 1.9--> 2.5--> 2.2 today Alk phos 114-->112-->140 today Possible from sepsis Follow repeat labs. US reviewed and not significant Diet: DMI DVT prophylaxis: SCDs for now Disposition: per PT/OT recs after surgery Admission and Anticipated Discharge Date Admission Date: December 01, 2023 Subjective Pt was seen sitting on bed. Denied acute concerns. Wound vac on left foot. improved erythema Review of Systems Review of Systems: All systems reviewed & are unremarkable except as noted in Subjective Physical Exam Physical Exam: General: Alert, oriented. No acute distress Skin: erythema to left foot Psych: Appropriate mood and affect HEENT: NC/AT CV: RRR Resp: Breath sounds clear bilaterally, no increased effort of breathing. Abdomen: Soft, nontender, nondistended Extremities: Left foot with noted improved erythema and swelling, wound vac in place Results & Data Results & Data Vital Signs (Past 12 Hours) Vital Signs Temp Pulse Resp BP Pulse Ox O2 Del Method 12/07/23 08:30 36.6 C 100 H 20 158/75 H 94 Room Air 12/07/23 02:43 36.4 C L 86 16 157/80 H 95 Room Air
[2023-12-08 05:35] LABS: Basophils # (auto) 0.06 K/uL (0.00-0.20); Basophils % (auto) 0.6 %; Eosinophils # (auto) 0.16 K/uL (0.00-0.50); Eosinophils % (auto) 1.5 %; Hematocrit (blood only) 35.5 % (42.0-52.0); Hemoglobin 11.6 g/dl (14.0-18.0); Immature Granulocytes # (auto) 0.28 K/uL (0.01-0.20); Immature Granulocytes % (auto) 2.6 %; Lymphocytes # (auto) 1.46 K/uL (1.20-3.40); Lymphocytes % (auto) 13.5 %; Mean Corpuscular Hemoglobin 27.7 pg (25.0-34.0); Mean Corpuscular Hgb Conc 32.7 g/dL (32.0-36.0); Mean Corpuscular Volume 84.7 fL (80.0-100.0); Mean Platelet Volume 9.1 fL (9.4-12.4); Monocytes # (auto) 0.64 K/uL (0.11-0.59); Monocytes % (auto) 5.9 %; Neutrophils # (auto) 8.25 K/uL (1.40-6.50); Neutrophils % (auto) 75.9 %; Platelet Count 520 K/uL (130-400); RDW Coefficient of Variation 12.6 % (11.5-14.5); RDW Standard Deviation 37.9 fL (36.4-46.3); Red Blood Count 4.19 M/uL (4.70-6.10); White Blood Count 10.85 K/ul (4.8-10.8)
[2023-12-08 05:50] LABS: Albumin Level 3.2 gm/dl (3.4-5.0); BUN Creatinine Ratio 22.1 (10-20); Bilirubin,Total 0.5 mg/dl (0.2-1.0); Calcium 8.9 mg/dl (8.6-10.3); Creatinine Clr Calc Pharmacy 131.3 ml/min; Est GFR (African American) 124.6 ml/min; Est GFR (Non-African American) 107.5 ml/min; Globulin 3.2 gm/dl (2.5-4.0); Potassium 4.2 mmol/L (3.5-5.1); Total Protein 6.4 gm/dl (6.0-8.3)
[2023-12-08] MEDS: LANTUS PER UNIT CHARGE SC SCH (08:42)
--- NOTE | 2023-12-08 13:38 | Hospitalist Progress Note ---
Date of Service December 08, 2023 Assessment & Plan (1) Sepsis: Plan 57-year-old male with past medical history significant for type 1 diabetes, mild nonproliferative diabetic retinopathy, vitamin D deficiency, history of amputation of bilateral metatarsophalangeal joint admitted for fevers chills and dark urine going on since last week and also callus in his left dorsal aspect of foot draining since last week. Sepsis Bacteremia, gram positive Osteomyelitis left foot Abscess of left foot Presented with tachycardia and leukocytosis and now bacteremia, infectious source left foot Having fevers at home per patient. Febrile overnight Has evidence of a UTI, urine Cx ordered and pending MRI left foot noting abscess and osteomyelitis of left first metatarsal Foot xray reviewed and no evidence of osteomyelitis Wound culture currently growing staph aureus Blood Cx x1 set on admission grew staph aureus in 1 bottle, repeat blood Cx NGTD Follow aspiration Cx from 12/03, currently growing staph aureus Was originally on Zosyn and Daptomycin ID was consulted, recommended transition to Ancef TTE ordered in setting of gram positive bacteremia, possible need for EUGENIO Podiatry consult appreciated, recommended ortho consult for possible debridement/I&D Ortho consulted, appreciate recs. Noted/Stated the following: -"We recommended aspiration of the fluid from the left foot and patient agreed. We aspirated about 12 ml of cloudy purulent fluid and sent this for analysis. We'll make him npo after midnight in case he needs some surgery for this. We will plan on possible I & D of the left foot tomorrow (pending lab results). He might need a wound vac post op." s/p I & D with ortho on 12/04, appreciate further recs Plan to d/c on IV Ancef, needs PICC placement, wound vac followup, orthotics consulted. 12/06- PICC consent obtained, order placed for PICC 12/07- PICC in place Continue to monitor Hypomagnesemia replete as needed Diabetes type 1 Continue basal insulin and SSI Will follow blood sugars Anemia Hemoglobin of 11.7-->11.3-->11.5 today Recent outpatient hemoglobin 14.4 Anemia W/U--> iron deficiency. Will give iron. Will need GI W/U Elevated bilirubin Bilirubin 1.9--> 2.5--> 2.2 today Alk phos 114-->112-->140 today Possible from sepsis Follow repeat labs. US reviewed and not significant Diet: DMI DVT prophylaxis: SCDs for now Disposition: per PT/OT recs after surgery Admission and Anticipated Discharge Date Admission Date: December 01, 2023 Subjective Pt was seen sitting in chair near bed. Denied acute concerns. Wound vac on left foot. improved erythema Review of Systems Review of Systems: All systems reviewed & are unremarkable except as noted in Subjective Physical Exam Physical Exam: General: Alert, oriented. No acute distress Skin: erythema to left foot Psych: Appropriate mood and affect HEENT: NC/AT CV: RRR Resp: Breath sounds clear bilaterally, no increased effort of breathing. Abdomen: Soft, nontender, nondistended Extremities: Left foot with noted improved erythema and swelling, wound vac in place Results & Data Results & Data Vital Signs (Past 12 Hours) Vital Signs Temp Pulse Pulse Resp BP Pulse Ox O2 Del Method 12/08/23 11:51 36.6 C 87 16 129/68 97 Room Air 12/08/23 08:02 36.6 C 97 H 16 156/76 H 96 Room Air 12/08/23 07:27 91 H 12/08/23 04:11 36.7 C 94 H 16 158/80 H 95 Room Air
--- NOTE | 2023-12-08 15:10 | Pharmacy Report ---
Pharmacy Glycemic Short Note 2 - Date of Service December 08, 2023 - Glycemic Short BSG Results (Last 24 hours): 12/07/23 12/07/23 12/07/23 17:00 20:24 20:28 Glucose POC Glucose 87 56 L* 62 L* 12/07/23 12/08/23 12/08/23 21:17 05:13 08:13 Glucose 250 H POC Glucose 70 280 H 12/08/23 12:04 Glucose POC Glucose 178 H OUTPATIENT ANTIDIABETIC REGIMEN: * Lantus 15 units SQ Daily * Novolog CF 60, CR 20 BF, 15 AUDRA & DIN (max TDD 30 units/day) HbA1c 6.6% (12/02/23) ASSESSMENT: 12/08/23: * BSGs yesterday were 663-460-56-70 mg/dl. Fasting BSG today was 250 mg/dl. * Patient received 18 units of basal insulin yesterday all in the morning. Suspect this is not lasting till the next day morning since fasting sugars are elevated. So, split up basal dose to 10 units BID hoping to get better fasting blood sugar control. * Novolog parameters at breakfast were tightened slightly today. Pre-lunch BSG trended down so parameters loosened back up to prevent low sugars at dinner and HS. 12/06/23: * Blood sugars elevated post I&D yesterday, but again current Novolog parameters are much tighter than home ones * Will tighten carb ratio today and allow for increased basal tomorrow morning (via scale) 12/05/23: * Magen is a 57 YOM admitted with a foot infection and a history of type 1 diabetes mellitus. He went for debridement of the infection today. Pharmacy has been consulted by orthopedic surgery to assist with glycemic management while inpatient. * Fasting BSG this AM acceptable, will continue current basal regimen. Only glycemic stressor is Ancef for foot infection. * Post-prandial BSGs not well-controlled, suggesting a need for tighter carbohydrate coverage. Hesitant to adjust too aggressively since he is receiving a lot more than home dosage. PLAN FOR INPATIENT GLYCEMIC CONTROL: * Basal insulin * Lantus 10 units SC BID * Bolus insulin * NovoLog per scale ACHS or Q6hrs while NPO * Goal Range: Low 110 mg/dL - High 140 mg/dL * Correction Factor: 25 mg/dL/unit * Nutritional / Prandial insulin per carb ratio of 1 unit per 5 grams CHO consumed
[2023-12-09 06:33] LABS: Basophils # (auto) 0.07 K/uL (0.00-0.20); Basophils % (auto) 0.8 %; Eosinophils # (auto) 0.17 K/uL (0.00-0.50); Eosinophils % (auto) 1.8 %; Hematocrit (blood only) 36.1 % (42.0-52.0); Hemoglobin 11.9 g/dl (14.0-18.0); Immature Granulocytes # (auto) 0.26 K/uL (0.01-0.20); Immature Granulocytes % (auto) 2.8 %; Lymphocytes % (auto) 17.2 %; Mean Corpuscular Hemoglobin 28.1 pg (25.0-34.0); Mean Corpuscular Volume 85.3 fL (80.0-100.0); Mean Platelet Volume 9.2 fL (9.4-12.4); Monocytes # (auto) 0.63 K/uL (0.11-0.59); Monocytes % (auto) 6.8 %; Neutrophils # (auto) 6.59 K/uL (1.40-6.50); Neutrophils % (auto) 70.6 %; Platelet Count 565 K/uL (130-400); RDW Coefficient of Variation 12.8 % (11.5-14.5); Red Blood Count 4.23 M/uL (4.70-6.10); White Blood Count 9.32 K/ul (4.8-10.8)
[2023-12-09 06:36] LABS: Albumin Level 3.4 gm/dl (3.4-5.0); Bilirubin,Total 0.5 mg/dl (0.2-1.0); Calcium 9.2 mg/dl (8.6-10.3); Est GFR (African American) 123.1 ml/min; Est GFR (Non-African American) 106.2 ml/min; Globulin 3.3 gm/dl (2.5-4.0); Potassium 4.3 mmol/L (3.5-5.1); Total Protein 6.7 gm/dl (6.0-8.3)
--- NOTE | 2023-12-09 10:17 | Pharmacy Report ---
Pharmacy Glycemic Short Note 2 - Date of Service December 09, 2023 - Glycemic Short BSG Results (Last 24 hours): 12/08/23 12/08/23 12/08/23 12:04 17:32 17:33 Glucose POC Glucose 178 H 62 L* 79 12/08/23 12/09/23 12/09/23 20:10 05:28 07:59 Glucose 297 H POC Glucose 213 H 332 H* 12/09/23 08:00 Glucose POC Glucose 340 H* OUTPATIENT ANTIDIABETIC REGIMEN: * Lantus 15 units SQ Daily * Novolog CF 60, CR 20 BF, 15 AUDRA & DIN (max TDD 30 units/day) HbA1c 6.6% (12/02/23) ASSESSMENT: 12/09/23: * Patient received total of 54 units of insulin yesterday, of which 20 units were basal insulin * Fasting BSG 340 mg/dL - despite increasing basal dose yesterday. Basal insulin was split BID to see if that would provide better coverage. * Dinner BSGs trending downward, hypoglycemic at 62 mg/dL. Potentially related to large novolog doses given at breakfast and lunch and stacking of larger insulin doses. * Reasonable to continue tighter novolog coverage this AM, but will loosen parameters at lunch time to hopefully prevent any evening hypoglycemia. Will plan to keep basal BID for another day. This is a 30% increase in home basal, so hesitant to increase further until dosing is at steady state. 12/08/23: * BSGs yesterday were 970-016-60-70 mg/dl. Fasting BSG today was 250 mg/dl. * Patient received 18 units of basal insulin yesterday all in the morning. Suspect this is not lasting till the next day morning since fasting sugars are elevated. So, split up basal dose to 10 units BID hoping to get better fasting blood sugar control. * Novolog parameters at breakfast were tightened slightly today. Pre-lunch BSG trended down so parameters loosened back up to prevent low sugars at dinner and HS. 12/06/23: * Blood sugars elevated post I&D yesterday, but again current Novolog parameters are much tighter than home ones * Will tighten carb ratio today and allow for increased basal tomorrow morning (via scale) 12/05/23: * Magen is a 57 YOM admitted with a foot infection and a history of type 1 diabetes mellitus. He went for debridement of the infection today. Pharmacy has been consulted by orthopedic surgery to assist with glycemic management while inpatient. * Fasting BSG this AM acceptable, will continue current basal regimen. Only glycemic stressor is Ancef for foot infection. * Post-prandial BSGs not well-controlled, suggesting a need for tighter carbohydrate coverage. Hesitant to adjust too aggressively since he is receiving a lot more than home dosage. PLAN FOR INPATIENT GLYCEMIC CONTROL: * Basal insulin * Lantus 10 units SC BID * Bolus insulin * NovoLog per scale ACHS or Q6hrs while NPO * Goal Range: Low 110 mg/dL - High 140 mg/dL * Correction Factor: 25 mg/dL/unit with breakfast / CF 30 rest of day * Nutritional / Prandial insulin per carb ratio of 1 unit per 5 grams CHO consumed with breakfast / CR 7 rest of day
--- NOTE | 2023-12-09 16:22 | Hospitalist Progress Note ---
Date of Service December 09, 2023 Assessment & Plan (1) Sepsis: Plan 57-year-old male with past medical history significant for type 1 diabetes, mild nonproliferative diabetic retinopathy, vitamin D deficiency, history of amputation of bilateral metatarsophalangeal joint admitted for fevers chills and dark urine going on since last week and also callus in his left dorsal aspect of foot draining since last week. Sepsis Bacteremia, gram positive Osteomyelitis left foot Abscess of left foot Presented with tachycardia and leukocytosis and now bacteremia, infectious source left foot Having fevers at home per patient. Febrile overnight Has evidence of a UTI, urine Cx ordered and pending MRI left foot noting abscess and osteomyelitis of left first metatarsal Foot xray reviewed and no evidence of osteomyelitis Wound culture currently growing staph aureus Blood Cx x1 set on admission grew staph aureus in 1 bottle, repeat blood Cx NGTD Follow aspiration Cx from 12/03, currently growing staph aureus Was originally on Zosyn and Daptomycin ID was consulted, recommended transition to Ancef TTE ordered in setting of gram positive bacteremia, possible need for EUGENIO Podiatry consult appreciated, recommended ortho consult for possible debridement/I&D Ortho consulted, appreciate recs. Noted/Stated the following: -"We recommended aspiration of the fluid from the left foot and patient agreed. We aspirated about 12 ml of cloudy purulent fluid and sent this for analysis. We'll make him npo after midnight in case he needs some surgery for this. We will plan on possible I & D of the left foot tomorrow (pending lab results). He might need a wound vac post op." s/p I & D with ortho on 12/04, appreciate further recs Plan to d/c on IV Ancef, needs PICC placement, wound vac followup, orthotics consulted. 12/06- PICC consent obtained, order placed for PICC 12/07- PICC in place 12/08- awaiting wound care supplies Continue to monitor Hypomagnesemia replete as needed Diabetes type 1 Continue basal insulin and SSI Will follow blood sugars Anemia Hemoglobin of 11.7-->11.3-->11.5 today Recent outpatient hemoglobin 14.4 Anemia W/U--> iron deficiency. Will give iron. Will need GI W/U Elevated bilirubin Bilirubin 1.9--> 2.5--> 2.2 today Alk phos 114-->112-->140 today Possible from sepsis Follow repeat labs. US reviewed and not significant Diet: DMI DVT prophylaxis: SCDs for now Disposition: per PT/OT recs after surgery Admission and Anticipated Discharge Date Admission Date: December 01, 2023 Subjective Pt was seen sitting in bed. Denied acute concerns. Wound vac on left foot. improved erythema Physical Exam Physical Exam: General: Alert, oriented. No acute distress Skin: erythema to left foot Psych: Appropriate mood and affect HEENT: NC/AT CV: RRR Resp: Breath sounds clear bilaterally, no increased effort of breathing. Abdomen: Soft, nontender, nondistended Extremities: Left foot with noted improved erythema and swelling, wound vac in place Results & Data Results & Data Vital Signs (Past 12 Hours) Vital Signs Temp Pulse Pulse Resp BP Pulse Ox O2 Del Method 12/09/23 16:09 36.9 C 92 H 18 143/67 H 97 Room Air 12/09/23 12:59 87 12/09/23 07:46 36.9 C 95 H 16 152/82 H 95 Room Air 12/09/23 05:47 88
[2023-12-10 06:58] VITALS: PULSE 94
[2023-12-10 07:34] VITALS: BP 147/76; RESP 18; TEMP 98.1; O2SAT 95
[2023-12-10 08:01] LABS: Basophils # (auto) 0.07 K/uL (0.00-0.20); Basophils % (auto) 0.7 %; Eosinophils # (auto) 0.16 K/uL (0.00-0.50); Eosinophils % (auto) 1.6 %; Hemoglobin 12.2 g/dl (14.0-18.0); Immature Granulocytes # (auto) 0.18 K/uL (0.01-0.20); Immature Granulocytes % (auto) 1.8 %; Lymphocytes # (auto) 1.37 K/uL (1.20-3.40); Lymphocytes % (auto) 13.6 %; Mean Corpuscular Hemoglobin 27.5 pg (25.0-34.0); Mean Corpuscular Volume 83.5 fL (80.0-100.0); Monocytes # (auto) 0.62 K/uL (0.11-0.59); Monocytes % (auto) 6.1 %; Neutrophils # (auto) 7.69 K/uL (1.40-6.50); Neutrophils % (auto) 76.2 %; Platelet Count 598 K/uL (130-400); RDW Coefficient of Variation 12.7 % (11.5-14.5); RDW Standard Deviation 38.6 fL (36.4-46.3); Red Blood Count 4.43 M/uL (4.70-6.10); White Blood Count 10.09 K/ul (4.8-10.8)
[2023-12-10 08:28] LABS: Albumin Level 3.6 gm/dl (3.4-5.0); Bilirubin,Total 0.5 mg/dl (0.2-1.0); Calcium 9.4 mg/dl (8.6-10.3); Creatinine Clr Calc Pharmacy 121.3 ml/min; Est GFR (African American) 121.7 ml/min; Globulin 3.6 gm/dl (2.5-4.0); Potassium 4.6 mmol/L (3.5-5.1); Total Protein 7.2 gm/dl (6.0-8.3)
[2023-12-10] MEDS ORDERED: PHARMACY GLYCEMIC MGMT CONSULT PRN (08:42)
--- NOTE | 2023-12-10 12:33 | Discharge Summary ---
Discharge Summary Date of Service December 10, 2023 Principal Dx & Hospital Course #1 = Principal Diagnosis (1) Sepsis: Plan 57-year-old male with past medical history significant for type 1 diabetes, mild nonproliferative diabetic retinopathy, vitamin D deficiency, history of amputation of bilateral metatarsophalangeal joint admitted for fevers chills and dark urine going on since last week and also callus in his left dorsal aspect of foot draining since last week. Sepsis Bacteremia, gram positive Osteomyelitis left foot Abscess of left foot Presented with tachycardia and leukocytosis and now bacteremia, infectious source left foot Having fevers at home per patient. Febrile while hospitalized Has evidence of a UTI, urine Cx with no significant growth MRI left foot noting abscess and osteomyelitis of left first metatarsal Foot xray reviewed and no evidence of osteomyelitis Wound culture from admission grew MSSA Blood Cx x1 set on admission grew MSSA in 1 bottle, follow up repeat blood Cx N GTD Had foot aspiration done by orthopedics on 12/03, culture also grew MSSA Was originally on Zosyn and Daptomycin ID was consulted, recommended transition to Ancef TTE ordered in setting of gram positive bacteremia, no evidence of endocarditis on that limited study. No EUGENIO Podiatry consulted, recommended ortho consult for possible debridement/I&D Ortho consulted, appreciate recs. Noted/Stated the following: -"We recommended aspiration of the fluid from the left foot and patient agreed. We aspirated about 12 ml of cloudy purulent fluid and sent this for analysis...." -s/p I & D with ortho on 12/04, appreciate further recs -Orthopedics noted n POD#1 "57-year-old male with longstanding diabetes now postop day 1 from I&D of a left foot abscess. It is growing Staph aureus. Definitive sensitivities are pending but likely the same Stalpex and is applied. He is on Ancef. He will need probably 2 weeks of IV antibiotics probably by 2 to 4 weeks of p.o. antibiotics. We have a consult for the wound care nurse to come and put a wound VAC on today. Once that is on he can probably be discharged on antibiotics once a can be arranged. He will need wound VAC care postoperatively. 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 Also discharged with Wound vac and supplies per ortho team. please ensure close PCP, orthopedics/podiatry followup as well as ID. Hypomagnesemia repleted as needed Diabetes type 1 basal insulin and SSI while hospitalized resumed home regimen on discharge Anemia Hemoglobin in 11 range Recent outpatient hemoglobin 14.4 Anemia W/U--> iron deficiency. Given iron infusion PCP followup Elevated bilirubin Bilirubin 1.9--> 2.5--> 2.2 Alk phos 114-->112-->140 Likely from sepsis US reviewed and unremarkable PCP followup Notes For Next Care Provider Medication Changes From Visit 6 weeks of IV Ancef 2g q8h, end date of Jan 15 Per ortho, aspirin 81mg BID for DVT prophylaxis Admission HPI Per Admitting Provider 57-year-old male with past medical history significant for type 1 diabetes, mild nonproliferative diabetic retinopathy, vitamin D deficiency, history of amputation of bilateral metatarsophalangeal joint comes because of fevers chills and dark urine going on since last Saturday and also callus in his left dorsal aspect of foot draining since last . In the ER urine came back positive. Patient had episode of mild burning micturition. Denies any blood in the urine. States he is following with podiatry at [place] for his callus. He has special boots. Ambulating okay. He had episode of vomiting today. After that his appetite is improved. Feeling weak and tired. Denies any headache or dizziness. Vision is okay currently. No earache. Had runny nose for couple of days but currently resolved. No sore throat. Currently no cough. No chest pain or shortness of breath. Last couple of days slept on recliner and has some mild flank discomfort. No abdominal pain. Normal bowel movements. [facility] Past medical history. As mentioned above. Past surgical history. Palate/uvula surgery. Amputation of metatarsophalangeal joint bilateral. S/p appendectomy. S/p cholecystectomy. Status post left hip partial hemiarthroplasty. Social history. . Former smoker [id number]. Currently no alcohol use. No drug use. Family history. Brother had heart disorder. Admission Exam Per Admitting Provider General- Not in distress. Head- atraumatic Eyes- PERRL. ENT- oropharynx clear Neck- supple, no JVD. Lungs- clear to auscultation no wheezing or crackles. Heart- regular rhythm; no murmur, no gallop. Abdomen- normal bowel sounds, soft, nontender, no distension. Extremities- Left foot dorsal aspect infected callus seen with mild drainage Neuro- alert, oriented PERRL, ; no facial palsy; no dysarthria; moves extremities Discharge Exam General: Alert, oriented. No acute distress Skin: improvederythema to left foot Psych: Appropriate mood and affect HEENT: NC/AT CV: RRR Resp: Breath sounds clear bilaterally, no increased effort of breathing. Abdomen: Soft, nontender, nondistended Extremities: Left foot with noted improved erythema and swelling, wound vac in place Updated Medication List Medication Instructions Recorded Confirmed Type insulin aspart U-100 100 unit/mL 1 sliding scale dose subcut UD 12/01/23 12/01/23 History subcutaneous solution insulin glargine 100 unit/mL 15 unit subcut DAILY 12/01/23 12/01/23 History subcutaneous solution (Lantus U-100 Insulin) aspirin 81 mg tablet,delayed 81 mg PO BID #60 tabs 12/10/23 Rx release Hospital Stay Data Consultations 12/01/23 22:56 ED Decision to Admit Stat 12/02/23 08:00 Consult Podiatry Routine 12/03/23 12:10 Consult Infectious Diseases Routine 12/04/23 08:05 Consult Orthopedic Surgery Routine Procedures Performed Operation Date: 12/05/23 12:30 Actual Procedures p Left Foot Incision and Drainage(Left) - Ramirez Espinoza MD Diagnostic Imagining Performed 12/02/23 13:58 US liver Routine 12/03/23 15:12 MRI Foot [MR foot LT wo/w con] Routine Foot X-Ray 12/01/23 19:06 XR foot LT min 3V routine CLINICAL HISTORY: Ulcer of foot, Diabetic TECHNIQUE: 3 views of the left foot were obtained. Comparison: None available at the time of this dictation. FINDINGS: Status post amputation of the second and third digits. Degenerative changes are seen throughout the foot. No focal erosions are seen to suggest osteomyelitis. Soft tissue swelling is seen with suggestion of ulceration versus subcutaneous gas. IMPRESSION: No radiographic evidence of osteomyelitis. If clinical concern remains, MRI is a more sensitive modality. ACT 112: Negative or not required by law. Electronically signed by: Jessee Viveros M.D. 12/02/2023 7:08 AM Liver Ultrasound 12/02/23 13:58 ABDOMINAL ULTRASOUND, RIGHT UPPER QUADRANT HISTORY: elevated Bilirubin. COMPARISON: None. FINDINGS: Pancreas: The pancreas demonstrates a normal echotexture. Liver: No hepatic masses or intrahepatic bile duct dilatation. The main portal vein is patent. 18 cm in length. Gallbladder: The gallbladder is surgically absent. CBD: 4 mm. Right kidney: No hydronephrosis. IMPRESSION: 1. No significant abnormality identified within the right upper quadrant. 2. Prior cholecystectomy ACT 112: Negative or not required by law. Electronically signed by: Maurilio Falcon M.D. 12/02/2023 3:08 PM Chest X-Ray 12/03/23 02:59 XR chest 1V portable HISTORY: cough COMPARISON: None. FINDINGS: No pneumothorax. No pleural effusions. The heart is mildly enlarged. Mild diffuse interstitial thickening most pronounced within the right lung and lung bases. This may represent mild congestive change on the background of chronic interstitial change. An interstitial pneumonitis is considered less likely but not entirely excluded. No focal lung consolidations to suggest a pneumonia. IMPRESSION: Mild diffuse interstitial thickening most pronounced within the right lung and lung bases. This may represent mild congestive change on the background of chronic interstitial change. An interstitial pneumonitis is considered less likely but not entirely excluded. ACT 112: Negative or not required by law. Electronically signed by: Maurilio Falcon M.D. 12/03/2023 7:21 AM Foot MRI 12/03/23 15:12 Exam(s): MRI LEFT FOOT W/WO Contrast IV Amt: 8cc gadavist EXAM: MR Left Lower Extremity Without and With Intravenous Contrast, Foot CLINICAL HISTORY: Reason for exam: r/o osteomyelitis. TECHNIQUE: Multiplanar magnetic resonance images of the left foot without and with intravenous contrast. CONTRAST: Patient received 8cc gadavist of IV contrast COMPARISON: No relevant prior studies available. FINDINGS/IMPRESSION: Status-post amputation of the great toe at the MTP. Fluid collection surrounding the distal first metatarsal stump measures 4.0 x 3.4 x 1.0 cm. Soft tissue abscess cannot be excluded, especially given that this tract to the skin surface. Associated, severe tenosynovitis of the extensor hallucis (series 7 image 8). Mild edema in the first metatarsal, concerning for osteomyelitis. Amputation of the second ray at the second MTP. Electronically signed by: Emmanuel Cardoza MD 12/04/23 02:37 AM Discharge Instructions Given to Patient (Per Discharging Provider) Mr Castillo, You were admitted and treated for a bone and blood infection and abscess in your left foot. You had surgery with Orthopedics. You were seen by Infectious Disease who recommends IV antibiotic treatment for 6 weeks from the date of your surgery. Please continue with your IV antibiotic regimen as advised and the wound vac per orthopedic surgery. Please keep follow up after discharge, they indicate that you wanted to follow up with your painter and decorator apprentice locally. Orthopedic surgery also started you on aspirin 81mg BID for DVT prophylaxis. Please continue with that. Please also keep close follow up with your primary care provider after discharge. Please do not hesitate to come back to the emergency room if your symptoms worsen or return. It was a pleasure taking care of you while you were here. Total Time Total Time Spent Total Time Spent (In Minutes): 65
--- NOTE | 2023-12-11 14:49 | Coding Query ---
DEBRIDEMENT DOCUMENTATION To promote full compliance with coding requirements relating to patient care, physician participation is requested in all cases of consulting psychologist uncertainty. Please assist us with the question(s) below: 12/04 OP NOTE: Sharp dissection was Through directly down to the infection and abscess area which was at the metatarsal head. We are debrided this somewhat proximally and distally to expose all abscessed areas. I then irrigated this extensively. We then took the plantar foot ulcer and debrided it above the right Randall/callus. Please place an X in the parenthesis (x). If other, please document the finding: Type of Debridement: (x ) Excisional Debridement- Cutting away necrotic, devitalized tissue or slough to the level of viable tissue using a sharp instrument (i.e. scalpel, scissors, etc.) ( ) Non Excisional Debridement- The removal of necrotic, devitalized tissue or slough by means of scraping, mechanical brushing, flushing, or washing (i.e. irrigation,whirlpool);minor removal of loose fragments. ( ) Other (please specify): Instrument Used: (x ) Scissors ( x) Scalpel (x ) Curette ( ) Other (please specify): Depth of Debridement: ( ) Skin ( ) Skin and Subcutaneous Tissue (x ) Skin, Subcutaneous Tissue and Muscle ( ) Skin, Subcutaneous Tissue, Muscle and Bone ( ) Other (please specify): Please Specify the Size of Debridement in cm2: 4 cm Thank you Sis GARZA
--- NOTE | 2023-12-11 14:53 | Coding Query ---
DEBRIDEMENT DOCUMENTATION To promote full compliance with coding requirements relating to patient care, physician participation is requested in all cases of dairy clerk uncertainty. Please assist us with the question(s) below: 12/03 PODIATRY CONS: Bilateral hallux amputations are appreciated. There is a well-circumscribed neuropathic ulceration noted sub-left first metatarsal head. Upon sharp debridement, no underlying bone involvement is suspected. Please place an X in the parenthesis (x). If other, please document the finding: Type of Debridement: ( ) Excisional Debridement- Cutting away necrotic, devitalized tissue or slough to the level of viable tissue using a sharp instrument (i.e. scalpel, scissors, etc.) (X) Non Excisional Debridement- The removal of necrotic, devitalized tissue or slough by means of scraping, mechanical brushing, flushing, or washing (i.e. irrigation,whirlpool);minor removal of loose fragments. ( ) Other (please specify): Instrument Used: ( ) Scissors ( ) Scalpel (X) Curette ( ) Other (please specify): Depth of Debridement: ( ) Skin (X) Skin and Subcutaneous Tissue ( ) Skin, Subcutaneous Tissue and Muscle ( ) Skin, Subcutaneous Tissue, Muscle and Bone ( ) Other (please specify): Please Specify the Size of Debridement in cm2: Thank you Sis GARZA
== END 2023-12-10 13:59 | disposition home health service (06) | DRG 854 ==
LOC: ED 18:45 → SUATTDRO 23:11 → 2W 23:11